=== PATIENT | female | born 1955 | race Caucasian/White ===

== ENCOUNTER 2016-08-13 12:06 | Inpatient (IN) | payer BC ==
[~2016-08-13] VITALS: Ht 170.2 cm; Wt 105.5 kg
[~2016-08-13 12:06] MED LIST: ALLEGRA ALLERG180 MG OR; ALPRAZOLAM0.25 MG PO; AMITRIPTYLINE 225 MG PO; BACID PROBIOTIC1 TAB PO; BENADRYL 25MG C25 MG PO; BISOPROLOL 5MG T5 MG PO; COREG 12.5 MG12.5 MG PO; DIFLUCAN 100MG100 MG PO; ENDOCET 325 MG-1 TA1 PO; ESTRADIOL1 EAC1 TD; FENOFIBRATE145 MG PO; FENTANYL 225 MCG/EAC TD; FISH OIL EC 1,1 EACH PO; FLAGYL 500MG.500 MG PO; GOOD NEIGHBOR600 M1 PO; GOOD SENSE400 MG/5 M PO; IBUPROFEN400 MG PO; INVANZ 1 GM1 GM IM; IPRATROPIUM BROM3 M2 IH; LEVAQUIN500 MG PO; LEVOTHYROXIN0.175 MG PO; LEVOTHYROXINE0.15 MG PO; LEXAPRO 10 MG T10 MG PO; MAG-G500 MG PO; MELATIN1 TAB PO; MELOXICAM15 MG PO; MIRALAX17 GM/PACK PO; NAMENDA XR28 MG PO; NEIGHBOR P PO; NYSTATIN 1 ML1 M1 TP; OMEPRAZOLE20 MG PO; PROMETHAZINE25 MG PR; PULMICORT0.25 MG/2 IH; SENNA LAXATIVE8.6 MG PO; SIMVASTATIN20 MG PO; TIMOPTIC OCUDOSE OP; VITAMIN C500 MG/15 PO; ZOFRAN4 MG PO
[2016-08-13 12:13] VITALS: BP 129/78
--- NOTE | 2016-08-13 12:26 | Emergency Room Report ---
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 N Clinical Suspician of Infection? N Mental Status: 1 - Regular (Normal Baseline) Sepsis Risk: Have you (or family members/close friends) recently traveled outside the [place]? N If Yes, where/when: Have you had exposure to infectious disease within the past month? TB? Other? Specify: Comment The patient was discharged 2 days ago after having diverticulitis with perforation and abscess requiring a sigmoid colectomy and partial small bowel resection on 08/04 and complicated by a postoperative ileus. She was doing well until this morning a couple of hours ago when she had sudden onset of severe lower abdominal pain inferior to her incision in the midline. She says it felt like gas that she could not pass any gas. She took a pain pill 1 hour ago and the pain has markedly improved now. No fever or vomiting. called Dr. Green and was informed he was in surgery and to have the patient brought to the emergency room. She was scheduled to have the remainder of her hemant removed at 2 PM today, rescheduled that for Tuesday. ALLERGIES Coded Allergies: adhesive tape (Intermediate, I-RASH 08/13/16) hydrocodone (Intermediate, I-ITCHING 08/13/16) Home Medications Active Scripts Levofloxacin (Levaquin 500MG) 500 MG PO DAILY #7 TAB Prov: 08/11/16 METRONIDAZOLE (Metronidazole) 500 MG PO TID #21 TAB Prov: 08/11/16 OXYCODONE HCL/ACETAMINOPHEN (Endocet 5-325 Tablet) 1-2 EACH PO Q4HP PRN pain #17 TAB Prov: 08/11/16 Reported Medications ACIDOPH/L.BULG/BIF.B/S.THERMOP (Bacid Caplet) 1 TAB PO BID IPRATROPIUM/ALBUTEROL SULFATE (Iprat-Albut 0.5-3(2.5) MG/3 Ml) 3 ML IH Q6HP PRN SHORTNESS OF AIR MELATONIN (Melatin) 1 TAB PO QHS Magnesium Hydroxide (Milk Of Magnesia) 30 ML PO BIDP PRN CONSTIPATION MEMANTINE HCL (Namenda XR) 28 MG PO QHS Nystatin (Nystatin 1 Ml) 1 CASEY TP DAILYP PRN RASH Promethazine Hcl (Promethazine) 25 MG [place] Q6HP PRN NAUSEA/VOMITING Senna Pod (Senna Laxative) 1 TAB PO DAILYP PRN CONSTIPATION TIMOLOL MALEATE/PF (Timoptic 0.5% Ocudose Drop) 0.2 ML OP DAILY Vit C/Ascorbate Ca/Ascorb Sod (Vitamin C 500 MG/15 Ml Liquid) 500 MG PO DAILY ALPRAZOLAM (Alprazolam 0.25MG) 0.25 MG PO BID Amitriptyline Hcl (Amitriptyline) 25 MG PO QHS Diphenhydramine Hcl (Benadryl 25MG CAP) 1-2 CAP PO Q6H PRN Carvedilol (Coreg 12.5Mg) 12.5 MG PO BID Fentanyl (Fentanyl 25MCG Patch) 25 MCG TD Q72H IBUPROFEN MICRONIZED (IBUPROFEN 400MG) 400 MG PO Q8HP PRN PAIN Escitalopram Oxalate (Lexapro 10MG) 10 MG PO DAILY Polyethylene Glycol 3350 (Miralax) 17 GM PO DAILY Omeprazole (Omeprazole 20MG) 20 MG PO DAILY Budesonide (Pulmicort) 0.25 MG IH BID ONDANSETRON HCL (Zofran 4MG Tab) 4 MG PO Q6HP PRN NAUSEA AND VOMITING History Medical History General CAD? No Angina: No [place]: No Hypertension? Yes Hyperlipidemia? Yes CHF? No DVT? No PE? No COPD? No Asthma? No Anemia? No GERD? No Gastric ulcers? No GI Bleed? No Hernia? No Thyroid Problems? Yes Hypothyroidism? No CVA? No Seizures? No Diabetes? No Renal Insuffiency? No End Stage Renal Disease? No UTI? No Stones? No BPH? No GB Disease: No Nephritic Syndrome? No Asplenia? No Hepatitis? No Sickle Cell Disease? No Arthritis? Yes Migraines? No Cataracts? No Glaucoma? No MRSA? No HIV? No TB? No Anxiety? No Depression? No Cancer? Yes Site: THYROID Immunization Hx Ped.Immunizations UTD Yes DT/Tetanus 04/22/2014 Flu 2016-17FSN Pneumonia Refuses Surgical Hx Previous Surgery?Y HYST JOINT FUSION-FINGER RK BLADDER TACK,TVT WED SINUS TONSIL/ADNOID REMOVAL THYROIDECTOMY PARATHYROIDECTOMY WISDOM TEETH TENDON REPAIR FINGER PELVIC BASAL CELL CARCINOMA TIGH RALPH BUNIONECTOMY VAGINAL SUSPENSION Family History Family Hx Diabetes Yes CAD Yes Hypertension Yes Hyperlipidemia Yes Cancer Yes TB No Social History Smoking Hx Smoker: Never Smoker Tobacco: No Type N/A Packs/day N/A Are you/the child exposed to second-hand smoke: No Alcohol Alcohol: No Review of Systems All Other Systems Reviewed and Negative Physical Exam Vital Signs Vital Signs Date Time Temp Pulse Resp B/P Pulse O2 O2 Flow FiO2 Ox Delivery Rate 08/13 1600 79 16 112/79 98 08/13 1436 79 16 107/70 95 08/13 1435 16 08/13 1311 97.8 83 18 90/62 95 08/13 1213 98.3 85 18 129/78 100 General Appearance normal appearance, WD/WN Eye Exam - bilateral eye normal exam, bilateral eye PERRL, bilateral eye EOMI Ear, Nose, Throat hearing grossly normal, normal ENT inspection Neck normal inspection, non-tender, supple, full range of motion Respiratory Status Yes: trachea midline, chest symmetrical, non tender chest. No: respiratory distress. Lung Sounds bilateral: normal breath sounds, lungs clear. 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 Yes Dewey was queried for this patient? No Reason not queried - emergent pt cond=no time Results/Orders Laboratory Tests 08/13/16 1520: Urine Color YELLOW, Urine Appearance CLEAR, Urine pH 6.5, Ur Specific [place] <= 1.005, Urine Protein NEGATIVE, Urine Ketones NEGATIVE, Urine Blood NEGATIVE, Urine Nitrate NEGATIVE, Urine Bilirubin NEGATIVE, Urine Urobilinogen 0.2, Ur Leukocyte Esterase NEGATIVE, Urine RBC OCC, Urine WBC 3-5, Ur Squamous Epith Cells 5-10, Urine Bacteria 1+, Hyaline Casts 3-5, Urine Glucose NEGATIVE 08/13/16 1345: Lactic Acid 2.4 H 08/13/16 1250: Sodium 140, Potassium 3.2 L, Chloride 104, Carbon Dioxide 24, BUN 11, Creatinine 0.9, Estimated Creat Clear 84, Estimated GFR (MDRD) 63, Glucose 147 H, Calcium 8.1 L, Total Bilirubin 0.3, AST 18, ALT 20, Alkaline Phosphatase 65, Total Protein 6.2 L, Albumin 3.2 L, Globulin 3.0, Albumin/Globulin Ratio 1.1, WBC 26.4 *H, RBC 4.84, Hgb 13.7, Hct 41.5, MCV 85.8, RDW 16.7, Plt Count 476 H, MPV 9.9, Gran % 80.1 H, Gran # 21.1 H, Total Counted 100, Lymphocytes % 11.0, Monocytes % 2.3, Eosinophils % 5.8, Basophils % 0.8, Neutrophils 81 H, Lymphocytes (Manual) 11, Lymphocytes # 2.9, Monocytes (Manual) 4, Monocytes # 0.6, Eosinophils # 1.5 H, Eosinophils # (Manual) 4 H, Basophils # 0.2, Platelet Estimate SLIGHT INCREASE, Hypochromasia 2+, Macrocytosis 1+, PUBS MCHC 32.9, MCH 28.3 08/13/16 1200: Peripheral Blood Smear Pending Current Medication Orders Sig/Masha Start time Last Medication Dose Route Stop Time Status Admin Iopamidol 75 ML ONCE ONE 08/13 1445 DC 08/13 IV 08/13 1446 1432 Sodium Chloride 10 ML ONCE ONE 08/13 1445 DC 08/13 IV 08/13 1446 1432 Hydromorphone HCl 1 MG ONCE ONE 08/13 1415 DCr 08/13 IV 08/13 1416 1435 Ondansetron HCl 4 MG ONCE ONE 08/13 1415 DC 08/13 IV 08/13 1416 1435 Ondansetron HCl 0 .STK-MED ONE 08/13 1351 DC .ROUTE Hydromorphone HCl 0 .STK-MED ONE 08/13 1350 DCr .ROUTE Sodium Chloride 1,000 ML .Q1H1M 08/13 1330 DC 08/13 IV 08/13 1430 1335 Sodium Chloride 1,000 ML .STK-MED ONE 08/13 1327 DC IV Diatrizoate Meglum/ 30 ML ONCE ONE 08/13 1230 DC 08/13 Diatrizoate Sod FT 08/13 1231 1229 Sodium Chloride 10 ML PRN PRN 08/13 1230 AC IV 08/14 1220 Diatrizoate Meglum/ 0 .STK-MED ONE 08/13 1222 DC Diatrizoate Sod .ROUTE Orders Procedure Date/time Status Decision to admit 08/13 1611 Active LACTIC ACID FOLLOW UP 08/13 1415 Active LACTIC ACID 08/13 1326 Complete DIFFERENTIAL-WBC 08/13 1250 Complete URINALYSIS/COMPLETE 08/[address] ABD/PELVIS REQ 08/13 1234 Complete IV SALINE LOCK 08/13 1220 Active CULTURE, BLOOD 08/13 1220 Active CBC WITH AUTO DIFF 08/13 1220 Complete CHEM 12 PROFILE 08/13 1220 Complete XRAY/CT/US XRAY/CT/US CT abdomen, pelvis Comment CT scan interpreted by radiologist: Status post sigmoidectomy with fluid collection in the bed of the removed sigmoid colon which could be postsurgical or due to early abscess. There is some mild stranding of the fat in the pelvic region which is nonspecific and could also be postsurgical or inflammatory. There is small amount of free air noted within the mesentery, not uncommon in a postsurgical patient. There is no evidence of extravasation of contrast. Oral contrast however has not reached the distal descending colon and rectal area. No evidence of intestinal obstruction. Progress - 12:30 PM: Declines pain medication. !5:25 PM: Discussed with Dr. Hood and Dr. Green. Initial call was to Dr. Green , but we were informed that Dr. 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 I spoke with Dr. Hood to prefer that we call Dr. Green. I spoke with Dr. Cosme who says that he is out of town and requests that Dr. Hood care for the patient, he says that he will call him himself. Patient seen by Dr. Allran in the emergency room. Departure Departure Disposition Still a Patient Clinical Impression Primary Impression: Leukocytosis Qualifiers: Leukocytosis type: unspecified Qualified Code: D72.829 - Elevated white blood cell count, unspecified Secondary Impressions: Abdominal pain Qualifiers: Abdominal location: lower abdomen, unspecified Qualified Code: R10.30 - Lower abdominal pain, unspecified Condition STABLE ED Critical Care Critical Care No at [id number]
[2016-08-13 13:14] LABS: LYMPH # 2.9 K/mm3 (0.7-4.5)
[2016-08-13 13:20] LABS: HEMOGLOBIN 13.7 g/dL (12.2-16.2)
[2016-08-13 13:48] LABS: NEUTROPHILS 81 % (42-76)
--- NOTE | 2016-08-13 15:02 | RADIOLOGY REPORT PS360 ---
CT ABD PELVIS W/ CONTRAST CLINICAL INDICATION: EXTREME LOWER ABD PAIN RECENT SURG. COMPARISON: 07/21/2016 TECHNIQUE: Axial images obtained with sagittal and coronal reformats. PROCEDURE: Oral Contrast: Gastroview IV Contrast: 75 mL's of Isovue-370 . FINDINGS: Patient has had interval bowel resection for diverticulitis. Lung bases are clear. The liver, spleen, adrenal glands, pancreas, gallbladder, and kidneys have an unremarkable appearance. There are postsurgical changes of the anterior abdominal wall. Scattered small gas bubbles are present in the lower abdomen and pelvis probably postsurgical. There is a fluid collection in the central aspect of the pelvis measuring approximately 11 cm AP and up to 3 cm transverse posteriorly and 7 cm transverse anteriorly with an air-fluid level. There is some minimal enhancement along the periphery of this collection. This could very well represent postsurgical changes. Cannot exclude the possibility of a developing abscess. This collection is in the region of the previously removed bed of the sigmoid colon. There is some mild thickening of the inferior aspect of the descending colon. No intestinal obstruction evident. There is a lipoma present at the left sartorius muscle. Degenerative changes are noted in the lumbar spine. There is some mild stranding in the fat within the pelvis which is nonspecific in a patient that is had recent abdominal pelvic surgery. IMPRESSION: 1. Status post post sigmoidectomy with a fluid collection in the bed of the removed sigmoid colon which could be postsurgical or due to early abscess. There is some mild stranding of the fat in the pelvic region which is nonspecific and could also be postsurgical or inflammatory. There is small amount of free air noted within the mesentery's not uncommon in a postsurgical patient. There is no evidence of extravasation of contrast. Oral contrast however has not reached the distal descending colon and rectal area. 2. No evidence of intestinal obstruction This report was generated using the voice recognition software. Please excuse any php mysql developer errors which may have been overlooked. Please contact our radiology department for clarification if needed.
[2016-08-13 15:33] LABS: URINE BILIRUBIN - DIPSTICK NEGATIVE (NEG); URINE BLOOD NEGATIVE (NEG)
--- NOTE | 2016-08-13 16:19 | HISTORY AND PHYSICAL REPORT ---
See Addendum History of Present Illness Chief Complaint: Abdominal Pain History of Present Illness: Patient is a 61 -year-old white female who underwent sigmoid colon resection and small bowel resection 9 days ago for refractory diverticulitis. She was discharged from the hospital 2 days ago. She has been on oral antibiotics at home. She states that she was in her usual state of health until today when she developed sudden onset of lower abdominal pain. There were no inciting symptoms. She presented to the emergency department where she was seen and evaluated. Her symptoms did improve. Her workup included CT scan which revealed mostly postoperative changes. Please see report. She was found to have a leukocytosis. Past Medical History Reports: hypertension. Surgical History Previous Surgery?Y HYST JOINT FUSION-FINGER RK BLADDER TACK,TVT WED SINUS TONSIL/ADNOID REMOVAL THYROIDECTOMY PARATHYROIDECTOMY WISDOM TEETH TENDON REPAIR FINGER PELVIC BASAL CELL CARCINOMA TIGH RALPH BUNIONECTOMY VAGINAL SUSPENSION Allergies Coded Allergies: adhesive tape (Intermediate, I-RASH 08/13/16) hydrocodone (Intermediate, I-ITCHING 08/13/16) Medications: Active Scripts Levofloxacin (Levaquin 500MG) 500 MG PO DAILY #7 TAB Prov: 08/11/16 METRONIDAZOLE (Metronidazole) 500 MG PO TID #21 TAB Prov: 08/11/16 OXYCODONE HCL/ACETAMINOPHEN (Endocet 5-325 Tablet) 1-2 EACH PO Q4HP PRN pain #17 TAB Prov: 08/11/16 Reported Medications ACIDOPH/L.BULG/BIF.B/S.THERMOP (Bacid Caplet) 1 TAB PO BID IPRATROPIUM/ALBUTEROL SULFATE (Iprat-Albut 0.5-3(2.5) MG/3 Ml) 3 ML IH Q6HP PRN SHORTNESS OF AIR MELATONIN (Melatin) 1 TAB PO QHS Magnesium Hydroxide (Milk Of Magnesia) 30 ML PO BIDP PRN CONSTIPATION MEMANTINE HCL (Namenda XR) 28 MG PO QHS Nystatin (Nystatin 1 Ml) 1 CASEY TP DAILYP PRN RASH Promethazine Hcl (Promethazine) 25 MG [place] Q6HP PRN NAUSEA/VOMITING Senna Pod (Senna Laxative) 1 TAB PO DAILYP PRN CONSTIPATION TIMOLOL MALEATE/PF (Timoptic 0.5% Ocudose Drop) 0.2 ML OP DAILY Vit C/Ascorbate Ca/Ascorb Sod (Vitamin C 500 MG/15 Ml Liquid) 500 MG PO DAILY ALPRAZOLAM (Alprazolam 0.25MG) 0.25 MG PO BID Amitriptyline Hcl (Amitriptyline) 25 MG PO QHS Diphenhydramine Hcl (Benadryl 25MG CAP) 1-2 CAP PO Q6H PRN Carvedilol (Coreg 12.5Mg) 12.5 MG PO BID Fentanyl (Fentanyl 25MCG Patch) 25 MCG TD Q72H IBUPROFEN MICRONIZED (IBUPROFEN 400MG) 400 MG PO Q8HP PRN PAIN Escitalopram Oxalate (Lexapro 10MG) 10 MG PO DAILY Polyethylene Glycol 3350 (Miralax) 17 GM PO DAILY Omeprazole (Omeprazole 20MG) 20 MG PO DAILY Budesonide (Pulmicort) 0.25 MG IH BID ONDANSETRON HCL (Zofran 4MG Tab) 4 MG PO Q6HP PRN NAUSEA AND VOMITING Additional medical history: Diverticulitis Hyperlipidemia Arthritis Smoking Hx Tobacco: No Smoker: Never Smoker Type: N/A Packs/day: N/A Are you/the child exposed to second-hand smoke: No Alcohol Alcohol: No Hx of Drug Use Drug Use? No Review of Systems Constitutional Positive for: fatigue. No: chills. Skin No: abrasions. Immune/allergy No: anaphalaxis. Eyes No: vision loss. ENT No: hearing loss. Respiratory No: shortness of air. Cardiovascular No: chest pain. GI Positive for: abdomen. No: diarrhea, hematochezia. (female) No: hematuria. Musculoskeletal Positive for: joint pain. Heme No: bleeding. Endocrine No: dyspnea. Neurological No: change in LOC. Psychiatric No: agitation. Dx/assessment/plan Problem List 1. Diverticulitis Code status: full code Plan: Given the leukocytosis and acute onset of pain with some mild equivocal findings on CT scan plan will be for admission for observation to ensure pain is improving and for IV antibiotics with a repeat complete blood count to ensure leukocytosis improving. We'll go ahead and give clear liquid diet at this time. Start intravenous levofloxacin and metronidazole. Repeat complete blood count in the morning. at [id number]
--- NOTE | 2016-08-13 16:20 | ACUTE CARE PROGRESS NOTE (QUA) ---
Progress note: - Please see history and physical at 1627
--- NOTE | 2016-08-13 16:20 | ACUTE CARE PROGRESS NOTE (QUA) ---
Progress note: - Please see history and physical at 1621
[2016-08-13 16:50] VITALS: BP 123/73
[2016-08-13 16:57] VITALS: BP 123/73
[2016-08-13] MEDS ORDERED: VITAMIN D31000 IU PO (17:29)
[2016-08-13] MEDS ORDERED: BISOPROLOL 5MG T5 MG PO (17:30)
[2016-08-13] MEDS ORDERED: FENOFIBRATE145 MG PO (17:31)
[2016-08-13] MEDS ORDERED: LEVOTHYROXINE0.15 M1 PO (17:32)
[2016-08-13] MEDS ORDERED: DIFLUCAN 100MG100 MG PO (17:32)
[2016-08-13 19:29] VITALS: BP 118/60
[2016-08-13 20:33] VITALS: BP 118/60
[2016-08-14 03:41] VITALS: BP 108/64
[2016-08-14 06:49] LABS: LYMPH # 1.3 K/mm3 (0.7-4.5); LYMPH % 5.5 % (10-50.0)
[2016-08-14 07:02] LABS: HEMOGLOBIN 12.3 g/dL (12.2-16.2)
[2016-08-14 07:41] VITALS: BP 102/64
[2016-08-14 09:00] VITALS: BP 102/64
--- NOTE | 2016-08-14 09:12 | SURGEON PROGRESS NOTE ---
Subjective data Subjective data: No significant abdominal pain at this time. She is concerned about "sepsis". Objective data Vitals,I&O,and Labs: Vital signs, intake and output,and available lab data for the last 24 hours is as noted below. Vital Signs Date Time Temp Pulse Resp B/P Pulse O2 O2 Flow FiO2 Ox Delivery Rate 08/14 0900 97.1 99 20 102/64 96 08/14 0741 97.1 99 20 102/64 96 ROOM AIR 08/14 0341 97.8 104 18 108/64 96 ROOM AIR 08/14 0054 18 08/13 2033 97.9 93 18 118/60 95 08/13 1929 97.9 93 18 118/60 95 ROOM AIR 08/13 1816 20 08/13 1657 97.4 106 20 123/73 99 ROOM AIR 08/13 1650 106 08/13 1650 97.4 106 20 123/73 08/13 1650 99 ROOM AIR 08/13 1638 97.8 79 16 112/79 98 08/13 1600 79 16 112/79 98 08/13 1436 79 16 107/70 95 08/13 1435 16 08/13 1311 97.8 83 18 90/62 95 08/13 1213 98.3 85 18 129/78 100 08/13 1500 08/13 2300 08/14 0700 Intake Total 360 Output Total Balance 360 Intake, Oral 360 Patient 81.648 kg 88.026 kg Weight Laboratory Tests Test Result Date Time Chemistry Sodium (mmoL/L) 140 08/13 1250 Potassium (mmoL/L) 3.2 08/13 1250 Chloride (mmoL/L) 104 08/13 1250 Carbon Dioxide (mmoL/L) 24 08/13 1250 BUN (mg/dL) 11 08/13 1250 Creatinine (mg/dL) 0.9 08/13 1250 Estimated Creat Clear (ML/MIN) 84 08/13 1250 Estimated GFR (MDRD) (ML/MIN) 63 08/13 1250 Glucose (mg/dL) 147 08/13 1250 Lactic Acid (MMOL/L) 4.8 08/13 1750 Calcium (mg/dL) 8.1 08/13 1250 Total Bilirubin (mg/dL) 0.3 08/13 1250 AST (U/L) 18 08/13 1250 ALT (U/L) 20 08/13 1250 Alkaline Phosphatase (U/L) 65 08/13 1250 Total Protein (gm/dL) 6.2 08/13 1250 Albumin (gm/dL) 3.2 08/13 1250 Globulin (gm/dL) 3.0 08/13 1250 Albumin/Globulin Ratio 1.1 08/13 1250 Hematology WBC (K/MM3) 23.9 08/14 615 RBC (M/mm3) 4.09 08/14 615 Hgb (g/dL) 12.3 08/14 615 Hct (%) 34.8 08/14 615 MCV (fl) 85.1 08/14 615 RDW (%) 16.7 08/14 615 Plt Count (K/mm3) 335 08/14 615 MPV (fl) 9.3 08/14 615 Gran % (%) 91.5 08/14 615 Gran # (K/mm3) 21.9 08/14 615 Total Counted (#CELLS) 100 08/13 1250 Lymphocytes % (%) 5.5 08/14 615 Monocytes % (%) 2.6 08/14 615 Eosinophils % (%) 0.3 08/14 615 Basophils % (%) 0.2 08/14 615 Neutrophils (%) 81 08/13 1250 Lymphocytes (Manual) (%) 11 08/13 1250 Lymphocytes # (K/mm3) 1.3 08/14 615 Monocytes (Manual) (%) 4 08/13 1250 Monocytes # (K/mm3) 0.6 08/14 615 Eosinophils # (K/mm3) 0.1 08/14 615 Eosinophils # (Manual) (%) 4 08/13 1250 Basophils # (K/MM3) 0.0 08/14 615 Platelet Estimate SLIGHT INCREASE 08/13 1250 Hypochromasia 2+ 08/13 1250 Macrocytosis 1+ 08/13 1250 PUBS MCHC (g/dl) 34.5 08/14 615 Immunology MCH (pg) 29.4 08/14 615 Urines Urine Color YELLOW 08/13 1520 Urine Appearance CLEAR 08/13 1520 Urine pH 6.5 08/13 1520 Ur Specific [place] <= 1.005 08/13 1520 Urine Protein (mg/dL) NEGATIVE 08/13 1520 Urine Ketones (mg/dL) NEGATIVE 08/13 1520 Urine Blood NEGATIVE 08/13 1520 Urine Nitrate NEGATIVE 08/13 1520 Urine Bilirubin NEGATIVE 08/13 1520 Urine Urobilinogen (E.U./dL) 0.2 08/13 1520 Ur Leukocyte Esterase NEGATIVE 08/13 1520 Urine RBC (rbc/hpf) OCC 08/13 1520 Urine WBC (wbc/hpf) 3-5 08/13 1520 Ur Squamous Epith Cells (#/hpf) 5-10 08/13 1520 Urine Bacteria 1+ 08/13 1520 Hyaline Casts (#/lpf) 3-5 08/13 1520 Urine Glucose NEGATIVE 08/13 1520 Assessment findings Assessment Exam General appearance: no acute distress Cardiovascular: regular rate & rhythm Respiratory: no respiratory distress ABD: soft (incision c/d/i), minimal tenderness. No peritonitis. Patient plan Diagnoses: 1) Complicated diverticulitis with recent sigmoid colectomy and concomitant small bowel resection. 2) leukocytosis 3) recent removal of PICC Note: The patient remains afebrile with stable normal vital signs. Her abdominal exam is consistent with her postoperative state and is not indicative of postoperative intra-abdominal catastrophe/peritonitis. She does have some pelvic fluid noted on CT scan, but no sign of abscess. All further findings are consistent with her postoperative state. Plan: Ambulate, Antibiotics Additional data: The patient will be changed to Zosyn and vancomycin also be started as she has recently had PICC removal. Repeat CT scan in 3-5 days to reassess pelvic fluid. at 0912
--- NOTE | 2016-08-14 11:19 | CONSULT NOTE ---
Pharmacokinetic Consult Date of consult: 08/14/16 Time of consult: 1117 Referring provider: DR. ZAYAS Reason for consult: VANCOMYCIN TROUGH LEVEL Allergies: Coded Allergies: adhesive tape (Intermediate, I-RASH 08/13/16) hydrocodone (Intermediate, I-ITCHING 08/13/16) Home Medications: Active Scripts Levofloxacin (Levaquin 500MG) 500 MG PO DAILY #7 TAB Prov: 08/11/16 METRONIDAZOLE (Metronidazole) 500 MG PO TID #21 TAB Prov: 08/11/16 Reported Medications ACIDOPH/L.BULG/BIF.B/S.THERMOP (Bacid Caplet) 1 TAB PO BID Nystatin (Nystatin 1 Ml) 1 CASEY TP DAILYP PRN RASH Omeprazole (Omeprazole 20MG) 20 MG PO DAILY CHOLECALCIFEROL (VITAMIN D3) (Vitamin D) 5,000 IUNITS PO DAILY BISOPROLOL FUMARATE (Bisoprolol 5MG) 2.5 MG PO DAILY #90 FENOFIBRATE NANOCRYSTALLIZED (Fenofibrate) 145 MG PO DAILY #90 Levothyroxine Sodium 0.15 MG PO DAILY #15 Fluconazole (Diflucan 100MG) 100 MG PO DAILY #30 Height (feet): 5 Height (inches): 7.00 Medical History: CAD? No Angina: No [place]: No Hypertension? Yes Hyperlipidemia? Yes CHF? No DVT? No PE? No COPD? No Asthma? No Anemia? No GERD? No Gastric ulcers? No GI Bleed? No Hernia? No Thyroid Problems? Yes Hypothyroidism? No CVA? No Seizures? No Diabetes? No Renal Insuffiency? No UTI? No Stones? No BPH? No GB Disease: No Nephritic Syndrome? No Asplenia? No Hepatitis? No Sickle Cell Disease? No Arthritis? Yes Migraines? No Cataracts? No Glaucoma? No MRSA? No HIV? No TB? No Anxiety? No Depression? No Cancer? Yes Site: THYROID Labs: Laboratory Tests 08/14/16 0615: WBC 23.9 *H, RBC 4.09 L, Hgb 12.3, Hct 34.8 L, MCV 85.1, RDW 16.7, Plt Count 335, MPV 9.3, Gran % 91.5 H, Gran # 21.9 H, Lymphocytes % 5.5 L, Monocytes % 2.6, Eosinophils % 0.3, Basophils % 0.2, Lymphocytes # 1.3, Monocytes # 0.6, Eosinophils # 0.1, Basophils # 0.0, PUBS MCHC 34.5, MCH 29.4 08/13/16 1750: Lactic Acid 4.8 H 08/13/16 1520: Urine Color YELLOW, Urine Appearance CLEAR, Urine pH 6.5, Ur Specific [place] <= 1.005, Urine Protein NEGATIVE, Urine Ketones NEGATIVE, Urine Blood NEGATIVE, Urine Nitrate NEGATIVE, Urine Bilirubin NEGATIVE, Urine Urobilinogen 0.2, Ur Leukocyte Esterase NEGATIVE, Urine RBC OCC, Urine WBC 3-5, Ur Squamous Epith Cells 5-10, Urine Bacteria 1+, Hyaline Casts 3-5, Urine Glucose NEGATIVE 08/13/16 1345: Lactic Acid 2.4 H 08/13/16 1250: Sodium 140, Potassium 3.2 L, Chloride 104, Carbon Dioxide 24, BUN 11, Creatinine 0.9, Estimated Creat Clear 84, Estimated GFR (MDRD) 63, Glucose 147 H, Calcium 8.1 L, Total Bilirubin 0.3, AST 18, ALT 20, Alkaline Phosphatase 65, Total Protein 6.2 L, Albumin 3.2 L, Globulin 3.0, Albumin/Globulin Ratio 1.1, WBC 26.4 *H, RBC 4.84, Hgb 13.7, Hct 41.5, MCV 85.8, RDW 16.7, Plt Count 476 H, MPV 9.9, Gran % 80.1 H, Gran # 21.1 H, Total Counted 100, Lymphocytes % 11.0, Monocytes % 2.3, Eosinophils % 5.8, Basophils % 0.8, Neutrophils 81 H, Lymphocytes (Manual) 11, Lymphocytes # 2.9, Monocytes (Manual) 4, Monocytes # 0.6, Eosinophils # 1.5 H, Eosinophils # (Manual) 4 H, Basophils # 0.2, Platelet Estimate SLIGHT INCREASE, Hypochromasia 2+, Macrocytosis 1+, PUBS MCHC 32.9, MCH 28.3 Microbiology 08/13 1326 BLOOD: Anaerobic Blood Culture - CAN Cancelled: DUPLICATE 08/13 1326 BLOOD: Aerobic Blood Culture - CAN Cancelled: DUPLICATE 08/13 1326 BLOOD: Anaerobic Blood Culture - CAN Cancelled: DUPLICATE 12/16 1326 BLOOD: Aerobic Blood Culture - CAN Cancelled: DUPLICATE 08/13 1250 BLOOD: Anaerobic Blood Culture - RECD 08/13 1250 BLOOD: Aerobic Blood Culture - RECD 08/13 1250 BLOOD: Anaerobic Blood Culture - RECD 08/13 1250 BLOOD: Aerobic Blood Culture - RECD Problem List: 1. Leukocytosis Plan: BASED ON PATIENT FACTORS, RECOMMEND VANCOMYCIN 1750 MG IV Q18H. WILL OBTAIN VANCOMYCIN TROUGH LEVEL PRIOR TO 4TH DOSE. PHARMACY WILL FOLLOW DAILY AND ADJUST APPROPRIATE. at 1113
--- NOTE | 2016-08-14 11:19 | PHARMACY CLINIC NOTE ---
Patient Demographics Patient Demographics Admission date: 08/13/16 Date: 08/14/16 Time: 1119 Allergies Coded Allergies: adhesive tape (Intermediate, I-RASH 08/13/16) hydrocodone (Intermediate, I-ITCHING 08/13/16) HEIGHT- FT: 5 IN: 7.00 K.026 VTE General Information Labs: Laboratory Tests 08/14 08/13 0615 1250 Hematology Hgb (12.2 - 16.2 g/dL) 12.3 13.7 Hct (37.0 - 47.0 %) 34.8 L 41.5 Plt Count (142 - 424 K/mm3) 335 476 H Disclaimer The following section includes nursing documentation that has been pulled in for pharmacy review. Patient's VTE score: 1 Patient's VTE Risk: VERY LOW RISK Clinical trial participant? No VTE prophylaxis NQF [id number] VTE prophylaxis ordered? Yes Type of prophylaxis/treatment: EMMANUEL at 1115
[2016-08-14 15:59] VITALS: BP 118/69
[2016-08-14 20:03] VITALS: BP 112/65
[2016-08-14 20:06] VITALS: BP 112/65
[2016-08-15 03:52] VITALS: BP 116/66
[2016-08-15 06:56] LABS: LYMPH # 1.8 K/mm3 (0.7-4.5); LYMPH % 8.3 % (10-50.0)
[2016-08-15 07:00] LABS: HEMOGLOBIN 10.9 g/dL (12.2-16.2)
[2016-08-15 07:13] LABS: NEUTROPHILS 80 % (42-76)
[2016-08-15 07:37] VITALS: BP 108/65
[2016-08-15 09:48] VITALS: BP 108/65
[2016-08-15 16:17] VITALS: BP 105/68
[2016-08-15 20:08] VITALS: BP 126/66
[2016-08-15 20:59] VITALS: BP 126/66
[2016-08-16 04:00] VITALS: BP 135/76
[2016-08-16 07:46] VITALS: BP 122/72
--- NOTE | 2016-08-16 07:56 | SURGEON PROGRESS NOTE ---
Subjective data Subjective data: YONATHAN ROMERO is a 61 F .Patient denies complaint of nausea and vomitting.She reports her last pain level as 0 on a 0-10 pain scale. No complaints. Has been taking some pain meds. Tolerating clears but not much appetite. Multiple liquid stools. Assessment findings Assessment Exam General appearance: normal appearance, alert ABD: soft, no tenderness Patient plan Plan: Advance diet, Antibiotics Additional data: Replace potassium. Check stool for C. Diff. Advance to full liquids. at [id number]
[2016-08-16 09:57] LABS: LYMPH % 6.9 % (10-50.0)
[2016-08-16 09:58] LABS: LYMPH # 1.1 K/mm3 (0.7-4.5)
[2016-08-16 11:49] LABS: HEMOGLOBIN 9.6 g/dL (12.2-16.2)
--- NOTE | 2016-08-16 16:24 | CONSULT NOTE ---
Pharmacokinetic Consult Date of consult: 08/16/16 Time of consult: 1621 Referring provider: DR. ZAYAS Reason for consult: VANCOMYCIN LEVEL Allergies: Coded Allergies: adhesive tape (Intermediate, I-RASH 08/13/16) hydrocodone (Intermediate, I-ITCHING 08/13/16) Home Medications: Active Scripts Levofloxacin (Levaquin 500MG) 500 MG PO DAILY #7 TAB Prov: 08/11/16 METRONIDAZOLE (Metronidazole) 500 MG PO TID #21 TAB Prov: 08/11/16 Reported Medications ACIDOPH/L.BULG/BIF.B/S.THERMOP (Bacid Caplet) 1 TAB PO BID Nystatin (Nystatin 1 Ml) 1 CASEY TP DAILYP PRN RASH Omeprazole (Omeprazole 20MG) 20 MG PO DAILY CHOLECALCIFEROL (VITAMIN D3) (Vitamin D) 5,000 IUNITS PO DAILY BISOPROLOL FUMARATE (Bisoprolol 5MG) 2.5 MG PO DAILY #90 FENOFIBRATE NANOCRYSTALLIZED (Fenofibrate) 145 MG PO DAILY #90 Levothyroxine Sodium 0.15 MG PO DAILY #15 Fluconazole (Diflucan 100MG) 100 MG PO DAILY #30 Height (feet): 5 Height (inches): 7.00 Medical History: CAD? No Angina: No [place]: No Hypertension? Yes Hyperlipidemia? Yes CHF? No DVT? No PE? No COPD? No Asthma? No Anemia? No GERD? No Gastric ulcers? No GI Bleed? No Hernia? No Thyroid Problems? Yes Hypothyroidism? No CVA? No Seizures? No Diabetes? No Renal Insuffiency? No UTI? No Stones? No BPH? No GB Disease: No Nephritic Syndrome? No Asplenia? No Hepatitis? No Sickle Cell Disease? No Arthritis? Yes Migraines? No Cataracts? No Glaucoma? No MRSA? No HIV? No TB? No Anxiety? No Depression? No Cancer? Yes Site: THYROID Labs: Laboratory Tests 08/16/16 1505: Vancomycin Trough 18.1 08/16/16 0615: Sodium 141, Potassium 2.6 *L, Chloride 107, Carbon Dioxide 27, BUN 16, Creatinine 1.3 H, Estimated Creat Clear 62, Estimated GFR (MDRD) 42 L, Glucose 114 H, Calcium 6.7 L, WBC 15.3 H, RBC 3.38 L, Hgb 9.6 L, Hct 29.2 L, MCV 86.4, RDW 16.6, Plt Count 320, MPV 10.0, Gran % 86.3 H, Gran # 13.2 H, Lymphocytes % 6.9 L, Monocytes % 3.8, Eosinophils % 1.9, Basophils % 0.2, Lymphocytes # 1.1, Monocytes # 0.6, Eosinophils # 0.3, Basophils # 0.0, PUBS MCHC 33.1, MCH 28.6 Plan: BASED ON PATIENT VANCOMYCIN TROUGH LEVEL 18.1 MCG/ML, RECOMMEND PATIENT CONTINUE WITH THE CURRENT DOSE OF VANCOMYCIN 1750 MG Q18H AT THIS TIME. PHARMACY WILL FOLLOW DAILY AND ADJUST APPROPRIATE. KAYLA ARANGO PHARMD at [phone]
[2016-08-16 16:30] VITALS: BP 128/65
[2016-08-16 20:00] VITALS: BP 128/65; BP 138/77
[2016-08-16 20:07] VITALS: BP 138/77
[2016-08-17 04:10] VITALS: BP 125/75
[2016-08-17 06:44] LABS: HEMOGLOBIN 9.3 g/dL (12.2-16.2); LYMPH # 1.3 K/mm3 (0.7-4.5); LYMPH % 13.2 % (10-50.0)
--- NOTE | 2016-08-17 07:27 | SURGEON PROGRESS NOTE ---
Subjective data Subjective data: YONATHAN ROMERO is a 61 F .Patient denies complaint of nausea and vomitting.She reports her last pain level as 0 on a 0-10 pain scale. Patient feels better. Had discomfort with runs of potassium yesterday. Assessment findings Assessment Exam General appearance: normal appearance, alert ABD: soft Comment: Abdomen is soft. Somewhat hyperactive bowel sounds. Patient plan Plan: Antibiotics Additional data: WBC normal today. K+ within reasonable limits. Creatinine elevated, etiology unclear. at 9537
[2016-08-17 07:44] VITALS: BP 134/73
--- NOTE | 2016-08-17 08:20 | SURGEON PROGRESS NOTE ---
Subjective data Subjective data: YONATHAN ROMERO is a 61 F .Patient denies complaint of nausea and vomitting.She reports her last pain level as 0 on a 0-10 pain scale. Assessment findings Assessment Exam General appearance: normal appearance, alert, active Patient plan Plan: Antibiotics Antibiotic Stewardship (2) Current Culture Results Microbiology 08/13 1326 BLOOD: Anaerobic Blood Culture - CAN Cancelled: DUPLICATE 08/13 1326 BLOOD: Aerobic Blood Culture - CAN Cancelled: DUPLICATE Infxn that will respond? Yes Right drug,dose,and route? Yes More targeted antbx? No How long atbx needed? 10 at 0820
[2016-08-17 16:17] VITALS: BP 131/71
[2016-08-17 19:48] VITALS: BP 137/76
[2016-08-17 20:45] VITALS: BP 137/76
--- NOTE | 2016-08-17 22:04 | ACUTE CARE PROGRESS NOTE (QUA) ---
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 Diverticulitis 2. Renal insufficiency Patient condition Improving Plan: make medication changes This inpt stay is expected to cross 2 MNs from start of care Yes Comments: asked to see this pt who is well known to me from prev admits - she has elevated creatine w/o change in bun and after exam and review feel it is related to her meds- i discussed with phar and will adjust and follow renal function and pt with you- thank you Antibiotic Stewardship (2) Infxn that will respond? Yes Right drug,dose,and route? Yes More targeted antbx? No at 2203
[2016-08-18 04:02] VITALS: BP 131/73
[2016-08-18 07:00] LABS: HEMOGLOBIN 9.1 g/dL (12.2-16.2); LYMPH # 1.3 K/mm3 (0.7-4.5); LYMPH % 17.5 % (10-50.0)
--- NOTE | 2016-08-18 07:11 | SURGEON PROGRESS NOTE ---
Subjective data Subjective data: YONATHAN ROMERO is a 61 F .Patient denies complaint of nausea and vomitting.She reports her last pain level as 0 on a 0-10 pain scale. Patient feels well. No major complaints. Less "runny" stools. Assessment findings Assessment Exam General appearance: normal appearance, alert ABD: normal bowel sounds, soft, no tenderness Patient plan Plan: Antibiotics Additional data: Patient given extra IV fluids yesterday. Creatinine pending today. C. Diff STILL pending. If creatinine recovers may consider repeat CT scan tomorrow. Antibiotic Stewardship (2) Infxn that will respond? Yes Right drug,dose,and route? Yes More targeted antbx? No at 0711
[2016-08-18 07:42] VITALS: BP 139/65
[2016-08-18 08:51] VITALS: BP 139/65
--- NOTE | 2016-08-18 10:42 | CONSULT NOTE ---
Pharmacokinetic Consult Date of consult: 08/18/16 Time of consult: 1040 Referring provider: DR. ZAYAS Reason for consult: VANCOMYCIN TROUGH LEVEL Allergies: Coded Allergies: adhesive tape (Intermediate, I-RASH 08/13/16) hydrocodone (Intermediate, I-ITCHING 08/13/16) Home Medications: Active Scripts Levofloxacin (Levaquin 500MG) 500 MG PO DAILY #7 TAB Prov: 08/11/16 METRONIDAZOLE (Metronidazole) 500 MG PO TID #21 TAB Prov: 08/11/16 Reported Medications ACIDOPH/L.BULG/BIF.B/S.THERMOP (Bacid Caplet) 1 TAB PO BID Nystatin (Nystatin 1 Ml) 1 CASEY TP DAILYP PRN RASH Omeprazole (Omeprazole 20MG) 20 MG PO DAILY CHOLECALCIFEROL (VITAMIN D3) (Vitamin D) 5,000 IUNITS PO DAILY BISOPROLOL FUMARATE (Bisoprolol 5MG) 2.5 MG PO DAILY #90 FENOFIBRATE NANOCRYSTALLIZED (Fenofibrate) 145 MG PO DAILY #90 Levothyroxine Sodium 0.15 MG PO DAILY #15 Fluconazole (Diflucan 100MG) 100 MG PO DAILY #30 Height (feet): 5 Height (inches): 7.00 Medical History: CAD? No Angina: No [place]: No Hypertension? Yes Hyperlipidemia? Yes CHF? No DVT? No PE? No COPD? No Asthma? No Anemia? No GERD? No Gastric ulcers? No GI Bleed? No Hernia? No Thyroid Problems? Yes Hypothyroidism? No CVA? No Seizures? No Diabetes? No Renal Insuffiency? No UTI? No Stones? No BPH? No GB Disease: No Nephritic Syndrome? No Asplenia? No Hepatitis? No Sickle Cell Disease? No Arthritis? Yes Migraines? No Cataracts? No Glaucoma? No MRSA? No HIV? No TB? No Anxiety? No Depression? No Cancer? Yes Site: THYROID Labs: Laboratory Tests 08/18/16 0645: Sodium 142, Potassium 3.1 L, Chloride 111 H, Carbon Dioxide 21 L, BUN 16, Creatinine 3.2 H, Estimated Creat Clear 25 L, Estimated GFR (MDRD) 15 *L, Glucose 88, Calcium 7.1 L, WBC 7.2, RBC 3.26 L, Hgb 9.1 L, Hct 27.8 L, MCV 85.3, RDW 16.1, Plt Count 357, MPV 9.3, Gran % 68.8, Gran # 4.9, Lymphocytes % 17.5, Monocytes % 6.6, Eosinophils % 6.6, Basophils % 0.5, Lymphocytes # 1.3, Monocytes # 0.5, Eosinophils # 0.5 H, Basophils # 0.0, PUBS MCHC 32.6, MCH 27.8 , Random Vancomycin 27.4 Problem List: 1. Leukocytosis Plan: BASED ON VANCOMYCIN TROUGH LEVEL THIS MORNING, RECOMMEND HOLDING DOSE TODAY AND RE-CHECK SRCR AND VANCOMYCIN TROUGH LEVEL TOMORROW MORNING. SRCR HAS INCREASED TO 3.2 TODAY. PHARMACY WILL CONTINUE TO MONITOR DAILY AND ADJUST APPROPRIATE. at 2779
--- NOTE | 2016-08-18 12:25 | ACUTE CARE PROGRESS NOTE (QUA) ---
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 Diverticulitis 2. Renal insufficiency Patient condition Improving Plan: make medication changes This inpt stay is expected to cross 2 MNs from start of care Yes Comments: cr up today and again will adjust meds - Antibiotic Stewardship (2) Infxn that will respond? Yes Right drug,dose,and route? Yes More targeted antbx? No at 1226
--- NOTE | 2016-08-18 12:25 | ACUTE CARE PROGRESS NOTE (QUA) ---
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 Diverticulitis 2. Renal insufficiency Patient condition Improving Plan: make medication changes This inpt stay is expected to cross 2 MNs from start of care Yes Comments: cr up today and again will adjust meds - Antibiotic Stewardship (2) Infxn that will respond? Yes Right drug,dose,and route? Yes More targeted antbx? No at 1220
[2016-08-18 13:16] LABS: AEROMONAS NOT DETECTED (NOT DETECTE); ASTROVIRUS NOT DETECTED (NOT DETECTE); CYCLOSPORA CAYETANENSIS NOT DETECTED (NOT DETECTE); E COLI O157 NOT DETECTED (NOT DETECTE); ENTEROAGGREGATIVE E COLI NOT DETECTED (NOT DETECTE); ENTEROPATHOGENIC E COLI NOT DETECTED (NOT DETECTE); ENTEROTOXIGENIC E COLI NOT DETECTED (NOT DETECTE); NOROVIRUS NOT DETECTED (NOT DETECTE); SAPOVIRUS NOT DETECTED (NOT DETECTE); SHIGA-LIKE TOXIN PROD. E COLI NOT DETECTED (NOT DETECTE); SHIGELLA/ENTEROINVASIVE E COLI NOT DETECTED (NOT DETECTE); VIBRIO CHOLERAE NOT DETECTED (NOT DETECTE)
[2016-08-18 16:13] VITALS: BP 128/70
[2016-08-18 20:00] VITALS: BP 151/70
[2016-08-18 21:00] VITALS: BP 151/70
[2016-08-19] VITALS (22 sets, daily range): BP systolic 114–146; BP diastolic 54–84
[2016-08-19 06:56] LABS: HEMOGLOBIN 8.7 g/dL (12.2-16.2); LYMPH # 1.3 K/mm3 (0.7-4.5); LYMPH % 19.1 % (10-50.0)
--- NOTE | 2016-08-19 07:31 | SURGEON PROGRESS NOTE ---
Subjective data Subjective data: Feels "worn out". No abdominal pain. Objective data Vitals,I&O,and Labs: Vital signs, intake and output,and available lab data for the last 24 hours is as noted below. Vital Signs Date Time Temp Pulse Resp B/P Pulse O2 O2 Flow FiO2 Ox Delivery Rate 08/19 823 98.2 78 16 146/64 98 08/19 08 98.2 78 16 146/64 98 ROOM AIR 08/19 0400 98.0 63 16 138/73 97 ROOM AIR 08/18 2100 98.3 67 16 151/70 99 08/18 2049 16 08/18 2000 98.3 67 16 151/70 99 ROOM AIR 08/18 1613 97.7 60 16 128/70 100 ROOM AIR 08/18 1500 08/18 2300 08/19 0700 Intake Total 480 2086 3351 Output Total Balance 480 2086 3351 Intake, IV 1606 3351 Intake, Oral 480 480 Output, Stool Patient 93.894 kg Weight Laboratory Tests Test Result Date Time Chemistry Sodium (mmoL/L) 143 08/19 0630 Potassium (mmoL/L) 3.0 08/19 06 Chloride (mmoL/L) 111 08/19 0630 Carbon Dioxide (mmoL/L) 22 08/19 06 BUN (mg/dL) 17 08/19 0630 Creatinine (mg/dL) 3.2 08/19 06 Estimated Creat Clear (ML/MIN) 27 08/19 06 Estimated GFR (MDRD) (ML/MIN) 15 08/19 0630 Glucose (mg/dL) 77 08/19 0630 POC Glucose (mg/dl) 153 08/14 1437 Lactic Acid (MMOL/L) 4.8 08/13 1750 Calcium (mg/dL) 7.1 08/19 0630 Total Bilirubin (mg/dL) 0.3 08/13 1250 AST (U/L) 18 08/13 1250 ALT (U/L) 20 08/13 1250 Alkaline Phosphatase (U/L) 65 08/13 1250 Total Protein (gm/dL) 6.2 08/13 1250 Albumin (gm/dL) 3.2 08/13 1250 Globulin (gm/dL) 3.0 08/13 1250 Albumin/Globulin Ratio 1.1 08/13 1250 Hematology WBC (K/MM3) 6.8 12/22 0645 RBC (M/mm3) 3.14 08/19 645 Hgb (g/dL) 8.7 08/19 645 Hct (%) 26.5 08/19 645 MCV (fl) 84.4 08/19 645 RDW (%) 16.1 08/19 645 Plt Count (K/mm3) 350 08/19 645 MPV (fl) 9.8 08/19 645 Gran % (%) 65.8 08/19 645 Gran # (K/mm3) 4.5 08/19 645 Total Counted (#CELLS) 100 08/15 630 Lymphocytes % (%) 19.1 08/19 645 Monocytes % (%) 6.6 08/19 645 Eosinophils % (%) 7.6 08/19 645 Basophils % (%) 0.8 08/19 645 Neutrophils (%) 80 08/15 630 Band Neutrophils (%) 7 08/15 630 Lymphocytes (Manual) (%) 12 08/15 630 Lymphocytes # (K/mm3) 1.3 08/19 645 Monocytes (Manual) (%) 4 08/13 1250 Monocytes # (K/mm3) 0.5 08/19 645 Eosinophils # (K/mm3) 0.5 08/19 645 Eosinophils # (Manual) (%) 1 08/15 630 Basophils # (K/MM3) 0.1 08/19 645 Platelet Estimate NORMAL 08/15 630 Polychromasia SL. 08/15 630 Hypochromasia 2+ 08/13 1250 Poikilocytosis SL. 08/15 630 Macrocytosis 1+ 08/13 1250 PUBS MCHC (g/dl) 32.9 08/19 645 Immunology MCH (pg) 27.7 08/19 645 Other Body Source Stl Cyclospora species NOT DETECTED 08/18 1310 Stool Rotavirus (PCR) NOT DETECTED 08/18 1310 Stool Campylobacter PCR NOT DETECTED 08/18 1310 Stool Giardia Lamblia PCR NOT DETECTED 08/18 1310 Stl Norovirus GI/GII PCR NOT DETECTED 08/18 1310 Serology Adenovirus (PCR) NOT DETECTED 08/18 1310 C. difficile Tox (PCR) NOT DETECTED 08/18 1310 E. coli (PCR) NOT DETECTED 08/18 1310 Yersinia (PCR) NOT DETECTED 12/21 1310 Toxicology Vancomycin Trough (mcg/mL) 20.9 08/19 630 Random Vancomycin (mcg/mL) 27.4 08/18 0645 Urines Urine Color YELLOW 08/13 1520 Urine Appearance CLEAR 08/13 1520 Urine pH 6.5 08/13 152 Ur Specific [place] <= 1.005 08/13 152 Urine Protein (mg/dL) NEGATIVE 08/13 1520 Urine Ketones (mg/dL) NEGATIVE 08/13 1520 Urine Blood NEGATIVE 08/13 1520 Urine Nitrate NEGATIVE 08/13 1520 Urine Bilirubin NEGATIVE 08/13 1520 Urine Urobilinogen (E.U./dL) 0.2 08/13 152 Ur Leukocyte Esterase NEGATIVE 08/13 152 Urine RBC (rbc/hpf) OCC 08/13 1520 Urine WBC (wbc/hpf) 3-5 08/13 152 Ur Squamous Epith Cells (#/hpf) 5-10 08/13 152 Urine Bacteria 1+ 08/13 1520 Hyaline Casts (#/lpf) 3-5 08/13 152 Urine Glucose NEGATIVE 08/13 1520 Assessment findings Assessment Exam General appearance: no acute distress Cardiovascular: regular rate & rhythm Respiratory: no respiratory distress ABD: soft, no tenderness Patient plan Diagnoses: Diverticulitis-status post sigmoid resection Leukocytosis-resolved Abdominal pain-resolved Renal insufficiency Hypokalemia Anemia-no sign of active blood loss... Likely secondary to postoperative state and dilutional effects. Plan: full liquids, replace potassium, 2 units packed red blood cells, PICC line , follow-up labs Antibiotic Stewardship (2) Infxn that will respond? Yes Right drug,dose,and route? Yes More targeted antbx? No at 0844
--- NOTE | 2016-08-19 11:45 | RADIOLOGY REPORT PS360 ---
CHEST PORTABLE-P ICC PLACEMENT COMPARISON: Oral upright chest 07/07/2016 HISTORY: PICC line placement TECHNIQUE: Portable upright chest FINDINGS: The PICC line is seen ascending the right axillary vein and the tip is just beyond the junction of the subclavian vein with superior vena cava. It likely sits 6 to 7 cm above the right atrium. The lung sellers are grossly clear of infiltrate. There is no pneumothorax. There is mild generalized cardio megaly without failure. IMPRESSION: PICC line placement with location as described above
[2016-08-19 12:10] LABS: ABO BLOOD TYPE A; RH BLOOD TYPE POSITIVE
[2016-08-19 12:11] LABS: ANTIHUMAN GLOB CROSSMATCH COMPAT
[2016-08-20] VITALS (14 sets, daily range): BP systolic 103–125; BP diastolic 62–82
[2016-08-20 06:13] LABS: LYMPH % 7.5 % (10-50.0)
[2016-08-20 06:49] LABS: HEMOGLOBIN 16.2 g/dL (12.2-16.2)
--- NOTE | 2016-08-20 07:29 | SURGEON PROGRESS NOTE ---
Subjective data Subjective data: YONATHAN ROMERO is a 61 F .Patient denies complaint of nausea and vomitting.She reports her last pain level as 0 on a 0-10 pain scale. Patient states "I had an awful night." Had severe pain onset in lower mid- abdomen. Required increase in narcotics. Assessment findings Assessment Exam General appearance: alert ABD: soft, tenderness Comment: Hypoactive bowel sounds. Appreciable tenderness in RLQ. Patient plan Plan: IV fluids, CT scan Additional data: CT scan today with oral and rectal contrast. Antibiotic Stewardship (2) Infxn that will respond? Yes Right drug,dose,and route? Yes More targeted antbx? No at 9832
--- NOTE | 2016-08-20 09:08 | ACUTE CARE PROGRESS NOTE (QUA) ---
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 Diverticulitis 2. Renal insufficiency Patient condition Guarded Plan: order additional tests This inpt stay is expected to cross 2 MNs from start of care Yes Comments: pt with sl dec creatine but more pain and pending ct - has edema prob from fluids and transfusion - will dial down fluids at this time Antibiotic Stewardship (2) Current Culture Results Microbiology 08/13 1326 BLOOD: Anaerobic Blood Culture - CAN Cancelled: DUPLICATE 08/13 1326 BLOOD: Aerobic Blood Culture - CAN Cancelled: DUPLICATE Infxn that will respond? Yes Right drug,dose,and route? Yes More targeted antbx? No at 0907
--- NOTE | 2016-08-20 09:08 | ACUTE CARE PROGRESS NOTE (QUA) ---
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 Diverticulitis 2. Renal insufficiency Patient condition Guarded Plan: order additional tests This inpt stay is expected to cross 2 MNs from start of care Yes Comments: pt with sl dec creatine but more pain and pending ct - has edema prob from fluids and transfusion - will dial down fluids at this time Antibiotic Stewardship (2) Current Culture Results Microbiology 08/13 1326 BLOOD: Anaerobic Blood Culture - CAN Cancelled: DUPLICATE 08/13 1326 BLOOD: Aerobic Blood Culture - CAN Cancelled: DUPLICATE Infxn that will respond? Yes Right drug,dose,and route? Yes More targeted antbx? No at 0907
[2016-08-20 12:58] LABS: NEUTROPHILS 83 % (42-76)
--- NOTE | 2016-08-20 15:09 | RADIOLOGY REPORT PS360 ---
CT ABD PELVIS W/O CONTRAST ORDERING PHYSICIAN : RICK ZAYAS MD PATIENT AGE: 61 years GENDER: Female INDICATION: COLON RESECTION 08/04/16, ABDOMEN PAIN TECHNIQUE: Helical CT scanning performed the abdomen and pelvis with oral contrast only. Total of 3 scan sequences through the abdomen first at 1120 the next at 1330 and the final scan at 1345 COMPARISON: Previous CT abdomen pelvis 08/13/2016 scan FINDINGS Marked change since previous study. We now see Prominent free intraperitoneal most evident at the upper abdomen... The free fluid and free air is most evident upper abdomen anterior to the liver. Fluid surrounding the liver and spleen. Fluid also seems to lie posterior to the anterior abdominal wall to the right, above the level of the umbilicus. Just medial to this region I would note there is some stippled air just anterior to the small bowel anastomosis here at midline just superior to level of the umbilicus., ( Axial image [id number])... Reviewing images with Dr. Hood was initial question if there could be some leakage around the prior small bowel anastomosis with these features but no contrast is seen outside of bowel in this region. Thus it was important to have the patient come back with contrast per rectum evaluate integrity of the sigmoid anastomosis. With this fluid posterior to the abdominal wall on recent CXR tracking inferiorly residing anterior to what appears to be a thickened inflamed appearing cecum the right (axial image [id number]]. Dense contrast seen centrally within this thickened cecum. Minimal fluid inferior to the cecum anteriorly. We also see stippled calcifications along the appendix at the right pelvis likely reflecting appendicoliths. . Moderate free fluid fluid interposed between bowel loops and mesentery throughout the abdomen & pelvis. Minimal fluid along the along gutters bilaterally. Small amount of fluid collection posterior right abdomen axial image [id number], just anterior to the right paracolic gutter. Surprisingly minimal fluid at the more dependent pelvis. There is some minimal fluid surrounding some the bowel loops are at midline and to the right at pelvis... (axial image [id number].). The patient also has had a sigmoid anastomosis. Again we see the previous generous fluid collection with air-fluid level extending at the lower pelvis midline and to the left, following the region of the removed sigmoid colon. & Likely just adjacent to the the sigmoid anastomosis. This area surprisingly similar and stable fairly stable. We had the patient return for repeat scanning following contrast per rectum with Dr. Hood present as well it CT. This scan shows contrast throughout the rectum and does demonstrate definite area of leakage from the anterior aspect of the anastomosis sigmoid colon at left lower quadrant. This drains into the previously noted fluid collection at left lower quadrant. We can follow the contrast here posteriorly and seen at there is a tract leading from this area towards the anterior right abdomen on sequence of images. This correlating the different fluid collections. These areas at the mid and lower abdomen all seem to connect to the larger collection overlying the sigmoid anastomosis. Images were reviewed with Dr. Hood. The patient was moved to preop Bibasilar atelectasis and airspace disease with small bilateral pleural effusions also noted on today's studies. note: This study was dictated with a voice-recognition system. There may be typographical error is related to such. If they are significant please notify us for corrections IMPRESSION: Prominent free intraperitoneal air. New since prior study. Free fluid throughout the upper and lower abdomen has also developed since prior exam We performed initial study with only oral contrast, but then subsequent utilized rectal contrast. Contrast per rectum Demonstrates definite leakage from the sigmoid anastomosis which leaks into the previously noted large fluid collection left of midline at the pelvis.. From this area we see thin branches and tracks that appear to feed other small fluid collections fluid described in text-for example communication with the fluid collection behind the abdominal wall right lower quadrant, as well as other areas.. The small bowel anastomosis just above the level of umbilicus is noted. There appears to be slight tapering and possible mild restriction here but no leakage of contrast Images reviewed with Dr. Hood. Patient has been moved the preop area shortly after this final CT scan.
--- NOTE | 2016-08-20 18:24 | Operative Note ---
Surgeon/Diagnoses Surgeon/Pattern Painter(s) Date of procedure: 08/20/16 Surgeon: Allan Hood Pattern Painter(s): Dandy Vera M.D. Diagnoses Pre-op diagnosis: Peritonitis, pneumoperitoneum Post-op diagnosis Colon perforation Procedure Procedure Procedure: Laparotomy, abdominal and pelvic washout for established peritonitis, closure of colotomy, creation of loop ileostomy Indications: YONATHAN ROMERO is a 61 year-old Female with a history of complicated refractory diverticulitis. On 08/04/16 she underwent laparotomy with sigmoid colon resection and primary anastomosis. Patient did well initially. Approximately 9 days postoperatively however she developed some acute onset of pain. She was seen and evaluated in the emergency department. At that point, her exam was rather unimpressive without peritonitis. CT scan revealed mostly postoperative findings with a small amount of fluid in the pelvis. She did, however, have a leukocytosis. She was therefore admitted for inpatient management. Her symptoms improved over the ensuing days and she began feeling well. However, she did have elevation of creatinine. She was hydrated aggressively and her antibiotics altered based on the creatinine elevation. However, in the evening of 08/19/16 she developed acute onset of more significant pain in the RIGHT lower quadrant. She had a return of a mild leukocytosis. Following morning she underwent CT scan with oral contrast followed by rectal contrast. This revealed a significant amount of intraperitoneal fluid and pneumoperitoneum. Rectal contrast CT scan revealed some extravasation of contrast. Plan was made for laparotomy due to these findings and findings of progressive peritonitis Findings: Established feculent peritonitis in the RIGHT lower quadrant and pelvis. There was a small colotomy anterior to the colon anastomotic suture line approximately one centimeter proximal to the suture line. Procedure Description: Consent was obtained and patient was taken emergently to the operating room. She was given preoperative intravenous antibiotics consisting of Invanz. Gen. anesthesia was induced via endotracheal tube. She had Sanchez catheter placed for bladder decompression. Abdomen was prepped and draped in the standard surgical fashion. Low midline laparotomy incision was made in the prior incision line. Dissection was carried down to the fascia. Fascial sutures were incised and the peritoneum was carefully entered. There was an extreme amount of intraperitoneal adhesions. Dissection was carried out using blunt dissection freeing the adhesed small bowel and omentum. Based on the findings on CT scan attention was turned to the LEFT lower quadrant. Dissection was carried down to the colon. There was some feculent material within the pocket and this was suctioned free. This was a sent to the sigmoid colon anastomosis. There was an evident anterior perforation immediately adjacent to and proximal to the suture line measuring several millimeters. This was sutured with several interrupted [id number] 3-0 Vicryl sutures and then oversewn with several 3-0 Surgilon sutures. Decision was made to create a diverting ostomy. There was a huge amount of inflammatory response with thickened bowel and thickened mesentery which was foreshortened. There was difficulty even in initially identifying the terminal ileum. Ultimately the terminal ileum was identified. With difficulty the ileum was freed retrograde dense adhesions to allow for adequate length of loop. In the RIGHT lower quadrant circular incision was made and ileostomy trephine was created using electrocautery making a cruciate incision in the fascia. The ileostomy was somewhat lacking in appropriate length and therefore it was additionally mobilized by dividing the adhesions. Loop was then delivered through the trephine. Peritoneal cavity was then thoroughly irrigated. A 10 mm RADHA drain was placed anterior to the colon suture line and into the pelvis. It was secured to the skin at its exit site in the LEFT lower quadrant with a 3-0 nylon suture. Fascia was of rather attenuated and actually quite thin adjacent to the ileostomy. Therefore the fascia was closed with multiple interrupted #2 Novafil sutures. Wound was thoroughly irrigated. Wound was closed with simple interrupted 2-0 nylon and interrupted 20 vertical mattress nylon creating several gaps to allow for drainage which were then packed with 1 inch plain packing gauze inferiorly. Next attention was turned to maturation of the loop ileostomy. Enterotomy was created. Loop ileostomy was created suturing the small bowel to the surrounding fascia taking an occasional seromuscular "bite" to allow the ileostomy to keep her as much as possible. This was performed circumferentially. Please note that prior to doing this several seromuscular sutures were secured to the fascia deeply to secure the loop of ileum within the trephine. The afferent limb of the loop ileostomy appeared to be somewhat dusky but viable. Colostomy appliance was applied. Dressing was applied. EBL (ml): 20 Anesthesia: GETA Complications: None immediate Disposition Disposition: To PACU at 1824
[2016-08-20 21:36] LABS: URINE BILIRUBIN - DIPSTICK NEGATIVE (NEG); URINE BLOOD 2+ (NEG)
[2016-08-21] VITALS (23 sets, daily range): BP systolic 98–135; BP diastolic 57–78
[2016-08-21 05:33] LABS: LYMPH # 1.5 K/mm3 (0.7-4.5); LYMPH % 9.4 % (10-50.0)
[2016-08-21 05:52] LABS: HEMOGLOBIN 12.5 g/dL (12.2-16.2)
--- NOTE | 2016-08-21 08:16 | POST-OP PROGRESS NOTE ---
Post op subjective data Subjective data: YONATHAN ROMERO is a 61 F . She is status post post op day # . Her wound is healing well without signs symptoms of infection.She reports her last pain level as 0 on a 0-10 pain scale. Patient feels well. Denies pain. Post op objective data Vitals,I&O,and Labs: Vital signs, intake and output,and available lab data for the last 24 hours is as noted below. Vital Signs Date Time Temp Pulse Resp B/P Pulse O2 O2 Flow FiO2 Ox Delivery Rate 08/21 0754 2 08/21 0635 81 122/69 96 OXYGEN 2 08/21 0631 2 08/21 0604 2 08/21 0600 78 114/74 97 OXYGEN 2 08/21 0512 2 08/21 0500 79 121/71 94 OXYGEN 2 08/21 0430 2 08/21 0400 78 110/67 95 OXYGEN 2 08/21 0324 2 08/21 0300 98.3 85 17 103/57 94 OXYGEN 2 08/21 0243 98.0 84 16 106/61 94 2 08/21 0213 2 08/21 0145 98.1 83 15 98/64 94 2 08/21 0110 2 08/21 0045 98.0 83 17 105/70 95 2 08/20 2345 98.2 82 16 103/66 94 2 08/20 2302 2 08/20 224 98.0 88 15 109/67 94 2 08/20 2245 98.0 88 15 109/67 94 OXYGEN 2 08/20 2145 97.5 90 16 117/72 94 2 08/200 2 08/20 2115 97.0 87 15 110/62 94 2 08/20 2058 114 18 114/82 92 08/20 2045 97.2 88 19 115/73 95 2 08/20 2043 98.7 85 26 115/73 95 2 08/20 2041 98.8 08/20 2015 97.5 85 26 112/74 95 2 08/20 2009 18 08/20 1945 97.2 83 19 113/70 94 2 08/20 1930 97.6 89 17 120/78 93 2 08/20 1915 99.0 92 20 118/75 93 2 08/200 97.1 92 28 119/79 93 2 08/200 97.1 92 28 119/79 93 2 12/23 1900 93 2 08/20 1855 98.1 92 14 110/74 95 ROOM AIR 08/20 1850 98.1 94 14 121/72 95 OXYGEN 08/20 1845 98.6 95 14 108/69 94 OXYGEN 08/20 1835 98.8 97 14 102/63 93 OXYGEN 08/20 1825 98.8 97 14 103/57 93 OXYGEN 08/20 1815 98.8 97 14 99/66 89 ROOM AIR 08/20 1805 98.8 98 12 104/69 90 ROOM AIR 08/20 0910 97.9 114 18 114/82 92 08/21 0700 08/20 2300 08/20 1500 Intake Total 656 100 Output Total 235 605 Balance 421 -505 Intake, IV 656 100 Intake, Oral 0 Intake, Tube 0 Irrigant Output, 110 0 Emesis Output, 0 Estimated Blood Loss Output, Other 55 Output, Urine 125 550 Patient 223 lb Weight Laboratory Tests Test Result Date Time Chemistry Sodium (mmoL/L) 142 08/21 0450 Potassium (mmoL/L) 4.0 08/21 0450 Chloride (mmoL/L) 108 08/21 0450 Carbon Dioxide (mmoL/L) 23 08/21 0450 BUN (mg/dL) 21 08/21 0450 Creatinine (mg/dL) 3.3 08/21 0450 Estimated Creat Clear (ML/MIN) 28 08/21 0450 Estimated GFR (MDRD) (ML/MIN) 14 08/21 0450 Glucose (mg/dL) 117 08/21 0450 POC Glucose (mg/dl) 153 08/14 1437 Lactic Acid (MMOL/L) 4.8 08/13 1750 Calcium (mg/dL) 6.8 08/21 0450 Total Bilirubin (mg/dL) 0.3 08/13 1250 AST (U/L) 18 08/13 1250 ALT (U/L) 20 08/13 1250 Alkaline Phosphatase (U/L) 65 08/13 1250 Total Protein (gm/dL) 6.2 08/13 1250 Albumin (gm/dL) 3.2 08/13 1250 Globulin (gm/dL) 3.0 08/13 1250 Albumin/Globulin Ratio 1.1 08/13 1250 Hematology WBC (K/MM3) 16.4 08/21 0450 RBC (M/mm3) 4.45 08/21 450 Hgb (g/dL) 12.5 08/21 450 Hct (%) 37.9 08/21 450 MCV (fl) 85.1 08/21 450 RDW (%) 17.0 08/21 450 Plt Count (K/mm3) 459 08/21 450 MPV (fl) 9.1 08/21 450 Gran % (%) 85.7 08/21 450 Gran # (K/mm3) 14.1 08/21 450 Total Counted (#CELLS) 100 08/20 06 Lymphocytes % (%) 9.4 08/21 450 Monocytes % (%) 4.3 08/210 Eosinophils % (%) 0.2 08/21 450 Basophils % (%) 0.4 08/21 450 Neutrophils (%) 83 08/20 06 Band Neutrophils (%) 7 08/15 0630 Lymphocytes (Manual) (%) 13 08/20 06 Lymphocytes # (K/mm3) 1.5 08/21 0450 Monocytes (Manual) (%) 4 08/20 06 Monocytes # (K/mm3) 0.7 08/210 Eosinophils # (K/mm3) 0.0 08/21 450 Eosinophils # (Manual) (%) 1 08/15 0630 Basophils # (K/MM3) 0.1 08/21 450 Platelet Estimate SLIGHT INCREASE 08/20 600 Polychromasia SL. 08/15 0630 Hypochromasia 2+ 08/13 1250 Poikilocytosis SL. 08/15 0630 Macrocytosis 1+ 08/13 1250 PUBS MCHC (g/dl) 32.9 08/21 450 Immunology Antibody Screen NEGATIVE 08/19 08 MCH (pg) 28.0 08/21 450 Miscellaneous Miscellaneous Test POSITIVE 08/19 0820 Misc Test Units BLOOD UNIT RELEASE 08/19 2030 Other Body Source Stl Cyclospora species NOT DETECTED 08/18 1310 Stool Rotavirus (PCR) NOT DETECTED 08/18 1310 Stool Campylobacter PCR NOT DETECTED 08/18 131 Stool Giardia Lamblia PCR NOT DETECTED 08/18 1310 Stl Norovirus GI/GII PCR NOT DETECTED 08/18 1310 Serology Adenovirus (PCR) NOT DETECTED 08/18 1310 C. difficile Tox (PCR) NOT DETECTED 12/21 1310 E. coli (PCR) NOT DETECTED 08/180 Yersinia (PCR) NOT DETECTED 08/18 131 Toxicology Vancomycin Trough (mcg/mL) 20.9 08/19 0630 Random Vancomycin (mcg/mL) 27.4 08/18 0645 Urines Urine Color YELLOW 08/20 143 Urine Appearance CLEAR 08/20 1435 Urine pH 5.5 08/20 143 Ur Specific [place] 1.020 08/20 143 Urine Protein (mg/dL) NEGATIVE 08/20 143 Urine Ketones (mg/dL) NEGATIVE 08/20 1435 Urine Blood 2+ 08/20 1435 Urine Nitrate NEGATIVE 08/20 1435 Urine Bilirubin NEGATIVE 08/20 1435 Urine Urobilinogen (E.U./dL) 0.2 08/20 1435 Ur Leukocyte Esterase NEGATIVE 08/20 143 Urine RBC (rbc/hpf) OCC 08/13 1520 Urine WBC (wbc/hpf) OCC 08/20 143 Ur Squamous Epith Cells (#/hpf) 3-5 08/20 1435 Urine Bacteria TRACE 08/20 143 Hyaline Casts (#/lpf) 3-5 08/13 1520 Urine Mucus 3+ 08/20 1435 Urine Glucose NEGATIVE 08/20 1435 Post op assessment findings Assessment Exam General appearance: normal appearance ABD: soft Comment: Abdomen is soft. Wound is clean. Ileostomy is viable and showing some output. Post op patient plan Plan: Antibiotics, IV fluids This inpt stay is expected to cross 2 MNs from start of care Yes Antibiotic Stewardship (2) Infxn that will respond? Yes Right drug,dose,and route? Yes More targeted antbx? No at 0816
--- NOTE | 2016-08-21 10:53 | ACUTE CARE PROGRESS NOTE (QUA) ---
Progress Notes Subjective Date 08/21/16 Time 1050 Note looks better Patient/family reports: feeling better Nursing reports: no complaints Objective Findings Last VS-Temp:98.0 B/P:124/72 Pulse:77 Resp:20 SaO2:97 OXYGEN Last weight lbs:223 oz:7 K.35 Method:Bed Scales Exam General appearance: alert Eyes: PERRLA ENT: dry mucous membranes Neck: no JVD Cardiovascular: regular rate & rhythm Respiratory: no respiratory distress ABD: ileostomy Genitourinary: no hematuria Extremities: no calf tenderness, edema Musculoskeletal: equal muscle strength Skin: dry Neuro: alert, burrer hand II-XII nml as tested Reviewed: allergies, medications, vital signs, lab results Assessment/Plan Problem List 1. Diverticulitis 2. Renal insufficiency Patient condition Improving Plan: order additional tests This inpt stay is expected to cross 2 MNs from start of care Yes Comments: will continue to follow cr at this time Antibiotic Stewardship (2) Infxn that will respond? Yes Right drug,dose,and route? Yes More targeted antbx? No at 1052
--- NOTE | 2016-08-21 10:53 | ACUTE CARE PROGRESS NOTE (QUA) ---
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 Diverticulitis 2. Renal insufficiency Patient condition Improving Plan: order additional tests This inpt stay is expected to cross 2 MNs from start of care Yes Comments: will continue to follow cr at this time Antibiotic Stewardship (2) Infxn that will respond? Yes Right drug,dose,and route? Yes More targeted antbx? No at 1052
[2016-08-22] VITALS (22 sets, daily range): BP systolic 111–146; BP diastolic 62–82
[2016-08-22 05:33] LABS: LYMPH # 1.2 K/mm3 (0.7-4.5); LYMPH % 8.1 % (10-50.0)
[2016-08-22 05:37] LABS: HEMOGLOBIN 10.6 g/dL (12.2-16.2)
--- NOTE | 2016-08-22 09:20 | POST-OP PROGRESS NOTE ---
Post Op Subjective Data Patient is post-op day 2 Subjective data: Feels "pretty okay". Pain control is "fine". Post op objective data Vitals,I&O,and Labs: Vital signs, intake and output,and available lab data for the last 24 hours is as noted below. Vital Signs Date Time Temp Pulse Resp B/P Pulse O2 O2 Flow FiO2 Ox Delivery Rate 08/22 0820 2 08/22 0700 88 14 118/71 99 2 08/22 0657 2 08/22 0551 98.2 91 14 125/69 96 2 08/22 0500 2 08/22 0500 98.2 91 14 125/69 96 2 08/22 0300 92 13 111/65 96 2 08/22 0257 2 08/22 0200 2 08/22 0108 98.6 90 13 116/62 96 2 08/22 0100 2 08/22 0058 17 08/21 2339 2 08/21 2300 2 08/21 2300 94 129/75 97 2 08/21 2203 2 08/21 2100 2 08/21 2100 91 135/73 97 2 08/21 2100 98.0 94 17 129/77 96 2 08/21 1957 2 08/21 1914 87 20 132/69 98 2 08/21 1853 2 08/21 1813 2 08/21 1800 85 20 129/74 95 OXYGEN 2 08/21 1711 2 08/21 1700 83 20 124/68 98 OXYGEN 2 08/21 1638 97.9 08/21 1634 2 08/21 1600 82 19 129/73 100 OXYGEN 2 08/21 1525 2 08/21 1525 97.8 78 22 129/75 95 2 08/21 1500 80 20 130/71 98 OXYGEN 2 08/21 1400 2 08/21 1400 82 20 129/71 96 OXYGEN 2 08/21 1310 2 08/21 1300 77 20 119/76 97 OXYGEN 2 08/21 1200 79 20 127/76 95 OXYGEN 2 08/21 1153 2 08/21 1131 2 08/21 1100 82 20 126/78 95 OXYGEN 2 08/21 1043 2 08/21 1000 82 22 127/76 95 OXYGEN 2 08/21 1500 08/21 2300 08/22 0700 Intake Total 1163 1043 Output Total 310 640 Balance 853 403 Intake, IV 1163 1043 Output, Other 110 310 Output, Stool Output, Urine 200 330 Patient 101.605 kg Weight Laboratory Tests Test Result Date Time Chemistry Sodium (mmoL/L) 144 08/22 515 Potassium (mmoL/L) 3.6 08/22 515 Chloride (mmoL/L) 110 08/22 05 Carbon Dioxide (mmoL/L) 23 08/22 515 BUN (mg/dL) 25 08/22 05 Creatinine (mg/dL) 2.9 08/22 515 Estimated Creat Clear (ML/MIN) 32 08/22 515 Estimated GFR (MDRD) (ML/MIN) 16 08/22 515 Glucose (mg/dL) 75 08/22 515 POC Glucose (mg/dl) 153 08/14 1437 Lactic Acid (MMOL/L) 4.8 08/13 1750 Calcium (mg/dL) 6.2 08/22 515 Total Bilirubin (mg/dL) 0.3 08/13 1250 AST (U/L) 18 08/13 1250 ALT (U/L) 20 08/13 1250 Alkaline Phosphatase (U/L) 65 08/13 1250 Total Protein (gm/dL) 6.2 08/13 1250 Albumin (gm/dL) 3.2 08/13 1250 Globulin (gm/dL) 3.0 08/13 1250 Albumin/Globulin Ratio 1.1 08/13 1250 Hematology WBC (K/MM3) 14.4 08/22 515 RBC (M/mm3) 3.79 08/22 515 Hgb (g/dL) 10.6 08/22 515 Hct (%) 32.1 08/22 515 MCV (fl) 84.7 08/22 515 RDW (%) 16.6 08/22 515 Plt Count (K/mm3) 403 08/22 515 MPV (fl) 9.1 08/22 515 Gran % (%) 82.3 08/22 515 Gran # (K/mm3) 11.9 08/22 515 Total Counted (#CELLS) 100 08/20 06 Lymphocytes % (%) 8.1 08/22 515 Monocytes % (%) 3.2 08/22 515 Eosinophils % (%) 6.2 08/22 515 Basophils % (%) 0.2 08/22 515 Neutrophils (%) 83 08/20 0600 Band Neutrophils (%) 7 08/15 0630 Lymphocytes (Manual) (%) 13 08/20 0600 Lymphocytes # (K/mm3) 1.2 08/22 0515 Monocytes (Manual) (%) 4 08/20 0600 Monocytes # (K/mm3) 0.5 08/22 05 Eosinophils # (K/mm3) 0.9 08/22 05 Eosinophils # (Manual) (%) 1 08/15 0630 Basophils # (K/MM3) 0.0 08/22 515 Platelet Estimate SLIGHT INCREASE 08/20 0600 Polychromasia SL. 08/15 0630 Hypochromasia 2+ 08/13 1250 Poikilocytosis SL. 08/15 0630 Macrocytosis 1+ 08/13 1250 PUBS MCHC (g/dl) 32.9 08/22 515 Immunology Antibody Screen NEGATIVE 08/19 08 MCH (pg) 27.8 08/22 05 Miscellaneous Miscellaneous Test POSITIVE 08/19 0820 Misc Test Units BLOOD UNIT RELEASE 08/19 2030 Other Body Source Stl Cyclospora species NOT DETECTED 08/18 1310 Stool Rotavirus (PCR) NOT DETECTED 08/18 1310 Stool Campylobacter PCR NOT DETECTED 08/18 131 Stool Giardia Lamblia PCR NOT DETECTED 08/18 1310 Stl Norovirus GI/GII PCR NOT DETECTED 08/18 1310 Serology Adenovirus (PCR) NOT DETECTED 08/18 1310 C. difficile Tox (PCR) NOT DETECTED 08/18 1310 E. coli (PCR) NOT DETECTED 08/18 1310 Yersinia (PCR) NOT DETECTED 08/18 1310 Toxicology Vancomycin Trough (mcg/mL) 20.9 08/19 06 Random Vancomycin (mcg/mL) 27.4 08/18 0645 Urines Urine Color YELLOW 08/20 143 Urine Appearance CLEAR 08/20 143 Urine pH 5.5 08/20 143 Ur Specific [place] 1.020 08/20 143 Urine Protein (mg/dL) NEGATIVE 08/20 143 Urine Ketones (mg/dL) NEGATIVE 08/20 1435 Urine Blood 2+ 08/20 143 Urine Nitrate NEGATIVE 08/20 143 Urine Bilirubin NEGATIVE 08/20 143 Urine Urobilinogen (E.U./dL) 0.2 08/20 143 Ur Leukocyte Esterase NEGATIVE 08/20 143 Urine RBC (rbc/hpf) OCC 08/13 1520 Urine WBC (wbc/hpf) OCC 08/20 1435 Ur Squamous Epith Cells (#/hpf) 3-5 08/20 1435 Urine Bacteria TRACE 08/20 1435 Hyaline Casts (#/lpf) 3-5 08/13 1520 Urine Mucus 3+ 08/20 1435 Urine Glucose NEGATIVE 08/20 1435 Physical Exam VS/I&O Vital Signs Date Time Temp Pulse Resp B/P Pulse O2 O2 Flow FiO2 Ox Delivery Rate 08/22 0820 2 08/22 0700 88 14 118/71 99 2 08/22 0657 2 08/22 0551 98.2 91 14 125/69 96 2 08/22 0500 2 08/22 0500 98.2 91 14 125/69 96 2 08/22 0300 92 13 111/65 96 2 08/22 0257 2 08/22 0200 2 08/22 0108 98.6 90 13 116/62 96 2 08/22 0100 2 08/22 0058 17 08/21 2339 2 08/21 2300 2 08/21 2300 94 129/75 97 2 08/21 2203 2 08/21 2100 2 08/21 2100 91 135/73 97 2 08/21 2100 98.0 94 17 129/77 96 2 08/21 1957 2 08/21 1914 87 20 132/69 98 2 08/21 1853 2 08/21 1813 2 08/21 1800 85 20 129/74 95 OXYGEN 2 08/21 1711 2 08/21 1700 83 20 124/68 98 OXYGEN 2 08/21 1638 97.9 08/21 1634 2 08/21 1600 82 19 129/73 100 OXYGEN 2 08/21 1525 2 08/21 1525 97.8 78 22 129/75 95 2 08/21 1500 80 20 130/71 98 OXYGEN 2 08/21 1400 2 08/21 1400 82 20 129/71 96 OXYGEN 2 08/21 1310 2 08/21 1300 77 20 119/76 97 OXYGEN 2 08/21 1200 79 20 127/76 95 OXYGEN 2 08/21 1153 2 08/21 1131 2 08/21 1100 82 20 126/78 95 OXYGEN 2 08/21 1043 2 08/21 1000 82 22 127/76 95 OXYGEN 2 I&O 08/22 0700 Intake Total 2206 Output Total 950 Balance 1256 Intake, IV 2206 Output, Other 420 Output, Stool Output, Urine 530 Patient 101.605 kg Weight Exam General appearance no acute distress, alert Respiratory no distress Cardiovascular regular rate and rhythm Abdomen soft ( (see below)) Findings/Data Evaluation of the abdomen refills fluid within the ileostomy bag. The ostomy is pink and viable. Midline wound base and margin are clean with no sign of active infection. Post op patient plan Diagnoses: 1) Postoperative leak versus immediate acute recurrent perforated diverticulitis status post sigmoid resection (area of leak versus perforation noted to be just proximal to anastomosis) --- overall, doing well status post operative repair and diverting loop ileostomy. 2) renal insufficiency-slowly improving Plan: Ambulate, Antibiotics, DVT prophylaxis, ambulate, NG to drain bag, wean oxygen This inpt stay is expected to cross 2 MNs from start of care Yes Additional data: The patient's Sanchez catheter will remain in place for now secondary to recent history of severe bladder spasm and postoperative urinary retention. Antibiotic Stewardship (2) Infxn that will respond? Yes Right drug,dose,and route? Yes More targeted antbx? No at [id number]
--- NOTE | 2016-08-22 21:48 | ACUTE CARE PROGRESS NOTE (QUA) ---
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 Diverticulitis 2. Renal insufficiency Patient condition Improving Plan: continue current care This inpt stay is expected to cross 2 MNs from start of care Yes Comments: doing better Antibiotic Stewardship (2) Infxn that will respond? Yes Right drug,dose,and route? Yes More targeted antbx? No at [id number]
--- NOTE | 2016-08-22 21:48 | ACUTE CARE PROGRESS NOTE (QUA) ---
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 Diverticulitis 2. Renal insufficiency Patient condition Improving Plan: continue current care This inpt stay is expected to cross 2 MNs from start of care Yes Comments: doing better Antibiotic Stewardship (2) Infxn that will respond? Yes Right drug,dose,and route? Yes More targeted antbx? No at [id number]
[2016-08-23] VITALS (24 sets, daily range): BP systolic 114–149; BP diastolic 62–78
[2016-08-23 06:45] LABS: LYMPH # 0.9 K/mm3 (0.7-4.5)
[2016-08-23 06:52] LABS: HEMOGLOBIN 9.2 g/dL (12.2-16.2)
--- NOTE | 2016-08-23 07:24 | POST-OP PROGRESS NOTE ---
Post Op Subjective Data Patient is post-op day 3 Subjective data: Feels "fine". NG to drain without n/v. Post op objective data Vitals,I&O,and Labs: Vital signs, intake and output,and available lab data for the last 24 hours is as noted below. Vital Signs Date Time Temp Pulse Resp B/P Pulse O2 O2 Flow FiO2 Ox Delivery Rate 08/23 0645 2 08/23 0600 80 127/69 99 OXYGEN 2 08/23 0525 2 08/23 0500 81 114/69 98 OXYGEN 2 08/23 0400 98.0 83 20 128/72 99 2 08/23 0400 83 128/72 99 OXYGEN 2 08/23 0305 2 08/23 0300 81 136/72 95 OXYGEN 2 08/23 0200 86 116/75 94 ROOM AIR 08/23 0100 84 130/65 97 ROOM AIR 08/23 0000 85 131/70 96 ROOM AIR 08/22 2300 85 135/67 96 ROOM AIR 08/22 2200 86 138/75 96 ROOM AIR 08/22 2100 87 129/66 96 ROOM AIR 08/22 2005 98.3 88 23 125/72 96 08/22 1800 88 16 146/82 95 ROOM AIR 08/22 1724 94 2 08/22 1700 83 18 133/74 94 ROOM AIR 08/22 1612 97.6 85 16 137/79 94 08/22 1604 2 08/22 1600 98.1 83 16 123/65 94 ROOM AIR 08/22 1506 2 08/22 1500 85 16 137/79 94 ROOM AIR 08/22 1425 2 08/22 1400 86 16 135/80 94 ROOM AIR 08/22 1330 2 08/22 1300 80 18 121/62 99 OXYGEN 08/22 1214 2 08/22 1200 97.6 80 16 124/74 97 08/22 1110 2 08/22 1100 81 16 126/73 97 ROOM AIR 08/22 1009 2 08/22 1000 87 16 128/72 98 ROOM AIR 08/22 0920 2 08/22 0920 98.2 88 14 118/71 99 2 08/22 0900 90 16 127/70 98 ROOM AIR 08/22 0900 99 08/22 0820 2 08/22 0800 98.0 92 16 123/71 99 OXYGEN 1 08/22 1500 08/22 2300 08/23 0700 Intake Total 30 1185 1175 Output Total 25 665 640 Balance 5 520 535 Intake, IV 1165 1175 Intake, Tube 30 20 Irrigant Output, 140 90 Emesis Output, Other 25 25 Output, Stool Output, Urine 500 550 Patient 104.865 kg Weight Laboratory Tests Test Result Date Time Chemistry Sodium (mmoL/L) 144 08/22 0515 Potassium (mmoL/L) 3.6 08/22 05 Chloride (mmoL/L) 110 08/22 0515 Carbon Dioxide (mmoL/L) 23 08/22 0515 BUN (mg/dL) 25 08/22 0515 Creatinine (mg/dL) 2.9 08/22 05 Estimated Creat Clear (ML/MIN) 32 08/22 0515 Estimated GFR (MDRD) (ML/MIN) 16 08/22 0515 Glucose (mg/dL) 75 08/22 0515 POC Glucose (mg/dl) 153 08/14 1437 Lactic Acid (MMOL/L) 4.8 08/13 1750 Calcium (mg/dL) 6.2 08/22 05 Total Bilirubin (mg/dL) 0.3 08/13 1250 AST (U/L) 18 08/13 1250 ALT (U/L) 20 08/13 1250 Alkaline Phosphatase (U/L) 65 08/13 1250 Total Protein (gm/dL) 6.2 08/13 1250 Albumin (gm/dL) 3.2 08/13 1250 Globulin (gm/dL) 3.0 08/13 1250 Albumin/Globulin Ratio 1.1 08/13 1250 Hematology WBC (K/MM3) 9.7 08/23 618 RBC (M/mm3) 3.30 08/23 618 Hgb (g/dL) 9.2 08/23 618 Hct (%) 27.6 08/23 618 MCV (fl) 84.8 08/23 618 RDW (%) 16.3 08/23 618 Plt Count (K/mm3) 393 08/23 618 MPV (fl) 9.1 08/23 618 Gran % (%) 77.4 08/23 618 Gran # (K/mm3) 7.6 08/23 618 Total Counted (#CELLS) 100 08/20 0600 Lymphocytes % (%) 9.0 08/23 618 Monocytes % (%) 3.8 12/26 0618 Eosinophils % (%) 9.6 08/23 618 Basophils % (%) 0.2 08/23 618 Neutrophils (%) 83 08/20 06 Band Neutrophils (%) 7 08/15 630 Lymphocytes (Manual) (%) 13 08/20 06 Lymphocytes # (K/mm3) 0.9 08/23 618 Monocytes (Manual) (%) 4 08/20 06 Monocytes # (K/mm3) 0.4 08/23 618 Eosinophils # (K/mm3) 0.9 08/23 618 Eosinophils # (Manual) (%) 1 08/15 630 Basophils # (K/MM3) 0.0 08/23 618 Platelet Estimate SLIGHT INCREASE 08/20 600 Polychromasia SL. 08/15 630 Hypochromasia 2+ 08/13 1250 Poikilocytosis SL. 08/15 630 Macrocytosis 1+ 08/13 1250 PUBS MCHC (g/dl) 32.8 08/23 618 Immunology Antibody Screen NEGATIVE 08/19 820 MCH (pg) 27.8 08/23 618 Miscellaneous Miscellaneous Test POSITIVE 08/19 0820 Misc Test Units BLOOD UNIT RELEASE 08/19 2030 Other Body Source Stl Cyclospora species NOT DETECTED 08/18 1310 Stool Rotavirus (PCR) NOT DETECTED 08/18 1310 Stool Campylobacter PCR NOT DETECTED 08/18 1310 Stool Giardia Lamblia PCR NOT DETECTED 08/18 131 Stl Norovirus GI/GII PCR NOT DETECTED 08/18 1310 Serology Adenovirus (PCR) NOT DETECTED 08/18 1310 C. difficile Tox (PCR) NOT DETECTED 08/18 1310 E. coli (PCR) NOT DETECTED 08/18 1310 Yersinia (PCR) NOT DETECTED 08/18 1310 Toxicology Vancomycin Trough (mcg/mL) 20.9 08/19 630 Random Vancomycin (mcg/mL) 27.4 08/18 0645 Urines Urine Color YELLOW 08/20 1435 Urine Appearance CLEAR 08/20 1435 Urine pH 5.5 08/20 1435 Ur Specific [place] 1.020 08/20 143 Urine Protein (mg/dL) NEGATIVE 08/20 1435 Urine Ketones (mg/dL) NEGATIVE 08/20 1435 Urine Blood 2+ 08/20 1435 Urine Nitrate NEGATIVE 08/20 1435 Urine Bilirubin NEGATIVE 12/23 1435 Urine Urobilinogen (E.U./dL) 0.2 08/20 1435 Ur Leukocyte Esterase NEGATIVE 08/20 1435 Urine RBC (rbc/hpf) OCC 08/13 1520 Urine WBC (wbc/hpf) OCC 08/20 1435 Ur Squamous Epith Cells (#/hpf) 3-5 08/20 1435 Urine Bacteria TRACE 08/20 1435 Hyaline Casts (#/lpf) 3-5 08/13 1520 Urine Mucus 3+ 08/20 1435 Urine Glucose NEGATIVE 08/20 1435 Physical Exam VS/I&O Vital Signs Date Time Temp Pulse Resp B/P Pulse O2 O2 Flow FiO2 Ox Delivery Rate 08/23 0645 2 08/23 0600 80 127/69 99 OXYGEN 2 08/23 0525 2 08/23 0500 81 114/69 98 OXYGEN 2 08/23 0400 98.0 83 20 128/72 99 2 08/23 0400 83 128/72 99 OXYGEN 2 08/23 0305 2 08/23 0300 81 136/72 95 OXYGEN 2 08/23 0200 86 116/75 94 ROOM AIR 08/23 0100 84 130/65 97 ROOM AIR 08/23 0000 85 131/70 96 ROOM AIR 08/22 2300 85 135/67 96 ROOM AIR 08/22 2200 86 138/75 96 ROOM AIR 08/22 2100 87 129/66 96 ROOM AIR 08/22 2005 98.3 88 23 125/72 96 08/22 1800 88 16 146/82 95 ROOM AIR 08/22 1724 94 2 08/22 1700 83 18 133/74 94 ROOM AIR 08/22 1612 97.6 85 16 137/79 94 08/22 1604 2 08/22 1600 98.1 83 16 123/65 94 ROOM AIR 08/22 1506 2 08/22 1500 85 16 137/79 94 ROOM AIR 08/22 1425 2 08/22 1400 86 16 135/80 94 ROOM AIR 08/22 1330 2 08/22 1300 80 18 121/62 99 OXYGEN 08/22 1214 2 08/22 1200 97.6 80 16 124/74 97 08/22 1110 2 08/22 1100 81 16 126/73 97 ROOM AIR 08/22 1009 2 08/22 1000 87 16 128/72 98 ROOM AIR 08/22 0920 2 08/22 0920 98.2 88 14 118/71 99 2 08/22 0900 90 16 127/70 98 ROOM AIR 08/22 0900 99 08/22 0820 2 08/22 0800 98.0 92 16 123/71 99 OXYGEN 1 I&O 08/23 0700 Intake Total 2390 Output Total 1330 Balance 1060 Intake, IV 2340 Intake, Tube 50 Irrigant Output, 230 Emesis Output, Other 50 Output, Stool Output, Urine 1050 Patient 104.865 kg Weight Exam General appearance no acute distress Respiratory no distress Cardiovascular regular rate and rhythm Abdomen soft (no cellulitis) Post op patient plan Diagnoses: 1) post-op leak vs. immediate recurrence to diverticulitis - stable s/p loop ileostomy 2) renal insufficiency Plan: Ambulate, Antibiotics, DVT prophylaxis, IV fluids, dc NG This inpt stay is expected to cross 2 MNs from start of care Yes Antibiotic Stewardship (2) Infxn that will respond? Yes Right drug,dose,and route? Yes More targeted antbx? No at [id number]
[2016-08-24] VITALS (20 sets, daily range): BP systolic 112–145; BP diastolic 59–94
[2016-08-24 05:51] LABS: LYMPH # 0.9 K/mm3 (0.7-4.5); LYMPH % 11.1 % (10-50.0)
--- NOTE | 2016-08-24 06:53 | POST-OP PROGRESS NOTE ---
Post Op Subjective Data Patient is post-op day 4 Subjective data: Feels "pretty good". A large amount of air in her ostomy bag created leakage overnight. Post op objective data Vitals,I&O,and Labs: Vital signs, intake and output,and available lab data for the last 24 hours is as noted below. Vital Signs Date Time Temp Pulse Resp B/P Pulse O2 O2 Flow FiO2 Ox Delivery Rate 08/24 0638 2 08/24 0600 2 08/24 0600 73 123/59 97 OXYGEN 2 08/24 0527 2 08/24 0500 86 131/68 98 OXYGEN 2 08/24 0429 2 08/24 0400 98.3 75 19 112/63 98 2 08/24 0316 2 08/24 0300 74 122/63 98 OXYGEN 2 08/24 0200 74 121/61 99 OXYGEN 2 08/24 0100 78 133/70 100 OXYGEN 2 08/24 0000 71 126/68 98 OXYGEN 08/23 2300 74 133/71 94 OXYGEN 2 08/23 2230 77 ROOM AIR 08/23 2200 76 133/62 96 OXYGEN 2 08/23 2100 76 128/68 97 OXYGEN 2 08/23 2000 97.8 81 20 149/78 93 2 08/23 1956 2 08/23 1956 2 08/23 1956 93 OXYGEN 2 08/23 1915 2 08/23 1900 71 140/73 100 OXYGEN 2 08/23 1827 2 08/23 1800 75 20 136/71 99 OXYGEN 2 08/23 1757 20 08/23 1734 2 08/23 1700 72 20 129/63 98 OXYGEN 2 08/23 1619 2 08/23 1600 74 20 137/72 98 OXYGEN 2 08/23 1520 2 08/23 1520 98.1 76 20 140/74 95 2 08/23 1500 74 20 140/74 99 OXYGEN 2 08/23 1405 2 08/23 1400 74 20 136/71 97 OXYGEN 2 08/23 1311 2 08/23 1228 2 08/23 1200 73 20 140/65 95 OXYGEN 2 08/23 1103 2 08/23 1100 76 22 133/73 92 ROOM AIR 08/23 1000 75 20 138/71 93 ROOM AIR 08/23 0905 98.6 77 22 126/77 95 08/23 0900 77 20 126/77 96 ROOM AIR 08/23 0803 98.6 08/23 0800 98.6 77 20 133/71 92 ROOM AIR 1 08/23 1500 08/23 2300 08/24 0700 Intake Total 600 705 Output Total 1050 920 Balance -450 -215 Intake, IV 705 Intake, Oral 600 Output, 50 Emesis Output, Other 20 Output, Stool Output, Urine 1000 900 Patient 103.901 kg Weight Laboratory Tests Test Result Date Time Chemistry Sodium (mmoL/L) 142 08/24 0525 Potassium (mmoL/L) 3.0 08/24 0525 Chloride (mmoL/L) 109 08/24 0525 Carbon Dioxide (mmoL/L) 24 08/24 0525 BUN (mg/dL) 23 08/24 0525 Creatinine (mg/dL) 2.3 08/24 0525 Estimated Creat Clear (ML/MIN) 42 08/24 0525 Estimated GFR (MDRD) (ML/MIN) 21 08/24 0525 Glucose (mg/dL) 92 08/24 0525 POC Glucose (mg/dl) 92 08/23 2351 Lactic Acid (MMOL/L) 4.8 08/13 1750 Calcium (mg/dL) 6.7 08/24 0525 Total Bilirubin (mg/dL) 0.3 08/13 1250 AST (U/L) 18 08/13 1250 ALT (U/L) 20 08/13 1250 Alkaline Phosphatase (U/L) 65 08/13 1250 Total Protein (gm/dL) 6.2 08/13 1250 Albumin (gm/dL) 3.2 08/13 1250 Globulin (gm/dL) 3.0 08/13 1250 Albumin/Globulin Ratio 1.1 08/13 1250 Hematology WBC (K/MM3) 8.4 08/24 0525 RBC (M/mm3) 3.22 08/24 0525 Hgb (g/dL) 9.0 08/24 05 Hct (%) 27.1 08/24 05 MCV (fl) 84.3 08/24 05 RDW (%) 16.0 08/24 05 Plt Count (K/mm3) 389 08/24 05 MPV (fl) 8.7 08/24 05 Gran % (%) 72.4 08/24 05 Gran # (K/mm3) 6.1 08/24 05 Total Counted (#CELLS) 100 08/20 0600 Lymphocytes % (%) 11.1 08/24 0525 Monocytes % (%) 5.1 08/24 0525 Eosinophils % (%) 11.0 08/24 0525 Basophils % (%) 0.4 08/24 0525 Neutrophils (%) 83 08/20 0600 Band Neutrophils (%) 7 08/15 0630 Lymphocytes (Manual) (%) 13 08/20 0600 Lymphocytes # (K/mm3) 0.9 08/24 0525 Monocytes (Manual) (%) 4 08/20 0600 Monocytes # (K/mm3) 0.4 08/24 0525 Eosinophils # (K/mm3) 0.9 08/24 0525 Eosinophils # (Manual) (%) 1 08/15 0630 Basophils # (K/MM3) 0.0 08/24 0525 Platelet Estimate SLIGHT INCREASE 08/20 06 Polychromasia SL. 08/15 0630 Hypochromasia 2+ 08/13 1250 Poikilocytosis SL. 08/15 0630 Macrocytosis 1+ 08/13 1250 PUBS MCHC (g/dl) 33.1 08/24 0525 Immunology Antibody Screen NEGATIVE 08/19 0820 MCH (pg) 27.9 08/24 0525 Miscellaneous Miscellaneous Test POSITIVE 08/19 0820 Misc Test Units BLOOD UNIT RELEASE 08/19 2030 Other Body Source Stl Cyclospora species NOT DETECTED 08/18 1310 Stool Rotavirus (PCR) NOT DETECTED 08/18 131 Stool Campylobacter PCR NOT DETECTED 08/18 131 Stool Giardia Lamblia PCR NOT DETECTED 08/18 1310 Stl Norovirus GI/GII PCR NOT DETECTED 08/18 1310 Serology Adenovirus (PCR) NOT DETECTED 08/18 1310 C. difficile Tox (PCR) NOT DETECTED 08/18 1310 E. coli (PCR) NOT DETECTED 08/18 1310 Yersinia (PCR) NOT DETECTED 08/18 1310 Toxicology Vancomycin Trough (mcg/mL) 20.9 08/19 06 Random Vancomycin (mcg/mL) 27.4 08/18 0645 Urines Urine Color YELLOW 08/20 143 Urine Appearance CLEAR 08/20 1435 Urine pH 5.5 08/20 143 Ur Specific [place] 1.020 08/20 143 Urine Protein (mg/dL) NEGATIVE 08/20 143 Urine Ketones (mg/dL) NEGATIVE 12/23 1435 Urine Blood 2+ 08/20 1435 Urine Nitrate NEGATIVE 08/20 143 Urine Bilirubin NEGATIVE 08/20 143 Urine Urobilinogen (E.U./dL) 0.2 08/20 1435 Ur Leukocyte Esterase NEGATIVE 08/20 1435 Urine RBC (rbc/hpf) OCC 08/13 1520 Urine WBC (wbc/hpf) OCC 08/20 1435 Ur Squamous Epith Cells (#/hpf) 3-5 08/20 1435 Urine Bacteria TRACE 08/20 1435 Hyaline Casts (#/lpf) 3-5 08/13 1520 Urine Mucus 3+ 08/20 1435 Urine Glucose NEGATIVE 08/20 1435 Physical Exam VS/I&O Vital Signs Date Time Temp Pulse Resp B/P Pulse O2 O2 Flow FiO2 Ox Delivery Rate 08/24 0638 2 08/24 0600 2 08/24 0600 73 123/59 97 OXYGEN 2 08/24 0527 2 08/24 0500 86 131/68 98 OXYGEN 2 08/24 0429 2 08/24 0400 98.3 75 19 112/63 98 2 08/24 0316 2 08/24 0300 74 122/63 98 OXYGEN 2 08/24 0200 74 121/61 99 OXYGEN 2 08/24 0100 78 133/70 100 OXYGEN 2 08/24 0000 71 126/68 98 OXYGEN 08/23 2300 74 133/71 94 OXYGEN 2 08/23 2230 77 ROOM AIR 08/23 2200 76 133/62 96 OXYGEN 2 08/23 2100 76 128/68 97 OXYGEN 2 08/23 2000 97.8 81 20 149/78 93 2 08/236 2 08/23 1956 2 08/23 195 93 OXYGEN 2 08/23 1915 2 08/23 1900 71 140/73 100 OXYGEN 2 08/23 1827 2 08/23 1800 75 20 136/71 99 OXYGEN 2 08/23 1757 20 08/23 1734 2 08/23 1700 72 20 129/63 98 OXYGEN 2 08/23 1619 2 08/23 1600 74 20 137/72 98 OXYGEN 2 08/23 1520 2 08/23 1520 98.1 76 20 140/74 95 2 08/23 1500 74 20 140/74 99 OXYGEN 2 08/23 1405 2 08/23 1400 74 20 136/71 97 OXYGEN 2 08/23 1311 2 08/23 1228 2 08/23 1200 73 20 140/65 95 OXYGEN 2 08/23 1103 2 08/23 1100 76 22 133/73 92 ROOM AIR 08/23 1000 75 20 138/71 93 ROOM AIR 08/23 0905 98.6 77 22 126/77 95 08/23 0900 77 20 126/77 96 ROOM AIR 08/23 0803 98.6 08/23 0800 98.6 77 20 133/71 92 ROOM AIR 1 I&O 08/24 0700 Intake Total 1305 Output Total 1970 Balance -665 Intake, IV 705 Intake, Oral 600 Output, 50 Emesis Output, Other 20 Output, Stool Output, Urine 1900 Patient 103.901 kg Weight Exam General appearance no acute distress Respiratory no distress Cardiovascular regular rate and rhythm Abdomen soft (ostomy pink, no cellulitis) Post op patient plan Diagnoses: Renal insufficiency-slowly improving Diverticulitis Plan: Advance diet, Ambulate, Antibiotics, DVT prophylaxis, remove Sanchez This inpt stay is expected to cross 2 MNs from start of care Yes Antibiotic Stewardship (2) Infxn that will respond? Yes Right drug,dose,and route? Yes More targeted antbx? No at [id number]
[2016-08-24 17:55] LABS: URINE BILIRUBIN - DIPSTICK NEGATIVE (NEG); URINE BLOOD 1+ (NEG)
[2016-08-25] VITALS (18 sets, daily range): BP systolic 115–1136; BP diastolic 73–87
[2016-08-25 05:37] LABS: HEMOGLOBIN 9.6 g/dL (12.2-16.2); LYMPH # 0.9 K/mm3 (0.7-4.5); LYMPH % 12.3 % (10-50.0)
--- NOTE | 2016-08-25 07:21 | POST-OP PROGRESS NOTE ---
Post Op Subjective Data Patient is post-op day 5 Subjective data: Feels "worn out and weak". She states that she is happy now that her Sanchez catheter is back in place and that she remains concerned about her urinary retention. Post op objective data Vitals,I&O,and Labs: Vital signs, intake and output,and available lab data for the last 24 hours is as noted below. Vital Signs Date Time Temp Pulse Resp B/P Pulse O2 O2 Flow FiO2 Ox Delivery Rate 08/25 0609 78 18 131/77 98 OXYGEN 2 08/25 0410 98.9 72 18 1136/79 99 08/25 0400 98.0 77 20 136/79 100 OXYGEN 2 08/25 0321 91 ROOM AIR 08/25 0200 77 18 130/78 97 OXYGEN 2 08/25 0000 98.0 78 18 140/73 100 OXYGEN 2 08/24 2200 77 18 131/73 100 OXYGEN 2 08/24 2125 98.9 76 18 131/73 100 08/24 2000 98.9 70 18 130/78 100 OXYGEN 2 08/24 1800 98.2 70 20 145/78 98 OXYGEN 2 08/24 1748 98 2 08/24 1600 98.0 76 20 144/94 98 OXYGEN 2 08/24 1507 2 08/24 1400 98.0 74 20 133/74 98 OXYGEN 2 08/24 1400 98.0 72 20 126/68 98 2 08/24 1334 2 08/24 1300 2 08/24 1204 2 08/24 1200 98.4 71 20 136/75 98 OXYGEN 2 08/24 1114 2 08/24 1100 72 20 126/68 98 OXYGEN 2 08/24 1000 65 20 122/69 98 OXYGEN 2 08/24 0927 2 08/24 0902 2 08/24 0902 98.0 70 20 124/71 93 2 08/24 0900 98.0 70 20 124/71 93 08/24 0818 2 08/24 0800 69 20 121/68 93 08/24 1500 08/24 2300 08/25 0700 Intake Total 60 1842 1045 Output Total 879 359 6871 Balance -340 1362 -1655 Intake, IV 1822 1045 Intake, Oral 60 20 Output, Other 30 Output, Stool Output, Urine 868 173 7625 Patient 105.46 kg Weight Laboratory Tests Test Result Date Time Chemistry Sodium (mmoL/L) 140 08/25 0525 Potassium (mmoL/L) 3.6 08/25 05 Chloride (mmoL/L) 109 08/25 0525 Carbon Dioxide (mmoL/L) 26 08/25 0525 BUN (mg/dL) 18 08/25 05 Creatinine (mg/dL) 2.0 08/25 05 Estimated Creat Clear (ML/MIN) 48 08/25 05 Estimated GFR (MDRD) (ML/MIN) 25 08/25 05 Glucose (mg/dL) 121 08/25 05 POC Glucose (mg/dl) 92 08/23 2351 Lactic Acid (MMOL/L) 4.8 08/13 1750 Calcium (mg/dL) 6.6 08/25 05 Total Bilirubin (mg/dL) 0.3 08/13 1250 AST (U/L) 18 08/13 1250 ALT (U/L) 20 08/13 1250 Alkaline Phosphatase (U/L) 65 08/13 1250 Total Protein (gm/dL) 6.2 08/13 1250 Albumin (gm/dL) 3.2 08/13 1250 Globulin (gm/dL) 3.0 08/13 1250 Albumin/Globulin Ratio 1.1 08/13 1250 Hematology WBC (K/MM3) 7.0 08/25 525 RBC (M/mm3) 3.39 08/25 05 Hgb (g/dL) 9.6 08/25 525 Hct (%) 28.9 08/25 525 MCV (fl) 85.1 08/25 525 RDW (%) 15.9 08/25 525 Plt Count (K/mm3) 368 08/25 525 MPV (fl) 8.9 08/25 525 Gran % (%) 70.7 08/25 525 Gran # (K/mm3) 4.9 08/25 525 Total Counted (#CELLS) 100 08/20 0600 Lymphocytes % (%) 12.3 08/25 05 Monocytes % (%) 5.6 08/25 525 Eosinophils % (%) 11.2 08/25 05 Basophils % (%) 0.2 08/25 05 Neutrophils (%) 83 08/20 06 Band Neutrophils (%) 7 08/15 0630 Lymphocytes (Manual) (%) 13 08/20 06 Lymphocytes # (K/mm3) 0.9 08/25 525 Monocytes (Manual) (%) 4 08/20 06 Monocytes # (K/mm3) 0.4 08/25 525 Eosinophils # (K/mm3) 0.8 08/25 525 Eosinophils # (Manual) (%) 1 08/15 06 Basophils # (K/MM3) 0.0 08/25 525 Platelet Estimate SLIGHT INCREASE 08/20 600 Polychromasia SL. 08/15 630 Hypochromasia 2+ 08/13 1250 Poikilocytosis SL. 08/15 630 Macrocytosis 1+ 08/13 1250 PUBS MCHC (g/dl) 33.1 08/25 525 Immunology Antibody Screen NEGATIVE 08/19 820 MCH (pg) 28.1 08/25 525 Miscellaneous Miscellaneous Test POSITIVE 08/19 08 Misc Test Units BLOOD UNIT RELEASE 08/19 2030 Other Body Source Stl Cyclospora species NOT DETECTED 08/18 1310 Stool Rotavirus (PCR) NOT DETECTED 08/18 1310 Stool Campylobacter PCR NOT DETECTED 08/18 1310 Stool Giardia Lamblia PCR NOT DETECTED 08/18 1310 Stl Norovirus GI/GII PCR NOT DETECTED 08/18 1310 Serology Adenovirus (PCR) NOT DETECTED 08/18 1310 C. difficile Tox (PCR) NOT DETECTED 08/18 1310 E. coli (PCR) NOT DETECTED 08/18 1310 Yersinia (PCR) NOT DETECTED 08/18 1310 Toxicology Vancomycin Trough (mcg/mL) 20.9 08/19 630 Random Vancomycin (mcg/mL) 27.4 08/18 0645 Urines Urine Color YELLOW 08/24 1730 Urine Appearance CLEAR 08/24 1730 Urine pH 6.0 08/24 173 Ur Specific [place] 1.010 08/24 1730 Urine Protein (mg/dL) NEGATIVE 08/24 1730 Urine Ketones (mg/dL) NEGATIVE 08/24 1730 Urine Blood 1+ 08/24 1730 Urine Nitrate NEGATIVE 08/24 1730 Urine Bilirubin NEGATIVE 08/24 1730 Urine Urobilinogen (E.U./dL) 0.2 08/24 1730 Ur Leukocyte Esterase NEGATIVE 08/24 1730 Urine RBC (rbc/hpf) 3-5 08/24 1730 Urine WBC (wbc/hpf) OCC 08/24 173 Ur Squamous Epith Cells (#/hpf) 3-5 08/24 1730 Urine Bacteria TRACE 08/24 1730 Hyaline Casts (#/lpf) 3-5 08/13 1520 Urine Mucus 3+ 08/20 1435 Urine Glucose NEGATIVE 08/24 1730 Physical Exam VS/I&O Vital Signs Date Time Temp Pulse Resp B/P Pulse O2 O2 Flow FiO2 Ox Delivery Rate 08/25 0609 78 18 131/77 98 OXYGEN 2 08/25 0410 98.9 72 18 1136/79 99 08/25 0400 98.0 77 20 136/79 100 OXYGEN 2 08/25 0321 91 ROOM AIR 08/25 0200 77 18 130/78 97 OXYGEN 2 08/25 0000 98.0 78 18 140/73 100 OXYGEN 2 08/24 2200 77 18 131/73 100 OXYGEN 2 08/24 2125 98.9 76 18 131/73 100 08/24 2000 98.9 70 18 130/78 100 OXYGEN 2 08/24 1800 98.2 70 20 145/78 98 OXYGEN 2 08/24 1748 98 2 08/24 1600 98.0 76 20 144/94 98 OXYGEN 2 08/24 1507 2 08/24 1400 98.0 74 20 133/74 98 OXYGEN 2 08/24 1400 98.0 72 20 126/68 98 2 08/24 1334 2 08/24 1300 2 08/24 1204 2 08/24 1200 98.4 71 20 136/75 98 OXYGEN 2 08/24 1114 2 08/24 1100 72 20 126/68 98 OXYGEN 2 08/24 1000 65 20 122/69 98 OXYGEN 2 08/24 0927 2 08/24 0902 2 08/24 0902 98.0 70 20 124/71 93 2 08/24 0900 98.0 70 20 124/71 93 08/24 0818 2 08/24 0800 69 20 121/68 93 I&O 08/25 0700 Intake Total 2947 Output Total 3580 Balance -633 Intake, IV 2867 Intake, Oral 80 Output, Other 30 Output, Stool Output, Urine 3550 Patient 105.46 kg Weight Exam General appearance no acute distress Respiratory no distress Cardiovascular normal heart sounds Abdomen soft (no cellulitis) Post op patient plan Diagnoses: Deconditioning Urinary retention Plan: Advance diet, continue physical therapy, continue Sanchez catheter for now This inpt stay is expected to cross 2 MNs from start of care Yes Antibiotic Stewardship (2) Infxn that will respond? Yes Right drug,dose,and route? Yes More targeted antbx? No at 0720
--- NOTE | 2016-08-25 08:56 | ACUTE CARE PROGRESS NOTE (QUA) ---
Progress Notes Subjective Date 08/25/16 Time 0855 Patient/family reports: no complaints Nursing reports: alert Objective Findings Laboratory Tests 08/25/16 0525: Sodium 140, Potassium 3.6, Chloride 109 H, Carbon Dioxide 26, BUN 18, Creatinine 2.0 H, Estimated Creat Clear 48 L, Estimated GFR (MDRD) 25 L, Glucose 121 H, Calcium 6.6 L, WBC 7.0, RBC 3.39 L, Hgb 9.6 L, Hct 28.9 L, MCV 85.1, RDW 15.9, Plt Count 368, MPV 8.9, Gran % 70.7, Gran # 4.9, Lymphocytes % 12.3, Monocytes % 5.6, Eosinophils % 11.2, Basophils % 0.2, Lymphocytes # 0.9, Monocytes # 0.4, Eosinophils # 0.8 H, Basophils # 0.0, PUBS MCHC 33.1, MCH 28.1 08/24/16 1730: Urine Color YELLOW, Urine Appearance CLEAR, Urine pH 6.0, Ur Specific [place] 1.010, Urine Protein NEGATIVE, Urine Ketones NEGATIVE, Urine Blood 1+ H, Urine Nitrate NEGATIVE, Urine Bilirubin NEGATIVE, Urine Urobilinogen 0.2, Ur Leukocyte Esterase NEGATIVE, Urine RBC 3-5, Urine WBC OCC, Ur Squamous Epith Cells 3-5, Urine Bacteria TRACE, Urine Glucose NEGATIVE Vital Signs Date Time Temp Pulse Resp B/P Pulse O2 O2 Flow FiO2 Ox Delivery Rate 08/25 0609 78 18 131/77 98 OXYGEN 2 08/25 0410 98.9 72 18 1136/79 99 08/25 0400 98.0 77 20 136/79 100 OXYGEN 2 08/25 0321 91 ROOM AIR 08/25 0200 77 18 130/78 97 OXYGEN 2 08/25 0000 98.0 78 18 140/73 100 OXYGEN 2 08/24 2200 77 18 131/73 100 OXYGEN 2 08/24 2125 98.9 76 18 131/73 100 08/24 2000 98.9 70 18 130/78 100 OXYGEN 2 08/24 1800 98.2 70 20 145/78 98 OXYGEN 2 08/24 1748 98 2 08/24 1600 98.0 76 20 144/94 98 OXYGEN 2 08/24 1507 2 08/24 1400 98.0 74 20 133/74 98 OXYGEN 2 08/24 1400 98.0 72 20 126/68 98 2 08/24 1334 2 08/24 1300 2 08/24 1204 2 08/24 1200 98.4 71 20 136/75 98 OXYGEN 2 08/24 1114 2 08/24 1100 72 20 126/68 98 OXYGEN 2 08/24 1000 65 20 122/69 98 OXYGEN 2 08/24 0927 2 08/24 0902 2 08/24 0902 98.0 70 20 124/71 93 2 08/24 0900 98.0 70 20 124/71 93 Current Medications Tolterodine Tartrate 2 MG BID PO Potassium Chloride/Dextrose/Sod Cl 1,000 ML .Q10H IV Potassium Chloride/Water 100 ML Q1H IV (DC) Pantoprazole Sodium 40 MG DAILY IV Ertapenem 0.5 GM 1300 IV Sodium Chloride 50 ML Bisoprolol Fumarate 2.5 MG DAILY PO Enoxaparin Sodium 30 MG DAILY SC Pantoprazole Sodium 40 MG QHS IV Ondansetron HCl 4 MG Q6HP PRN IV Sodium Chloride 10 ML PRN PRN IV Morphine Sulfate 1 MG [id number] PRN IV Nicotine 21 MG DAILYP PRN TD Promethazine HCl 12.5 MG Q3HP PRN IV Sodium Chloride 25 ML PRN PRN IV Morphine Sulfate 2 MG Q2HP PRN IV Morphine Sulfate 4 MG Q2HP PRN IV Levothyroxine Sodium 0.15 MG DAILY PO Fenofibrate 134 MG DAILY PO Simethicone 160 MG Q6HP PRN PO Acetaminophen 650 MG Q4HP PRN PO Influenza Virus Vaccine Quadrival 0.5 ML PRN PRN IM Sodium Chloride 10 ML PRN PRN IV Last VS-Temp:98.9 B/P:131/77 Pulse:78 Resp:18 SaO2:98 OXYGEN Last weight lbs:232 oz:8 K.46 Method:Bed Scales Exam General appearance: normal appearance, alert, active, awake, no acute distress Eyes: normal exam ENT: normal exam Neck: normal inspection, full range of motion Cardiovascular: normal exam, regular rate & rhythm Respiratory: normal exam, clear to auscultation, good air movement, no respiratory distress ABD: normal exam, normal bowel sounds, soft, tenderness, OSTOMY IN PLACE Genitourinary: catheter in place Extremities: normal exam, edema (LOWER EXT) Musculoskeletal: normal exam Skin: normal exam, DSG C/D/I Neuro: normal exam, alert, intact, oriented Reviewed: allergies, medications, vital signs, lab results, consult note Assessment/Plan Problem List 1. Diverticulitis 2. Renal insufficiency Patient condition Stable Plan: continue current care This inpt stay is expected to cross 2 MNs from start of care Yes Comments: ROUNDED WITH JENNIFER Antibiotic Stewardship (2) Infxn that will respond? Yes Right drug,dose,and route? Yes More targeted antbx? No at 0900
[2016-08-26 01:03] VITALS: BP 161/85
[2016-08-26 04:56] VITALS: BP 145/85
[2016-08-26 05:46] LABS: HEMOGLOBIN 9.5 g/dL (12.2-16.2); LYMPH % 14.1 % (10-50.0)
--- NOTE | 2016-08-26 07:11 | POST-OP PROGRESS NOTE ---
Post Op Subjective Data Patient is post-op day 6 Subjective data: Feels "better". Post op objective data Vitals,I&O,and Labs: Vital signs, intake and output,and available lab data for the last 24 hours is as noted below. Vital Signs Date Time Temp Pulse Resp B/P Pulse O2 O2 Flow FiO2 Ox Delivery Rate 08/26 0608 2 08/26 0458 2 08/26 0456 98.5 82 21 145/85 98 OXYGEN 2 08/26 0350 2 08/26 0217 2 08/26 0130 2 08/26 0105 2 08/26 0103 98.7 75 18 161/85 98 ROOM AIR 08/25 2303 2 08/25 2200 78 18 148/85 99 OXYGEN 2 08/25 2102 2 08/25 210 95 ROOM AIR 08/25 2040 98.7 80 14 141/87 95 08/25 2021 98.7 80 14 141/87 95 ROOM AIR 08/25 1842 20 08/25 1827 2 08/25 1824 97.6 82 20 143/85 100 08/25 1815 97.6 82 20 143/85 100 ROOM AIR 08/25 1448 2 08/25 1400 84 20 131/79 94 ROOM AIR 08/25 1300 82 20 134/82 95 ROOM AIR 08/25 1200 78 22 131/75 98 ROOM AIR 08/25 1100 80 22 131/75 97 ROOM AIR 08/25 1000 93 20 127/81 93 ROOM AIR 08/25 0910 97.6 86 20 115/81 97 08/25 0900 86 20 115/81 94 ROOM AIR 08/25 0800 97.6 86 20 128/79 96 ROOM AIR 08/25 1500 08/25 2300 08/26 0700 Intake Total 480 1458 Output Total 1999 1550 Balance 480 -542 -1550 Intake, IV 1098 Intake, Oral 480 360 Output, Urine 1999 1550 Laboratory Tests Test Result Date Time Chemistry Sodium (mmoL/L) 142 08/26 0535 Potassium (mmoL/L) 3.8 08/26 0535 Chloride (mmoL/L) 108 08/26 0535 Carbon Dioxide (mmoL/L) 27 08/26 0535 BUN (mg/dL) 15 08/26 0535 Creatinine (mg/dL) 1.9 08/26 0535 Estimated Creat Clear (ML/MIN) 51 12/29 0535 Estimated GFR (MDRD) (ML/MIN) 27 08/26 535 Glucose (mg/dL) 104 08/26 535 POC Glucose (mg/dl) 103 08/26 0645 Lactic Acid (MMOL/L) 4.8 08/13 1750 Calcium (mg/dL) 6.8 08/26 535 Total Bilirubin (mg/dL) 0.3 08/13 1250 AST (U/L) 18 08/13 1250 ALT (U/L) 20 08/13 1250 Alkaline Phosphatase (U/L) 65 08/13 1250 Total Protein (gm/dL) 6.2 08/13 1250 Albumin (gm/dL) 3.2 08/13 1250 Globulin (gm/dL) 3.0 08/13 1250 Albumin/Globulin Ratio 1.1 08/13 1250 Hematology WBC (K/MM3) 7.2 08/26 535 RBC (M/mm3) 3.45 08/26 535 Hgb (g/dL) 9.5 08/26 535 Hct (%) 29.1 08/26 535 MCV (fl) 84.3 08/26 535 RDW (%) 16.0 08/26 535 Plt Count (K/mm3) 395 08/26 535 MPV (fl) 9.0 08/26 535 Gran % (%) 67.7 08/26 535 Gran # (K/mm3) 4.9 08/26 535 Total Counted (#CELLS) 100 08/20 600 Lymphocytes % (%) 14.1 08/26 535 Monocytes % (%) 6.0 08/26 535 Eosinophils % (%) 11.4 08/26 535 Basophils % (%) 0.7 08/26 535 Neutrophils (%) 83 08/20 600 Band Neutrophils (%) 7 08/15 630 Lymphocytes (Manual) (%) 13 08/20 600 Lymphocytes # (K/mm3) 1.0 08/26 535 Monocytes (Manual) (%) 4 08/20 600 Monocytes # (K/mm3) 0.4 08/26 535 Eosinophils # (K/mm3) 0.8 08/26 535 Eosinophils # (Manual) (%) 1 08/15 630 Basophils # (K/MM3) 0.1 12/29 0535 Platelet Estimate SLIGHT INCREASE 08/20 600 Polychromasia SL. 08/15 0630 Hypochromasia 2+ 08/13 1250 Poikilocytosis SL. 08/15 0630 Macrocytosis 1+ 08/13 1250 PUBS MCHC (g/dl) 32.7 08/26 0535 Immunology Antibody Screen NEGATIVE 08/19 820 MCH (pg) 27.6 08/26 0535 Miscellaneous Miscellaneous Test POSITIVE 08/19 0820 Misc Test Units BLOOD UNIT RELEASE 08/19 2030 Other Body Source Stl Cyclospora species NOT DETECTED 08/18 1310 Stool Rotavirus (PCR) NOT DETECTED 08/18 1310 Stool Campylobacter PCR NOT DETECTED 08/18 1310 Stool Giardia Lamblia PCR NOT DETECTED 08/18 1310 Stl Norovirus GI/GII PCR NOT DETECTED 08/18 1310 Serology Adenovirus (PCR) NOT DETECTED 08/18 131 C. difficile Tox (PCR) NOT DETECTED 08/18 1310 E. coli (PCR) NOT DETECTED 08/18 1310 Yersinia (PCR) NOT DETECTED 08/18 131 Toxicology Vancomycin Trough (mcg/mL) 20.9 08/19 06 Random Vancomycin (mcg/mL) 27.4 08/18 0645 Urines Urine Color YELLOW 08/24 1730 Urine Appearance CLEAR 08/24 1730 Urine pH 6.0 08/24 1730 Ur Specific [place] 1.010 08/24 1730 Urine Protein (mg/dL) NEGATIVE 08/24 173 Urine Ketones (mg/dL) NEGATIVE 08/24 1730 Urine Blood 1+ 08/24 1730 Urine Nitrate NEGATIVE 08/24 173 Urine Bilirubin NEGATIVE 08/24 173 Urine Urobilinogen (E.U./dL) 0.2 08/24 1730 Ur Leukocyte Esterase NEGATIVE 08/24 1730 Urine RBC (rbc/hpf) 3-5 08/24 1730 Urine WBC (wbc/hpf) OCC 08/24 1730 Ur Squamous Epith Cells (#/hpf) 3-5 08/24 1730 Urine Bacteria TRACE 08/24 1730 Hyaline Casts (#/lpf) 3-5 08/13 1520 Urine Mucus 3+ 08/20 1435 Urine Glucose NEGATIVE 08/24 1730 Physical Exam VS/I&O Vital Signs Date Time Temp Pulse Resp B/P Pulse O2 O2 Flow FiO2 Ox Delivery Rate 08/26 0608 2 08/26 0458 2 08/26 0456 98.5 82 21 145/85 98 OXYGEN 2 08/26 0350 2 08/26 0217 2 08/26 0130 2 08/26 0105 2 08/26 0103 98.7 75 18 161/85 98 ROOM AIR 08/25 2303 2 08/25 2200 78 18 148/85 99 OXYGEN 2 08/25 2102 2 08/25 2102 95 ROOM AIR 08/25 2040 98.7 80 14 141/87 95 08/25 2021 98.7 80 14 141/87 95 ROOM AIR 08/25 1842 20 08/25 1827 2 08/25 1824 97.6 82 20 143/85 100 08/25 1815 97.6 82 20 143/85 100 ROOM AIR 08/25 1448 2 08/25 1400 84 20 131/79 94 ROOM AIR 08/25 1300 82 20 134/82 95 ROOM AIR 08/25 1200 78 22 131/75 98 ROOM AIR 08/25 1100 80 22 131/75 97 ROOM AIR 08/25 1000 93 20 127/81 93 ROOM AIR 08/25 0910 97.6 86 20 115/81 97 08/25 0900 86 20 115/81 94 ROOM AIR 08/25 0800 97.6 86 20 128/79 96 ROOM AIR I&O 08/26 0700 Intake Total 1938 Output Total 3550 Balance -1612 Intake, IV 1098 Intake, Oral 840 Output, Urine 3550 Exam General appearance no acute distress Respiratory no distress, areating well Cardiovascular regular rate and rhythm Abdomen soft (no cellulitis) Post op patient plan Diagnoses: Urinary retention Deconditioning-slowly improving Plan: Ambulate, Antibiotics, DVT prophylaxis, remove CASIE Sanchez [employer], saline lock This inpt stay is expected to cross 2 MNs from start of care Yes Antibiotic Stewardship (2) Infxn that will respond? Yes Right drug,dose,and route? Yes More targeted antbx? No at 0710
--- NOTE | 2016-08-26 08:44 | ACUTE CARE PROGRESS NOTE (QUA) ---
Progress Notes Subjective Date 08/26/16 Time 0836 Patient/family reports: feeling better, pain Nursing reports: alert Objective Findings Laboratory Tests 08/26/16 0645: POC Glucose 103 08/26/16 0535: Sodium 142, Potassium 3.8, Chloride 108 H, Carbon Dioxide 27, BUN 15, Creatinine 1.9 H, Estimated Creat Clear 51, Estimated GFR (MDRD) 27 L, Glucose 104, Calcium 6.8 L, WBC 7.2, RBC 3.45 L, Hgb 9.5 L, Hct 29.1 L, MCV 84.3, RDW 16.0, Plt Count 395, MPV 9.0, Gran % 67.7, Gran # 4.9, Lymphocytes % 14.1, Monocytes % 6.0, Eosinophils % 11.4, Basophils % 0.7, Lymphocytes # 1.0, Monocytes # 0.4, Eosinophils # 0.8 H, Basophils # 0.1, PUBS MCHC 32.7, MCH 27.6 08/25/165: POC Glucose 119 H Vital Signs Date Time Temp Pulse Resp B/P Pulse O2 O2 Flow FiO2 Ox Delivery Rate 08/26 0608 2 08/26 0500 2 08/26 0458 2 08/26 0456 98.5 82 21 145/85 98 OXYGEN 2 08/26 0350 2 08/26 0217 2 08/26 0130 2 08/26 0105 2 08/26 0103 98.7 75 18 161/85 98 ROOM AIR 08/25 2303 2 08/25 2200 78 18 148/85 99 OXYGEN 2 08/25 2102 2 08/25 2102 95 ROOM AIR 08/25 2040 98.7 80 14 141/87 95 08/25 2021 98.7 80 14 141/87 95 ROOM AIR 08/25 1842 20 08/25 1827 2 08/25 1824 97.6 82 20 143/85 100 08/25 1815 97.6 82 20 143/85 100 ROOM AIR 08/25 1448 2 08/25 1400 84 20 131/79 94 ROOM AIR 08/25 1300 82 20 134/82 95 ROOM AIR 08/25 1200 78 22 131/75 98 ROOM AIR 08/25 1100 80 22 131/75 97 ROOM AIR 08/25 1000 93 20 127/81 93 ROOM AIR 08/25 0910 97.6 86 20 115/81 97 08/25 0900 86 20 115/81 94 ROOM AIR Current Medications Ertapenem 1 GM 1300 IV Sodium Chloride 50 ML Potassium Chloride/Dextrose/Sod Cl 1,000 ML .Q20H IV (CAN) Bisoprolol Fumarate 2.5 MG DAILY PO Enoxaparin Sodium 40 MG DAILY SC (DC) Enoxaparin Sodium 40 MG DAILY SC Fenofibrate 134 MG DAILY PO Levothyroxine Sodium 0.15 MG DAILY PO Pantoprazole Sodium 40 MG DAILY IV (CAN) Oxycodone/Acetaminophen 2 EACH Q4HP PRN PO Oxycodone/Acetaminophen 1 EACH Q4HP PRN PO Oxycodone/Acetaminophen 1 EACH Q4HP PRN PO (DC) Pantoprazole Sodium 40 MG ONCE ONE PO (DC) Pantoprazole Sodium 40 MG QHS IV (DC) Tolterodine Tartrate 2 MG BID PO Morphine Sulfate 0 .STK-MED ONE IV (DC) Acetaminophen 650 MG Q4HP PRN PO Influenza Virus Vaccine Quadrival 0.5 ML PRN PRN IM Morphine Sulfate 2 MG Q2HP PRN IV Morphine Sulfate 4 MG Q2HP PRN IV Morphine Sulfate 1 MG [id number] PRN IV (DC) Nicotine 21 MG DAILYP PRN TD Ondansetron HCl 4 MG Q6HP PRN IV Promethazine HCl 12.5 MG Q3HP PRN IV Simethicone 160 MG Q6HP PRN PO Sodium Chloride 10 ML PRN PRN IV Sodium Chloride 25 ML PRN PRN IV Sodium Chloride 10 ML PRN PRN IV Ondansetron HCl 0 .STK-MED ONE .ROUTE (DC) Ertapenem 1 GM 1300 IV Sodium Chloride 50 ML Tolterodine Tartrate 2 MG BID PO (DC) Potassium Chloride/Dextrose/Sod Cl 1,000 ML .Q20H IV (DC) Pantoprazole Sodium 40 MG DAILY IV (DC) Ertapenem 0.5 GM 1300 IV (DC) Sodium Chloride 50 ML Bisoprolol Fumarate 2.5 MG DAILY PO (DC) Enoxaparin Sodium 30 MG DAILY SC (DC) Pantoprazole Sodium 40 MG QHS IV (DC) Ondansetron HCl 4 MG Q6HP PRN IV (DC) Sodium Chloride 10 ML PRN PRN IV (DC) Morphine Sulfate 1 MG [id number] PRN IV (DC) Nicotine 21 MG DAILYP PRN TD (DC) Promethazine HCl 12.5 MG Q3HP PRN IV (DC) Sodium Chloride 25 ML PRN PRN IV (DC) Morphine Sulfate 2 MG Q2HP PRN IV (DC) Morphine Sulfate 4 MG Q2HP PRN IV (DC) Levothyroxine Sodium 0.15 MG DAILY PO (DC) Fenofibrate 134 MG DAILY PO (DC) Simethicone 160 MG Q6HP PRN PO (DC) Acetaminophen 650 MG Q4HP PRN PO (DC) Influenza Virus Vaccine Quadrival 0.5 ML PRN PRN IM (DC) Sodium Chloride 10 ML PRN PRN IV (DC) Last VS-Temp:98.5 B/P:145/85 Pulse:82 Resp:21 SaO2:98 OXYGEN Last weight lbs:232 oz:8 K.46 Method:Bed Scales Exam General appearance: normal appearance, alert, active, awake, no acute distress Eyes: normal exam ENT: normal exam Neck: normal inspection, full range of motion Cardiovascular: normal exam, regular rate & rhythm Respiratory: normal exam, clear to auscultation, good air movement, normal breath sounds, no respiratory distress ABD: normal exam, ostomy to rt abd, rachel drain to lt side, dsg c/d/i Genitourinary: catheter in place Extremities: normal exam, warm Musculoskeletal: normal exam Skin: normal exam, intact, warm Neuro: normal exam, alert, intact, oriented Reviewed: allergies, medications, vital signs, lab results, consult note Assessment/Plan Problem List 1. Diverticulitis 2. Renal insufficiency Patient condition Stable Plan: continue current care This inpt stay is expected to cross 2 MNs from start of care Yes Comments: encouraged oob, Antibiotic Stewardship (2) Infxn that will respond? Yes Right drug,dose,and route? Yes More targeted antbx? No at 0843
[2016-08-26 11:56] VITALS: BP 139/78
[2016-08-26 16:31] VITALS: BP 137/76
[2016-08-26 19:50] VITALS: BP 133/81
[2016-08-27 04:01] VITALS: BP 136/73
[2016-08-27 07:50] VITALS: BP 136/77
--- NOTE | 2016-08-27 09:12 | ACUTE CARE PROGRESS NOTE (QUA) ---
Progress Notes Subjective Date 08/27/16 Time 0908 Patient/family reports: no complaints Nursing reports: alert Objective Findings Laboratory Tests 08/27/16 0530: Sodium 142, Potassium 3.4 L, Chloride 108 H, Carbon Dioxide 29, BUN 13, Creatinine 1.8 H, Estimated Creat Clear 54, Estimated GFR (MDRD) 29 L, Glucose 85, Calcium 6.8 L 08/26/16 2103: POC Glucose 101 Vital Signs Date Time Temp Pulse Resp B/P Pulse O2 O2 Flow FiO2 Ox Delivery Rate 08/27 0750 97.6 75 18 136/77 99 ROOM AIR 08/27 0401 98.2 81 20 136/73 98 ROOM AIR 08/27 0046 2 08/27 0045 94 ROOM AIR 08/26 2100 16 08/26 2037 98.0 83 16 133/81 97 08/26 1950 98.0 83 16 133/81 97 ROOM AIR 08/26 1631 98.5 75 16 137/76 97 ROOM AIR 08/26 1520 22 08/26 1156 98.4 79 16 139/78 96 ROOM AIR Current Medications Sodium Chloride 25 ML .STK-MED ONE IV (DC) Promethazine HCl 0 .STK-MED ONE .ROUTE (DC) Acetaminophen 0 .STK-MED ONE PO (DC) Ondansetron HCl 0 .STK-MED ONE .ROUTE (DC) Oxycodone/Acetaminophen 0 .STK-MED ONE PO (DCr) Diagnostic Test (Pha) 1 EACH QID FS Oxycodone/Acetaminophen 0 .STK-MED ONE PO (DCr) Ondansetron HCl 0 .STK-MED ONE .ROUTE (DC) Ertapenem 1 GM 1300 IV Sodium Chloride 50 ML Pantoprazole Sodium 0 .STK-MED ONE .ROUTE (DC) Bisoprolol Fumarate 2.5 MG DAILY PO Enoxaparin Sodium 40 MG DAILY SC Fenofibrate 134 MG DAILY PO Levothyroxine Sodium 0.15 MG DAILY PO Oxycodone/Acetaminophen 2 EACH Q4HP PRN PO (r) Oxycodone/Acetaminophen 1 EACH Q4HP PRN PO (r) Tolterodine Tartrate 2 MG BID PO Acetaminophen 650 MG Q4HP PRN PO Influenza Virus Vaccine Quadrival 0.5 ML PRN PRN IM Morphine Sulfate 2 MG Q2HP PRN IV Morphine Sulfate 4 MG Q2HP PRN IV Nicotine 21 MG DAILYP PRN TD Ondansetron HCl 4 MG Q6HP PRN IV Promethazine HCl 12.5 MG Q3HP PRN IV Simethicone 160 MG Q6HP PRN PO Sodium Chloride 10 ML PRN PRN IV Sodium Chloride 25 ML PRN PRN IV Sodium Chloride 10 ML PRN PRN IV Ertapenem 1 GM 1300 IV (DC) Sodium Chloride 50 ML Last VS-Temp:97.6 B/P:136/77 Pulse:75 Resp:18 SaO2:99 ROOM AIR Last weight lbs:232 oz:8 K.46 Method:Bed Scales Exam General appearance: normal appearance, active, awake, no acute distress Eyes: normal exam ENT: normal exam Neck: normal inspection, full range of motion Cardiovascular: normal exam, regular rate & rhythm Respiratory: normal exam, clear to auscultation, good air movement ABD: normal exam, ostomy to abd draining loose stool Genitourinary: normal voiding & quantity Extremities: normal exam, moves all, warm Musculoskeletal: normal exam Skin: normal exam, normal color, warm Neuro: normal exam, alert, intact, oriented Reviewed: allergies, medications, vital signs, lab results, consult note Assessment/Plan Problem List 1. Diverticulitis 2. Renal insufficiency 3. Abdominal pain Qualifiers: Abdominal location: lower abdomen, unspecified Qualified Code: R10.30 - Lower abdominal pain, unspecified Patient condition Stable Plan: continue current care This inpt stay is expected to cross 2 MNs from start of care Yes Comments: slow but steady process and still requires significant assistance with adls, iadls. rounded with jose Antibiotic Stewardship (2) Infxn that will respond? Yes Right drug,dose,and route? Yes More targeted antbx? No at [id number]
--- NOTE | 2016-08-27 09:37 | POST-OP PROGRESS NOTE ---
Post Op Subjective Data Patient is post-op day 7 Subjective data: She states that she is "about the same". Post op objective data Vitals,I&O,and Labs: Vital signs, intake and output,and available lab data for the last 24 hours is as noted below. Vital Signs Date Time Temp Pulse Resp B/P Pulse O2 O2 Flow FiO2 Ox Delivery Rate 08/27 0750 97.6 75 18 136/77 99 ROOM AIR 08/27 0401 98.2 81 20 136/73 98 ROOM AIR 08/27 0046 2 08/27 0045 94 ROOM AIR 08/26 2100 16 08/26 2037 98.0 83 16 133/81 97 08/26 1950 98.0 83 16 133/81 97 ROOM AIR 08/26 1631 98.5 75 16 137/76 97 ROOM AIR 08/26 1520 22 08/26 1156 98.4 79 16 139/78 96 ROOM AIR 08/26 1500 08/26 2300 08/27 0700 Intake Total 120 877 295 Output Total 8105 112 4088 Balance -1230 277 -1005 Intake, IV 637 55 Intake, Oral 120 240 240 Output, Stool Output, Urine 7298 576 3615 Laboratory Tests Test Result Date Time Chemistry Sodium (mmoL/L) 142 08/27 0530 Potassium (mmoL/L) 3.4 08/27 0530 Chloride (mmoL/L) 108 08/27 0530 Carbon Dioxide (mmoL/L) 29 08/27 0530 BUN (mg/dL) 13 08/27 0530 Creatinine (mg/dL) 1.8 08/27 0530 Estimated Creat Clear (ML/MIN) 54 08/27 0530 Estimated GFR (MDRD) (ML/MIN) 29 08/27 0530 Glucose (mg/dL) 85 08/27 0530 POC Glucose (mg/dl) 101 08/26 2103 Lactic Acid (MMOL/L) 4.8 08/13 1750 Calcium (mg/dL) 6.8 08/27 0530 Total Bilirubin (mg/dL) 0.3 08/13 1250 AST (U/L) 18 08/13 1250 ALT (U/L) 20 08/13 1250 Alkaline Phosphatase (U/L) 65 08/13 1250 Total Protein (gm/dL) 6.2 08/13 1250 Albumin (gm/dL) 3.2 08/13 1250 Globulin (gm/dL) 3.0 08/13 1250 Albumin/Globulin Ratio 1.1 08/13 1250 Hematology WBC (K/MM3) 7.2 08/26 535 RBC (M/mm3) 3.45 08/26 535 Hgb (g/dL) 9.5 08/26 535 Hct (%) 29.1 08/26 535 MCV (fl) 84.3 08/26 535 RDW (%) 16.0 08/26 535 Plt Count (K/mm3) 395 08/26 535 MPV (fl) 9.0 08/26 535 Gran % (%) 67.7 08/26 535 Gran # (K/mm3) 4.9 08/26 535 Total Counted (#CELLS) 100 08/20 600 Lymphocytes % (%) 14.1 08/26 535 Monocytes % (%) 6.0 08/26 535 Eosinophils % (%) 11.4 08/26 535 Basophils % (%) 0.7 08/26 535 Neutrophils (%) 83 08/20 600 Band Neutrophils (%) 7 08/15 0630 Lymphocytes (Manual) (%) 13 08/20 06 Lymphocytes # (K/mm3) 1.0 08/26 535 Monocytes (Manual) (%) 4 08/20 600 Monocytes # (K/mm3) 0.4 08/26 535 Eosinophils # (K/mm3) 0.8 08/26 535 Eosinophils # (Manual) (%) 1 08/15 0630 Basophils # (K/MM3) 0.1 08/26 535 Platelet Estimate SLIGHT INCREASE 08/20 600 Polychromasia SL. 08/15 0630 Hypochromasia 2+ 08/13 1250 Poikilocytosis SL. 08/15 0630 Macrocytosis 1+ 08/13 1250 PUBS MCHC (g/dl) 32.7 08/26 535 Immunology Antibody Screen NEGATIVE 08/19 820 MCH (pg) 27.6 08/26 535 Miscellaneous Miscellaneous Test POSITIVE 08/19 0820 Misc Test Units BLOOD UNIT RELEASE 08/19 2030 Other Body Source Stl Cyclospora species NOT DETECTED 08/18 1310 Stool Rotavirus (PCR) NOT DETECTED 08/18 131 Stool Campylobacter PCR NOT DETECTED 08/18 1310 Stool Giardia Lamblia PCR NOT DETECTED 08/18 131 Stl Norovirus GI/GII PCR NOT DETECTED 08/18 1310 Serology Adenovirus (PCR) NOT DETECTED 08/18 1310 C. difficile Tox (PCR) NOT DETECTED 08/18 1310 E. coli (PCR) NOT DETECTED 08/18 1310 Yersinia (PCR) NOT DETECTED 08/18 1310 Toxicology Vancomycin Trough (mcg/mL) 20.9 08/19 0630 Random Vancomycin (mcg/mL) 27.4 08/18 0645 Urines Urine Color YELLOW 08/24 173 Urine Appearance CLEAR 08/24 173 Urine pH 6.0 08/24 173 Ur Specific [place] 1.010 08/24 173 Urine Protein (mg/dL) NEGATIVE 08/24 173 Urine Ketones (mg/dL) NEGATIVE 08/24 173 Urine Blood 1+ 08/24 173 Urine Nitrate NEGATIVE 08/24 173 Urine Bilirubin NEGATIVE 08/24 1730 Urine Urobilinogen (E.U./dL) 0.2 08/24 173 Ur Leukocyte Esterase NEGATIVE 08/24 1730 Urine RBC (rbc/hpf) 3-5 08/24 1730 Urine WBC (wbc/hpf) OCC 08/24 1730 Ur Squamous Epith Cells (#/hpf) 3-5 08/24 1730 Urine Bacteria TRACE 08/24 1730 Hyaline Casts (#/lpf) 3-5 08/13 1520 Urine Mucus 3+ 08/20 1435 Urine Glucose NEGATIVE 08/24 1730 Physical Exam VS/I&O Vital Signs Date Time Temp Pulse Resp B/P Pulse O2 O2 Flow FiO2 Ox Delivery Rate 08/27 0750 97.6 75 18 136/77 99 ROOM AIR 08/27 0401 98.2 81 20 136/73 98 ROOM AIR 08/27 0046 2 08/27 0045 94 ROOM AIR 08/26 2100 16 08/26 2037 98.0 83 16 133/81 97 08/26 1950 98.0 83 16 133/81 97 ROOM AIR 08/26 1631 98.5 75 16 137/76 97 ROOM AIR 08/26 1520 22 08/26 1156 98.4 79 16 139/78 96 ROOM AIR I&O 08/27 0700 Intake Total 1292 Output Total 3250 Balance -1958 Intake, IV 692 Intake, Oral 600 Output, Stool Output, Urine 3250 Exam General appearance no acute distress Respiratory no distress Cardiovascular regular rate and rhythm Abdomen soft ((see below)) Findings/Data Evaluation of the abdomen reveal no sign of active infection. The wound base and margin are clean. Output from the Emmanuel-Yang drain is "a little thinner". Her ostomy is pink and viable and there is a large amount of fluid in the bag. Post op patient plan Diagnoses: Deconditioning Complicated diverticulitis with repeat operation for leak versus recurrent diverticulitis Renal insufficiency - slowly improving... Off IV fluids Plan: continue physical therapy This inpt stay is expected to cross 2 MNs from start of care Yes Additional data: If the patient is cleared from a physical therapy standpoint for discharge home, this will be completed later today. If she requires further management with regard to her deconditioning, she may be transferred to a swing bed or even discharged for short-term rehab. IV antibiotics will be continued for now and most likely reevaluated after her repeat CT scan (likely next week). Antibiotic Stewardship (2) Infxn that will respond? Yes Right drug,dose,and route? Yes More targeted antbx? No at [id number]
[2016-08-27 09:43] VITALS: BP 136/77
[2016-08-27 16:15] VITALS: BP 125/73
[2016-08-27 19:45] VITALS: BP 130/73
[2016-08-28 04:02] VITALS: BP 138/80
[2016-08-28 08:29] VITALS: BP 138/81
--- NOTE | 2016-08-28 08:45 | POST-OP PROGRESS NOTE ---
Post Op Subjective Data Patient is post-op day 8 Subjective data: Nausea with food intake. She states that "nothing seems to stay down since last night". Post op objective data Vitals,I&O,and Labs: Vital signs, intake and output,and available lab data for the last 24 hours is as noted below. Vital Signs Date Time Temp Pulse Resp B/P Pulse O2 O2 Flow FiO2 Ox Delivery Rate 08/28 0829 98.3 75 18 138/81 95 ROOM AIR 08/28 0402 98.3 75 16 138/80 97 ROOM AIR 08/27 2040 99.1 81 18 130/73 94 08/27 1945 99.1 81 18 130/73 94 ROOM AIR 08/27 1822 20 08/27 1800 2 08/27 1800 92 ROOM AIR 08/27 1615 99.3 84 20 125/73 98 ROOM AIR 08/27 0943 97.6 75 18 136/77 99 08/27 1500 08/27 2300 08/28 0700 Intake Total 360 103 130 Output Total 265 520 Balance 360 -162 -390 Intake, IV 103 10 Intake, Oral 360 120 Output, 240 Emesis Output, Other 25 20 Output, Urine 500 Laboratory Tests Test Result Date Time Chemistry Sodium (mmoL/L) 142 08/27 0530 Potassium (mmoL/L) 3.4 08/27 0530 Chloride (mmoL/L) 108 08/27 0530 Carbon Dioxide (mmoL/L) 29 08/27 0530 BUN (mg/dL) 13 08/27 0530 Creatinine (mg/dL) 1.8 08/27 0530 Estimated Creat Clear (ML/MIN) 54 08/27 0530 Estimated GFR (MDRD) (ML/MIN) 29 08/27 0530 Glucose (mg/dL) 85 08/27 0530 POC Glucose (mg/dl) 101 08/27 1646 Lactic Acid (MMOL/L) 4.8 08/13 1750 Calcium (mg/dL) 6.8 08/27 0530 Total Bilirubin (mg/dL) 0.3 08/13 1250 AST (U/L) 18 08/13 1250 ALT (U/L) 20 08/13 1250 Alkaline Phosphatase (U/L) 65 08/13 1250 Total Protein (gm/dL) 6.2 08/13 1250 Albumin (gm/dL) 3.2 08/13 1250 Globulin (gm/dL) 3.0 08/13 1250 Albumin/Globulin Ratio 1.1 08/13 1250 Hematology WBC (K/MM3) 7.2 08/26 535 RBC (M/mm3) 3.45 08/26 535 Hgb (g/dL) 9.5 08/26 535 Hct (%) 29.1 08/26 535 MCV (fl) 84.3 08/26 535 RDW (%) 16.0 08/26 535 Plt Count (K/mm3) 395 08/26 535 MPV (fl) 9.0 08/26 535 Gran % (%) 67.7 08/26 535 Gran # (K/mm3) 4.9 08/26 535 Total Counted (#CELLS) 100 08/20 600 Lymphocytes % (%) 14.1 08/26 535 Monocytes % (%) 6.0 08/26 535 Eosinophils % (%) 11.4 08/26 535 Basophils % (%) 0.7 08/26 535 Neutrophils (%) 83 08/20 600 Band Neutrophils (%) 7 08/15 0630 Lymphocytes (Manual) (%) 13 08/20 600 Lymphocytes # (K/mm3) 1.0 08/26 535 Monocytes (Manual) (%) 4 08/20 06 Monocytes # (K/mm3) 0.4 08/26 535 Eosinophils # (K/mm3) 0.8 08/26 535 Eosinophils # (Manual) (%) 1 08/15 0630 Basophils # (K/MM3) 0.1 08/26 535 Platelet Estimate SLIGHT INCREASE 08/20 600 Polychromasia SL. 08/15 0630 Hypochromasia 2+ 08/13 1250 Poikilocytosis SL. 08/15 0630 Macrocytosis 1+ 08/13 1250 PUBS MCHC (g/dl) 32.7 08/26 535 Immunology Antibody Screen NEGATIVE 08/19 820 MCH (pg) 27.6 08/26 535 Miscellaneous Miscellaneous Test POSITIVE 08/19 0820 Misc Test Units BLOOD UNIT RELEASE 08/19 2030 Other Body Source Stl Cyclospora species NOT DETECTED 08/18 1310 Stool Rotavirus (PCR) NOT DETECTED 08/18 131 Stool Campylobacter PCR NOT DETECTED 08/18 1310 Stool Giardia Lamblia PCR NOT DETECTED 08/18 1310 Stl Norovirus GI/GII PCR NOT DETECTED 08/18 1310 Serology Adenovirus (PCR) NOT DETECTED 08/18 1310 C. difficile Tox (PCR) NOT DETECTED 08/18 1310 E. coli (PCR) NOT DETECTED 08/18 1310 Yersinia (PCR) NOT DETECTED 08/18 1310 Toxicology Vancomycin Trough (mcg/mL) 20.9 08/19 06 Random Vancomycin (mcg/mL) 27.4 08/18 0645 Urines Urine Color YELLOW 08/24 173 Urine Appearance CLEAR 08/24 173 Urine pH 6.0 08/24 173 Ur Specific [place] 1.010 08/24 173 Urine Protein (mg/dL) NEGATIVE 08/24 173 Urine Ketones (mg/dL) NEGATIVE 08/24 1730 Urine Blood 1+ 08/24 173 Urine Nitrate NEGATIVE 08/24 173 Urine Bilirubin NEGATIVE 08/24 173 Urine Urobilinogen (E.U./dL) 0.2 08/24 173 Ur Leukocyte Esterase NEGATIVE 08/24 1730 Urine RBC (rbc/hpf) 3-5 08/24 1730 Urine WBC (wbc/hpf) OCC 08/24 1730 Ur Squamous Epith Cells (#/hpf) 3-5 08/24 1730 Urine Bacteria TRACE 08/24 1730 Hyaline Casts (#/lpf) 3-5 08/13 1520 Urine Mucus 3+ 08/20 1435 Urine Glucose NEGATIVE 08/24 1730 Physical Exam VS/I&O Vital Signs Date Time Temp Pulse Resp B/P Pulse O2 O2 Flow FiO2 Ox Delivery Rate 08/28 0829 98.3 75 18 138/81 95 ROOM AIR 08/28 0402 98.3 75 16 138/80 97 ROOM AIR 08/27 2040 99.1 81 18 130/73 94 08/27 1945 99.1 81 18 130/73 94 ROOM AIR 08/27 1822 20 08/27 1800 2 08/27 1800 92 ROOM AIR 08/27 1615 99.3 84 20 125/73 98 ROOM AIR 08/27 0943 97.6 75 18 136/77 99 I&O 08/28 0700 Intake Total 593 Output Total 785 Balance -192 Intake, IV 113 Intake, Oral 480 Output, 240 Emesis Output, Other 45 Output, Urine 500 Exam General appearance no acute distress Respiratory no distress Cardiovascular regular rate and rhythm Abdomen non-tender, soft Post op patient plan Diagnoses: Nausea Deconditioning Renal insufficiency Complicated diverticulitis with postoperative leak-stable status post reoperation with loop ileostomy Plan: IV fluids, increase Phenergan, AM labs, PT/OT This inpt stay is expected to cross 2 MNs from start of care Yes Antibiotic Stewardship (2) Infxn that will respond? Yes Right drug,dose,and route? Yes More targeted antbx? No at [id number]
[2016-08-28 09:37] LABS: HEMOGLOBIN 9.8 g/dL (12.2-16.2); LYMPH % 15.3 % (10-50.0)
[2016-08-28 10:16] VITALS: BP 138/81
[2016-08-28 15:43] VITALS: BP 137/82
[2016-08-28 20:05] VITALS: BP 142/86
[2016-08-29 03:50] VITALS: BP 147/78
[2016-08-29 05:00] LABS: HEMOGLOBIN 9.6 g/dL (12.2-16.2); LYMPH # 1.5 K/mm3 (0.7-4.5); LYMPH % 20.7 % (10-50.0)
--- NOTE | 2016-08-29 08:16 | POST-OP PROGRESS NOTE ---
See Addendum Post Op Subjective Data Patient is post-op day 9 Subjective data: Significant nausea and intermittent emesis over the last 24 hours. She refused nasogastric tube, but feels "much better this morning". She states that she is "taking things slowly". Post op objective data Vitals,I&O,and Labs: Vital signs, intake and output,and available lab data for the last 24 hours is as noted below. Vital Signs Date Time Temp Pulse Resp B/P Pulse O2 O2 Flow FiO2 Ox Delivery Rate 08/29 0350 98.7 71 18 147/78 97 ROOM AIR 08/28 2201 18 08/28 2142 98.5 74 18 142/86 97 08/28 2005 98.5 74 18 142/86 97 ROOM AIR 08/28 1843 20 08/28 1543 99.0 81 20 137/82 97 ROOM AIR 08/28 1016 98.3 75 18 138/81 95 08/28 0829 98.3 75 18 138/81 95 ROOM AIR 08/28 1500 08/28 2300 08/29 0700 Intake Total 120 2906 Output Total 1500 30 Balance 120 -1500 2876 Intake, IV 2906 Intake, Oral 120 Output, 1500 Emesis Output, Other 30 Output, Stool Laboratory Tests Test Result Date Time Chemistry Sodium (mmoL/L) 141 08/29 0440 Potassium (mmoL/L) 3.2 08/29 0440 Chloride (mmoL/L) 107 08/29 0440 Carbon Dioxide (mmoL/L) 29 08/29 0440 BUN (mg/dL) 12 08/29 0440 Creatinine (mg/dL) 1.8 08/29 044 Estimated Creat Clear (ML/MIN) 54 08/29 0440 Estimated GFR (MDRD) (ML/MIN) 29 08/29 0440 Glucose (mg/dL) 92 08/29 0440 POC Glucose (mg/dl) 114 08/28 2111 Lactic Acid (MMOL/L) 4.8 08/13 1750 Calcium (mg/dL) 6.8 08/29 0440 Magnesium (mg/dL) 1.2 08/28 0900 Total Bilirubin (mg/dL) 0.3 08/13 1250 AST (U/L) 18 08/13 1250 ALT (U/L) 20 08/13 1250 Alkaline Phosphatase (U/L) 65 12/16 1250 Total Protein (gm/dL) 6.2 08/13 1250 Albumin (gm/dL) 3.2 08/13 1250 Globulin (gm/dL) 3.0 08/13 1250 Albumin/Globulin Ratio 1.1 08/13 1250 Hematology WBC (K/MM3) 7.3 08/29 0440 RBC (M/mm3) 3.47 08/29 0440 Hgb (g/dL) 9.6 08/29 0440 Hct (%) 29.4 08/29 0440 MCV (fl) 84.7 08/29 0440 RDW (%) 16.5 08/29 0440 Plt Count (K/mm3) 446 08/29 0440 MPV (fl) 8.7 08/29 0440 Gran % (%) 65.8 08/29 0440 Gran # (K/mm3) 4.8 08/29 0440 Total Counted (#CELLS) 100 08/20 0600 Lymphocytes % (%) 20.7 08/29 0440 Monocytes % (%) 6.6 08/29 0440 Eosinophils % (%) 6.1 08/29 0440 Basophils % (%) 0.7 08/29 0440 Neutrophils (%) 83 08/20 0600 Band Neutrophils (%) 7 08/15 0630 Lymphocytes (Manual) (%) 13 08/20 0600 Lymphocytes # (K/mm3) 1.5 08/29 0440 Monocytes (Manual) (%) 4 08/20 0600 Monocytes # (K/mm3) 0.5 08/29 0440 Eosinophils # (K/mm3) 0.5 08/29 0440 Eosinophils # (Manual) (%) 1 08/15 0630 Basophils # (K/MM3) 0.1 08/29 0440 Platelet Estimate SLIGHT INCREASE 08/20 06 Polychromasia SL. 08/15 0630 Hypochromasia 2+ 08/13 1250 Poikilocytosis SL. 08/15 0630 Macrocytosis 1+ 08/13 1250 PUBS MCHC (g/dl) 32.7 08/29 0440 Immunology Antibody Screen NEGATIVE 08/19 820 MCH (pg) 27.7 08/29 0440 Miscellaneous Miscellaneous Test POSITIVE 08/19 0820 Misc Test Units BLOOD UNIT RELEASE 08/19 2030 Other Body Source Stl Cyclospora species NOT DETECTED 12/21 1310 Stool Rotavirus (PCR) NOT DETECTED 08/18 1310 Stool Campylobacter PCR NOT DETECTED 08/18 1310 Stool Giardia Lamblia PCR NOT DETECTED 08/18 1310 Stl Norovirus GI/GII PCR NOT DETECTED 08/18 1310 Serology Adenovirus (PCR) NOT DETECTED 08/18 1310 C. difficile Tox (PCR) NOT DETECTED 08/18 1310 E. coli (PCR) NOT DETECTED 08/18 1310 Yersinia (PCR) NOT DETECTED 08/18 1310 Toxicology Vancomycin Trough (mcg/mL) 20.9 08/19 0630 Random Vancomycin (mcg/mL) 27.4 08/18 0645 Urines Urine Color YELLOW 08/24 1730 Urine Appearance CLEAR 08/24 1730 Urine pH 6.0 08/24 173 Ur Specific [place] 1.010 08/24 173 Urine Protein (mg/dL) NEGATIVE 08/24 173 Urine Ketones (mg/dL) NEGATIVE 08/24 173 Urine Blood 1+ 08/24 173 Urine Nitrate NEGATIVE 08/24 173 Urine Bilirubin NEGATIVE 08/24 1730 Urine Urobilinogen (E.U./dL) 0.2 08/24 173 Ur Leukocyte Esterase NEGATIVE 08/24 1730 Urine RBC (rbc/hpf) 3-5 08/24 1730 Urine WBC (wbc/hpf) OCC 08/24 1730 Ur Squamous Epith Cells (#/hpf) 3-5 08/24 1730 Urine Bacteria TRACE 08/24 1730 Hyaline Casts (#/lpf) 3-5 08/13 1520 Urine Mucus 3+ 08/20 1435 Urine Glucose NEGATIVE 08/24 1730 Physical Exam VS/I&O Vital Signs Date Time Temp Pulse Resp B/P Pulse O2 O2 Flow FiO2 Ox Delivery Rate 08/29 0350 98.7 71 18 147/78 97 ROOM AIR 08/28 2201 18 08/28 2142 98.5 74 18 142/86 97 08/28 2005 98.5 74 18 142/86 97 ROOM AIR 08/28 1843 20 08/28 1543 99.0 81 20 137/82 97 ROOM AIR 08/28 1016 98.3 75 18 138/81 95 08/28 0829 98.3 75 18 138/81 95 ROOM AIR I&O 08/29 0700 Intake Total 3026 Output Total 1530 Balance 1496 Intake, IV 2906 Intake, Oral 120 Output, 1500 Emesis Output, Other 30 Output, Stool Exam General appearance no acute distress Respiratory no distress Cardiovascular regular rate and rhythm Abdomen no distention (ostomy with good output), soft Post op patient plan Diagnoses: Ileus versus enteritis-improving Deconditioning-working with physical therapy Renal insufficiency-stable Dehydration-IV fluids restarted yesterday Diverticulitis with postop leak versus immediately recurrent diverticulitis- stable postoperatively Plan: Ambulate, Antibiotics, DVT prophylaxis This inpt stay is expected to cross 2 MNs from start of care Yes Additional data: The patient's Emmanuel-Yang output is fairly minimal. She has been on IV antibiotics for an extended period of time and will likely be able to discontinue antibiotics soon. However, repeat CT scan prior to discontinuing her Emmanuel-Yang drain and prior to discontinuing antibiotics is warranted. Although she is not currently nauseous, she did have significant nausea with intermittent emesis over the last 24 hours and this is likely secondary to ileus versus enteritis. If she does not continue to show improvement, she will most likely need continued IV fluids, likely nasogastric decompression, and likely TPN secondary to her declining nutritional status. Antibiotic Stewardship (2) Infxn that will respond? Yes Right drug,dose,and route? Yes More targeted antbx? No at 0815
[2016-08-29 08:29] VITALS: BP 147/78
[2016-08-29 08:30] VITALS: BP 141/76
--- NOTE | 2016-08-29 08:32 | ACUTE CARE PROGRESS NOTE (QUA) ---
Progress Notes Subjective Date 08/29/16 Time 0829 Note doing ok Patient/family reports: feeling better Nursing reports: no complaints Objective Findings Last VS-Temp:98.7 B/P:147/78 Pulse:71 Resp:18 SaO2:97 ROOM AIR Last weight lbs:232 oz:8 K.46 Method:Bed Scales Exam General appearance: awake Eyes: PERRLA ENT: dry mucous membranes Neck: no JVD Cardiovascular: regular rate & rhythm Respiratory: no respiratory distress Extremities: moves all Musculoskeletal: equal muscle strength Skin: dry Neuro: alert Reviewed: allergies, medications, lab results Assessment/Plan Problem List 1. Diverticulitis 2. Renal insufficiency 3. Abdominal pain Patient condition Improving Plan: continue current care This inpt stay is expected to cross 2 MNs from start of care Yes Comments: slow improvement and still with dec mobility and strenght and has po intake fair but overall better and renal function better Antibiotic Stewardship (2) Infxn that will respond? Yes Right drug,dose,and route? Yes More targeted antbx? No at 0831
--- NOTE | 2016-08-29 08:51 | RADIOLOGY REPORT PS360 ---
ABDOMEN-FLAT UPRIGHT COMPARISON: CT scan abdomen pelvis 08/20/2016 HISTORY: Nausea and vomiting TECHNIQUE: KUB and upright abdomen FINDINGS: The patient is very large and not entirely included on the images there appears be small bilateral pleural effusions. There is a normal amount gas within the stomach. Minimal scattered small bowel gas is noted. The talus degraded due to the patient's large size. Is multilevel degenerative changes of lumbar spine. There is opaque tubing projecting over the upper mid pelvis. IMPRESSION: Less than satisfactory evaluation primarily due to the patient's large size, there are no findings to suggest obstruction
[2016-08-29 12:30] VITALS: BP 124/77
[2016-08-29 16:18] VITALS: BP 136/80
[2016-08-29 20:56] VITALS: BP 144/83
[2016-08-30 04:36] VITALS: BP 138/77
[2016-08-30 07:45] VITALS: BP 119/73
--- NOTE | 2016-08-30 08:59 | POST-OP PROGRESS NOTE ---
Post Op Subjective Data Patient is post-op other (10) Subjective data: No complaints. Feels "quite a bit better" this morning Post op objective data Vitals,I&O,and Labs: Vital signs, intake and output,and available lab data for the last 24 hours is as noted below. Vital Signs Date Time Temp Pulse Resp B/P Pulse O2 O2 Flow FiO2 Ox Delivery Rate 08/30 0745 97.4 87 18 119/73 96 ROOM AIR 08/30 0436 98.2 77 16 138/77 95 ROOM AIR 08/30 0435 93 ROOM AIR 08/29 2122 18 08/29 2056 98.6 74 18 144/83 100 ROOM AIR 08/29 1954 99 08/29 1658 18 08/29 1618 99.0 65 18 136/80 99 ROOM AIR 08/29 1230 98.6 74 20 124/77 99 ROOM AIR 08/29 1500 08/29 2300 08/30 0700 Intake Total 240 1589 Output Total 150 Balance 240 1589 -150 Intake, IV 1589 Intake, Oral 240 Output, Other 150 Output, Stool Laboratory Tests Test Result Date Time Chemistry Sodium (mmoL/L) 141 08/30 0500 Potassium (mmoL/L) 3.6 08/30 0500 Chloride (mmoL/L) 108 08/30 0500 Carbon Dioxide (mmoL/L) 26 08/30 0500 BUN (mg/dL) 9 08/30 0500 Creatinine (mg/dL) 1.7 08/30 0500 Estimated Creat Clear (ML/MIN) 57 08/30 0500 Estimated GFR (MDRD) (ML/MIN) 30 08/30 0500 Glucose (mg/dL) 87 08/30 0500 POC Glucose (mg/dl) 96 08/29 202 Lactic Acid (MMOL/L) 4.8 08/13 1750 Calcium (mg/dL) 6.6 08/30 0500 Magnesium (mg/dL) 1.2 08/28 0900 Total Bilirubin (mg/dL) 0.3 08/13 1250 AST (U/L) 18 08/13 1250 ALT (U/L) 20 08/13 1250 Alkaline Phosphatase (U/L) 65 08/13 1250 Total Protein (gm/dL) 6.2 08/13 1250 Albumin (gm/dL) 3.2 08/13 1250 Globulin (gm/dL) 3.0 08/13 1250 Albumin/Globulin Ratio 1.1 08/13 1250 Hematology WBC (K/MM3) 7.3 08/29 0440 RBC (M/mm3) 3.47 08/29 0440 Hgb (g/dL) 9.6 08/29 0440 Hct (%) 29.4 08/29 0440 MCV (fl) 84.7 08/29 0440 RDW (%) 16.5 08/29 0440 Plt Count (K/mm3) 446 08/29 0440 MPV (fl) 8.7 08/29 0440 Gran % (%) 65.8 08/29 0440 Gran # (K/mm3) 4.8 08/29 044 Total Counted (#CELLS) 100 08/20 06 Lymphocytes % (%) 20.7 08/29 0440 Monocytes % (%) 6.6 08/29 0440 Eosinophils % (%) 6.1 08/29 0440 Basophils % (%) 0.7 08/29 0440 Neutrophils (%) 83 08/20 06 Band Neutrophils (%) 7 08/15 0630 Lymphocytes (Manual) (%) 13 08/20 06 Lymphocytes # (K/mm3) 1.5 08/29 0440 Monocytes (Manual) (%) 4 08/20 0600 Monocytes # (K/mm3) 0.5 08/29 0440 Eosinophils # (K/mm3) 0.5 08/29 0440 Eosinophils # (Manual) (%) 1 08/15 0630 Basophils # (K/MM3) 0.1 08/29 0440 Platelet Estimate SLIGHT INCREASE 08/20 600 Polychromasia SL. 08/15 0630 Hypochromasia 2+ 08/13 1250 Poikilocytosis SL. 08/15 0630 Macrocytosis 1+ 08/13 1250 PUBS MCHC (g/dl) 32.7 08/29 0440 Immunology Antibody Screen NEGATIVE 08/19 820 MCH (pg) 27.7 08/29 044 Miscellaneous Miscellaneous Test POSITIVE 08/19 0820 Misc Test Units BLOOD UNIT RELEASE 08/19 2030 Other Body Source Stl Cyclospora species NOT DETECTED 08/18 1310 Stool Rotavirus (PCR) NOT DETECTED 08/18 1310 Stool Campylobacter PCR NOT DETECTED 08/18 1310 Stool Giardia Lamblia PCR NOT DETECTED 08/18 1310 Stl Norovirus GI/GII PCR NOT DETECTED 08/18 1310 Serology Adenovirus (PCR) NOT DETECTED 08/18 1310 C. difficile Tox (PCR) NOT DETECTED 08/18 1310 E. coli (PCR) NOT DETECTED 08/18 1310 Yersinia (PCR) NOT DETECTED 08/18 1310 Toxicology Vancomycin Trough (mcg/mL) 20.9 08/19 0630 Random Vancomycin (mcg/mL) 27.4 08/18 0645 Urines Urine Color YELLOW 08/24 173 Urine Appearance CLEAR 08/24 173 Urine pH 6.0 08/24 173 Ur Specific [place] 1.010 08/24 173 Urine Protein (mg/dL) NEGATIVE 08/24 173 Urine Ketones (mg/dL) NEGATIVE 08/24 1730 Urine Blood 1+ 08/24 173 Urine Nitrate NEGATIVE 08/24 173 Urine Bilirubin NEGATIVE 08/24 173 Urine Urobilinogen (E.U./dL) 0.2 08/24 173 Ur Leukocyte Esterase NEGATIVE 08/24 1730 Urine RBC (rbc/hpf) 3-5 08/24 1730 Urine WBC (wbc/hpf) OCC 08/24 1730 Ur Squamous Epith Cells (#/hpf) 3-5 08/24 1730 Urine Bacteria TRACE 08/24 1730 Hyaline Casts (#/lpf) 3-5 08/13 1520 Urine Mucus 3+ 08/20 1435 Urine Glucose NEGATIVE 08/24 1730 Physical Exam VS/I&O Vital Signs Date Time Temp Pulse Resp B/P Pulse O2 O2 Flow FiO2 Ox Delivery Rate 08/30 0745 97.4 87 18 119/73 96 ROOM AIR 08/30 0436 98.2 77 16 138/77 95 ROOM AIR 08/30 0435 93 ROOM AIR 08/292 18 08/29 2056 98.6 74 18 144/83 100 ROOM AIR 08/29 1954 99 08/29 1658 18 08/29 1618 99.0 65 18 136/80 99 ROOM AIR 08/29 1230 98.6 74 20 124/77 99 ROOM AIR I&O 08/30 0700 Intake Total 1829 Output Total 150 Balance 1679 Intake, IV 1589 Intake, Oral 240 Output, Other 150 Output, Stool Exam General appearance no acute distress Respiratory no distress Cardiovascular regular rate and rhythm Abdomen non-tender, soft Post op patient plan Diagnoses: Deconditioning-slowly improving Renal insufficiency-slowly improving Nausea/vomiting-resolved Diverticulitis with postoperative leak versus acute recurrence-doing well status post diverting ostomy Plan: Ambulate, Antibiotics, DVT prophylaxis This inpt stay is expected to cross 2 MNs from start of care Yes Additional data: The patient's IV antibiotics will be discontinued. She will be placed on Augmentin with likely discontinuation of Augmentin after her repeat CT scan. Her Emmanuel-Yang drain will remain in place until her CT scan is completed (likely within one week of today). She is showing overall signs of improvement and will possibly be stable for discharge home later today. She will possibly require home health for additional care with regard to her ostomy, midline wound, and Emmanuel-Yang drain. Antibiotic Stewardship (2) Infxn that will respond? Yes Right drug,dose,and route? Yes More targeted antbx? No at [id number]
[2016-08-30 09:45] VITALS: BP 128/79
[2016-08-30 15:42] VITALS: BP 128/79
[2016-08-30] MEDS ORDERED: PERCOCET1 TAB PO (16:20)
[2016-08-30] MEDS ORDERED: AUGMENTIN 875-1 EACH PO (16:20)
--- NOTE | 2016-08-30 16:50 | Discharge Summary Report ---
General Admit date: 08/13/16 Discharge date: 08/30/16 Admission Dx: Leukocytosis Diverticulitis with recent sigmoid resection Discharge Dx: Diverticulitis with postoperative leak versus immediately recurrent diverticulitis Renal insufficiency Deconditioning Hospital course: This is a 61-year-old female who presented to the emergency department with episodic abdominal pain. She was found to have leukocytosis with a white blood cell count of over 26,000. She had been discharged 2 days prior to this presentation after undergoing sigmoid resection and partial small bowel resection for complicated diverticulitis. Please see initial operative report from August 04 and original discharge summary from prior hospitalization. During initial evaluation she stated that she "felt much better". She was admitted and placed on IV antibiotics with improvement in her white blood cell count over the next few days. She was also found to have acute renal insufficiency as her creatinine increased over 3. She had no significant improvement with IV fluid boluses and the Family Practice service was consulted for further evaluation. Some adjustments in her medication dosing were made and she continued to show slow improvement. On August 20 she developed acute exacerbation of abdominal pain after initially progressing very well. Her white blood cell count was also found to be once again elevated after returning to normal. A CT scan revealed fairly large amount of free air and some fluid in the pelvis. She was taken back to the operating room where he small otomy was noted just proximal to the colonic anastomosis. This was oversewn in her abdominal cavity was thoroughly washed out. A diverting loop ileostomy was created. Please see operative report for greater detail. Please note that the anastomosis was notably intact and this defect was just proximal to the anastomosis. Thus, she was considered to have either an anastomotic breakdown or more likely and immediately recurrent episode of diverticulitis. She continued to progress slowly over the ensuing days. She did have an ileus as was expected. Her diet was slowly advanced and she remained afebrile with stable and normal vital signs. Her renal function continued to improve. Physical therapy was consulted for deconditioning and she required further therapy until deemed appropriate for discharge on postoperative day 10. Consultants: Consultants: family medicine Condition at discharge: improved Problem List Medical Problems Abdominal pain Diverticulitis Diverticulitis of large intestine Hypokalemia Hypothyroidism Leukocytosis Perforated diverticulum of large intestine Renal insufficiency Allergies Coded Allergies: adhesive tape (Intermediate, I-RASH 08/20/16) hydrocodone (Intermediate, I-ITCHING 08/20/16) Med Rec DC summary Medications Discontinued Scripts Levofloxacin (Levaquin 500MG) 500 MG PO DAILY #7 TAB Prov: 08/11/16 DC: 08/30/16 1615 METRONIDAZOLE (Metronidazole) 500 MG PO TID #21 TAB Prov: 08/11/16 DC: 08/30/16 1615 Reported Medications ACIDOPH/L.BULG/BIF.B/S.THERMOP (Bacid Caplet) 1 TAB PO BID Nystatin (Nystatin 1 Ml) 1 CASEY TP DAILYP PRN RASH Omeprazole (Omeprazole 20MG) 20 MG PO DAILY CHOLECALCIFEROL (VITAMIN D3) (Vitamin D) 5,000 IUNITS PO DAILY BISOPROLOL FUMARATE (Bisoprolol 5MG) 2.5 MG PO DAILY #90 FENOFIBRATE NANOCRYSTALLIZED (Fenofibrate) 145 MG PO DAILY #90 Levothyroxine Sodium 0.15 MG PO DAILY #15 Discontinued Reported Medications Fluconazole (Diflucan 100MG) 100 MG PO DAILY #30 DC: 08/30/16 1616 Txs and Procedures Treatments and Procedures: Reopen laparotomy with diverting loop ileostomy on August 20, 2016 Labs: Laboratory Tests 08/30/16 0500: Sodium 141, Potassium 3.6, Chloride 108 H, Carbon Dioxide 26, BUN 9, Creatinine 1.7 H, Estimated Creat Clear 57, Estimated GFR (MDRD) 30 L, Glucose 87, Calcium 6.6 L 08/29/16 2025: POC Glucose 96 08/29/16 1703: POC Glucose 86 08/29/16 0858: POC Glucose 104 08/29/16 0440: Sodium 141, Potassium 3.2 L, Chloride 107, Carbon Dioxide 29, BUN 12, Creatinine 1.8 H, Estimated Creat Clear 54, Estimated GFR (MDRD) 29 L, Glucose 92, Calcium 6.8 L, WBC 7.3, RBC 3.47 L, Hgb 9.6 L, Hct 29.4 L, MCV 84.7, RDW 16.5, Plt Count 446 H, MPV 8.7, Gran % 65.8, Gran # 4.8, Lymphocytes % 20.7, Monocytes % 6.6, Eosinophils % 6.1, Basophils % 0.7, Lymphocytes # 1.5, Monocytes # 0.5, Eosinophils # 0.5 H, Basophils # 0.1, PUBS MCHC 32.7, MCH 27.7 08/28/16 2111: POC Glucose 114 H 08/28/16 1731: POC Glucose 111 H 08/28/16 1228: POC Glucose 87 08/28/16 0900: Magnesium 1.2 L 08/28/16 0900: Sodium 142, Potassium 3.1 L, Chloride 107, Carbon Dioxide 29, BUN 14, Creatinine 1.9 H, Estimated Creat Clear 51, Estimated GFR (MDRD) 27 L, Glucose 91, Calcium 7.1 L, WBC 6.8, RBC 3.57 L, Hgb 9.8 L, Hct 30.3 L, MCV 84.8, RDW 16.3, Plt Count 431 H, MPV 9.7, Gran % 71.4, Gran # 4.8, Lymphocytes % 15.3, Monocytes % 6.5, Eosinophils % 6.1, Basophils % 0.8, Lymphocytes # 1.0, Monocytes # 0.4, Eosinophils # 0.4, Basophils # 0.1, PUBS MCHC 32.5, MCH 27.5 08/28/16 0852: POC Glucose 98 at 1642
[2016-08-30 19:30] VITALS: BP 142/71
[2016-08-30 19:45] VITALS: BP 142/71
== END 2016-08-30 20:13 | disposition home or self-care (01) | DRG 330 ==
LOC: ER 12:06 → 2ND 16:13
PROVIDERS: Emergency Medicine; Surgery
PROC: 0DQN0ZZ Repair Sigmoid Colon, Open Approach (ICD-10-PCS; 2016-08-20)
PROC: 0D1B0Z4 Bypass Ileum to Cutaneous, Open Approach (ICD-10-PCS; principal; 2016-08-20 14:30)
DX: K57.20 Diverticulitis of large intestine with perforation and abscess without bleeding (principal); T81.32XA Disruption of internal operation (surgical) wound, not elsewhere classified, initial encounter; K91.3 Postprocedural intestinal obstruction
CPT/HCPCS: C1751; J0131; J0330; J1335; J2405; J2543; J2710; P9016; Q9967

== ENCOUNTER 2016-09-20 21:30 | Emergency (ER) | payer BC ==
[~2016-09-20] VITALS: Ht 170.2 cm; Wt 80.7 kg
[~2016-09-20 21:30] MED LIST changes: +AUGMENTIN 875-1 EACH PO; +LEVOTHYROXINE0.15 M1 PO; +PERCOCET1 TAB PO; +VITAMIN D31000 IU PO
--- NOTE | 2016-09-20 22:23 | Emergency Room Report ---
History of Present Illness Time Seen by [id number] Presenting Problem in Triage Pt arrived:Wheelchair Presenting Problem:REPORTS COLOSTOMY PLACE LAST MONTH. HAVING PROBLEMS LEAKING, SKIN REDDNESS AND EXCORIATED. 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 N Clinical Suspician of Infection? N Mental Status: 1 - Regular (Normal Baseline) Sepsis Risk:Low Sepsis Risk Have you (or family members/close friends) recently traveled outside the [place]? N If Yes, where/when: Have you had exposure to infectious disease within the past month? N TB? Other? Specify: Source patient, RN notes reviewed, family, old records Exam Limitations no limitations Comment colostomy area inflamed and diff to keep colostomy bag on - no other c/o Cardiac Chest Pain Chest pain indicative of cardiac No Timing/Duration this evening Severity moderate ALLERGIES Coded Allergies: adhesive tape (Intermediate, I-RASH 08/20/16) hydrocodone (Intermediate, I-ITCHING 08/20/16) Home Medications Active Scripts OXYCODONE HCL/ACETAMINOPHEN (Percocet 5-325 MG Tablet) 1-2 TAB PO Q4HP PRN pain #23 TAB Prov: 08/30/16 Amoxicillin/Potassium Clav (Augmentin 875-125 Tablet) 1 EACH PO BID #20 TAB Prov: 08/30/16 Reported Medications ACIDOPH/L.BULG/BIF.B/S.THERMOP (Bacid Caplet) 1 TAB PO BID Nystatin (Nystatin 1 Ml) 1 CASEY TP DAILYP PRN RASH Omeprazole (Omeprazole 20MG) 20 MG PO DAILY CHOLECALCIFEROL (VITAMIN D3) (Vitamin D) 5,000 IUNITS PO DAILY BISOPROLOL FUMARATE (Bisoprolol 5MG) 2.5 MG PO DAILY #90 FENOFIBRATE NANOCRYSTALLIZED (Fenofibrate) 145 MG PO DAILY #90 Levothyroxine Sodium 0.15 MG PO DAILY #15 History Medical History General CAD? No Angina: No DC: No Hypertension? Yes Hyperlipidemia? Yes CHF? No DVT? No PE? No COPD? No Asthma? No Anemia? No GERD? No Gastric ulcers? No GI Bleed? No Hernia? No Thyroid Problems? Yes Hypothyroidism? No CVA? No Seizures? No Diabetes? No Renal Insuffiency? No End Stage Renal Disease? No UTI? No Stones? No BPH? No GB Disease: No Nephritic Syndrome? No Asplenia? No Hepatitis? No Sickle Cell Disease? No Arthritis? Yes Migraines? No Cataracts? No Glaucoma? No MRSA? No HIV? No TB? No Anxiety? No Depression? No Cancer? Yes Site: THYROID Immunization Hx DT/Tetanus 04/22/2014 Flu 2015-FSN Pneumonia Refuses Surgical Hx Previous Surgery?Y HYST JOINT FUSION-FINGER RK BLADDER TACK,TVT WED SINUS TONSIL/ADNOID REMOVAL THYROIDECTOMY PARATHYROIDECTOMY WISDOM TEETH TENDON REPAIR FINGER PELVIC BASAL CELL CARCINOMA TIGH RALPH BUNIONECTOMY VAGINAL SUSPENSION COLOSTOMY Family History Family Hx Diabetes Yes CAD Yes Hypertension Yes Hyperlipidemia Yes Cancer Yes TB No Social History Smoking Hx Smoker: Never Smoker Tobacco: No Packs/day N/A Alcohol Alcohol: No Drugs none Review of Systems All Other Systems Reviewed and Negative Constitutional denies fever Eyes denies drainage ENT denies: ear pain, epistaxis, throat pain. Respiratory denies cough, denies shortness of breath, denies wheezing Cardiovascular denies chest pain, denies palpitations, denies syncope Gastrointestinal denies abdominal pain, denies diarrhea, denies vomiting Genitourinary denies: dysuria, frequency. Musculoskeletal denies joint swelling Skin see HPI, other Psychiatric/Neurological denies seizure Physical Exam Vital Signs Vital Signs Date Time Temp Pulse Resp B/P Pulse O2 O2 Flow FiO2 Ox Delivery Rate 09/20 2222 89 18 129/59 96 09/20 2144 98.6 89 18 146/86 96 - WBC >12,000 or <4,000 or 10% bands? 2 or more SIRS Criteria Met? B/P:129/59 MAP:106 Creatinine >2.0? UA output<0.5ml/kg/hr for 2 hrs? Platelet count >100,000? Lactate >2.0mmol/1? INR >1.2 or PTT > than 60 sec? Evidence of Organ Dysfunction? Provider documented clinical suspician of infection? N Sepsis Criteria Count: 0 Sepsis Risk: Low Sepsis Risk General Appearance no apparent distress Eye Exam - bilateral eye PERRL Ear, Nose, Throat normal ENT inspection Neck supple Respiratory Status No: respiratory distress. 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 No Departure Departure Time of Disposition 2343 Disposition DC Home or Self Care(routine) Clinical Impression Primary Impression: Colostomy complication Condition STABLE Referrals Milady MUSA,Buck Floyd (Family) Patient Instructions DI for Colostomy or Ileostomy Reversal Additional Instructions keep appt with surg Discharge Counseling Counseled pt/family regarding diagnosis, test results, follow up needs ED Critical Care Critical Care No at [phone]
--- NOTE | 2016-09-20 22:23 | Emergency Room Report ---
History of Present Illness Time Seen by [id number] Presenting Problem in Triage Pt arrived:Wheelchair Presenting Problem:REPORTS COLOSTOMY PLACE LAST MONTH. HAVING PROBLEMS LEAKING, SKIN REDDNESS AND EXCORIATED. 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 N Clinical Suspician of Infection? N Mental Status: 1 - Regular (Normal Baseline) Sepsis Risk:Low Sepsis Risk Have you (or family members/close friends) recently traveled outside the [place]? N If Yes, where/when: Have you had exposure to infectious disease within the past month? N TB? Other? Specify: Source patient, RN notes reviewed, family, old records Exam Limitations no limitations Comment colostomy area inflamed and diff to keep colostomy bag on - no other c/o Cardiac Chest Pain Chest pain indicative of cardiac No Timing/Duration this evening Severity moderate ALLERGIES Coded Allergies: adhesive tape (Intermediate, I-RASH 08/20/16) hydrocodone (Intermediate, I-ITCHING 08/20/16) Home Medications Active Scripts OXYCODONE HCL/ACETAMINOPHEN (Percocet 5-325 MG Tablet) 1-2 TAB PO Q4HP PRN pain #23 TAB Prov: 08/30/16 Amoxicillin/Potassium Clav (Augmentin 875-125 Tablet) 1 EACH PO BID #20 TAB Prov: 08/30/16 Reported Medications ACIDOPH/L.BULG/BIF.B/S.THERMOP (Bacid Caplet) 1 TAB PO BID Nystatin (Nystatin 1 Ml) 1 CASEY TP DAILYP PRN RASH Omeprazole (Omeprazole 20MG) 20 MG PO DAILY CHOLECALCIFEROL (VITAMIN D3) (Vitamin D) 5,000 IUNITS PO DAILY BISOPROLOL FUMARATE (Bisoprolol 5MG) 2.5 MG PO DAILY #90 FENOFIBRATE NANOCRYSTALLIZED (Fenofibrate) 145 MG PO DAILY #90 Levothyroxine Sodium 0.15 MG PO DAILY #15 History Medical History General CAD? No Angina: No OR: No Hypertension? Yes Hyperlipidemia? Yes CHF? No DVT? No PE? No COPD? No Asthma? No Anemia? No GERD? No Gastric ulcers? No GI Bleed? No Hernia? No Thyroid Problems? Yes Hypothyroidism? No CVA? No Seizures? No Diabetes? No Renal Insuffiency? No End Stage Renal Disease? No UTI? No Stones? No BPH? No GB Disease: No Nephritic Syndrome? No Asplenia? No Hepatitis? No Sickle Cell Disease? No Arthritis? Yes Migraines? No Cataracts? No Glaucoma? No MRSA? No HIV? No TB? No Anxiety? No Depression? No Cancer? Yes Site: THYROID Immunization Hx DT/Tetanus 04/22/2014 Flu 2015-FSN Pneumonia Refuses Surgical Hx Previous Surgery?Y HYST JOINT FUSION-FINGER RK BLADDER TACK,TVT WED SINUS TONSIL/ADNOID REMOVAL THYROIDECTOMY PARATHYROIDECTOMY WISDOM TEETH TENDON REPAIR FINGER PELVIC BASAL CELL CARCINOMA TIGH RALPH BUNIONECTOMY VAGINAL SUSPENSION COLOSTOMY Family History Family Hx Diabetes Yes CAD Yes Hypertension Yes Hyperlipidemia Yes Cancer Yes TB No Social History Smoking Hx Smoker: Never Smoker Tobacco: No Packs/day N/A Alcohol Alcohol: No Drugs none Review of Systems All Other Systems Reviewed and Negative Constitutional denies fever Eyes denies drainage ENT denies: ear pain, epistaxis, throat pain. Respiratory denies cough, denies shortness of breath, denies wheezing Cardiovascular denies chest pain, denies palpitations, denies syncope Gastrointestinal denies abdominal pain, denies diarrhea, denies vomiting Genitourinary denies: dysuria, frequency. Musculoskeletal denies joint swelling Skin see HPI, other Psychiatric/Neurological denies seizure Physical Exam Vital Signs Vital Signs Date Time Temp Pulse Resp B/P Pulse O2 O2 Flow FiO2 Ox Delivery Rate 09/20 2222 89 18 129/59 96 09/20 2144 98.6 89 18 146/86 96 - WBC >12,000 or <4,000 or 10% bands? 2 or more SIRS Criteria Met? B/P:129/59 MAP:106 Creatinine >2.0? UA output<0.5ml/kg/hr for 2 hrs? Platelet count >100,000? Lactate >2.0mmol/1? INR >1.2 or PTT > than 60 sec? Evidence of Organ Dysfunction? Provider documented clinical suspician of infection? N Sepsis Criteria Count: 0 Sepsis Risk: Low Sepsis Risk General Appearance no apparent distress Eye Exam - bilateral eye PERRL Ear, Nose, Throat normal ENT inspection Neck supple Respiratory Status No: respiratory distress. 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 No Departure Departure Time of Disposition 2343 Disposition DC Home or Self Care(routine) Clinical Impression Primary Impression: Colostomy complication Condition STABLE Referrals Milady MUSA,Buck Floyd (Family) Patient Instructions DI for Colostomy or Ileostomy Reversal Additional Instructions keep appt with surg Discharge Counseling Counseled pt/family regarding diagnosis, test results, follow up needs ED Critical Care Critical Care No at 234
[2016-09-20 23:51] VITALS: BP 142/76
== END 2016-09-20 23:54 | disposition home or self-care (01) ==
LOC: ER 21:30
DX: R60.9 Edema, unspecified (principal); Y83.3 Surgical operation with formation of external stoma as the cause of abnormal reaction of the patient, or of later complication, without mention of misadventure at the time of the procedure; Y73.8 Miscellaneous gastroenterology and urology devices associated with adverse incidents, not elsewhere classified; Y92.009 Unspecified place in unspecified non-institutional (private) residence as the place of occurrence of the external cause; I10 Essential (primary) hypertension

== ENCOUNTER → 2017-05-17 | Outpatient (CLI) | payer BC ==
[~2017-05-17] MED LIST changes: +ALLEGRA ALLERGY60 MG; +CALCIUM500 M1; +CLIMARA0.025 MG/2; +FISH OIL + D31 EACH; +FULL CIRCLE BIOT5 MG; +LEADER MAGNESIU1 TAB
== END ==
LOC: LAB 16:26
DX: E83.51 Hypocalcemia (principal); E89.0 Postprocedural hypothyroidism; E04.2 Nontoxic multinodular goiter; E21.0 Primary hyperparathyroidism; C73 Malignant neoplasm of thyroid gland

== ENCOUNTER → 2017-06-06 | Outpatient (CLI) | payer BC ==
[2017-06-06 10:42] LABS: HEMOGLOBIN 11.3 g/dL (12.2-16.2); LYMPH # 2.4 K/mm3 (0.7-4.5); LYMPH % 38.2 % (10-50.0)
--- NOTE | 2017-06-06 12:20 | RADIOLOGY REPORT PS360 ---
CHEST(2 VIEWS-NOT PORTABLE) HISTORY: HTN ORDERING PHYSICIAN: SHIRIN HART DPM PATIENT AGE: 62 years COMPARISON: 01/09/2017 FINDINGS: The cardiomediastinal silhouette and pulmonary vascularity are within normal limits. The lungs are clear without infiltrates, suspicious nodules, or pleural effusions. No acute bony abnormalities. There are degenerative changes in the thoracic spine IMPRESSION: Negative chest, no acute finding
[2017-06-06 12:25] LABS: BUN 21 mg/dL (7-18); GFR (ESTIMATED) 38 ML/MIN (59-)
== END ==
LOC: LAB 10:22
PROVIDERS: Podiatrist
DX: M20.11 Hallux valgus (acquired), right foot (principal); Z01.810 Encounter for preprocedural cardiovascular examination; Z01.811 Encounter for preprocedural respiratory examination; Z01.812 Encounter for preprocedural laboratory examination

== ENCOUNTER 2017-06-15 06:17 | Day surgery (SDC) | payer BC ==
[~2017-06-15] VITALS: Ht 170.2 cm; Wt 92.5 kg
--- NOTE | 2017-06-15 09:14 | RADIOLOGY REPORT PS360 ---
FOOT-RT-2 VIEWS HISTORY: Follow-up surgery RT BUNIONECTOMY ORDERING PHYSICIAN: SHIRIN HART DPM PATIENT AGE: 62 years COMPARISON: 05/12/2017 FINDINGS: 5 images submitted with the C-arm show interval bunionectomy of the distal first metatarsal along with osteotomy of the distal first metatarsal with placement of a screw. There is minimal lateral displacement of the distal osteotomy fragment. IMPRESSION: Status post bunionectomy and first metatarsal osteotomy as described above
--- NOTE | 2017-06-15 09:14 | Anesthesia Record ---
Anesthesia Record Part I Total IV fluids: 1600 EBL (ml): 15 Urine Output: 0 B/P: 133/69 % SaO2: 96 Pulse: 76 Resps: 16 Temp: 97.9 Patient is: Drowsy, Stable Stable to PACU at: 0910 at 0914
--- NOTE | 2017-06-15 09:15 | Anesthesia Record ---
Anesthesia Record Part II Discharge time: 939 Destination: Same day surgery PACU nurse assessment review? Yes Patient is: Stable Anesthesia complications? No at 0914
--- NOTE | 2017-06-15 09:48 | Operative Note-Podiatry ---
Procedure/Operative Record Procedure DATE OF PROCEDURE 06/15/17 PREOPERATIVE DIAGNOSIS Right hallux abductovalgus deformity POSTOPERATIVE DIAGNOSIS Same as Preop Dx PROCEDURE PERFORMED Right Anthony bunionectomy with vamsi Shields SURGEON Gayatri Alvarez DPM ANESTHESIA General 30 cc 0.5% marcaine plain EBL (ml) 15 OPERATIVE NOTE/DISCHARGE/PLAN Indication for Procedure: Ms. Pineda a 62 y/o female who presents with pain to the right great toe joint. She had a left Anthony bunionectomy over 10 years ago. She complains of pain to right 1st MPJ with activity, walking. Radiographs of the right foot show hallux valgus, long 2nd met/ray. The patient has tried modification of shoe gear, taping, strapping, inserts, ice, elevation, injections, and NSAIDs. After a long discussion with the patient in regards to the conservative vs. surgical treatment for HAV deformity, the patient has elected to proceed with surgery because they have failed conservative treatment and continue to have pain and worsening symptoms affecting daily activities. We discussed doing a more invasive procedure with longer recovery to address all deformities. We discussed doing a Lapidus bunionectomy to address 1st MCJ hypermobility, second metatarsal osteotomy and hammertoe repair. Due the patient's age and her activity level she does not want a lengthy recovery so we have discussed and the patient has agreed to an Anthony bunionectomy. The patient has been instructed on the planned procedure, all the risks vs. benefits of the procedure to include bleeding, infection, nerve and blood vessel damage, need for further surgery, recurrence of soft tissue mass, delay in healing of soft tissue or bone, failure of the bones to heel, non-union, mal-union, prolonged pain and recovery, residual deformity, prolonged swelling, CRPS/RSD, dvt, and anesthetic complications. No guarantees were given. All questions fully answered. The patient verbalized understanding and agreed to proceed with surgery. Consent was obtained. On this date and time patient was deemed an appropriate surgical candidate. With informed consent signed, the patient was taken to the operating theater. The patient was positioned supine. General anesthesia was induced. Tourniquet was applied to the right mid-calf. Right Anthony Bunionectomy with Vamsi Shields: The right lower extremity was prepped and draped in normal sterile fashion. Attention was directed to the 1st metatarsophalangeal joint (MPJ), where a dorsal linear incision was mapped out extending distal from the MPJ to proximal on the met shaft. The tourniquet was inflated at 225 mmHg. Dissection was carried thru skin and subcutaneous tissue with care taken to maintain surgical hemostasis and safely retract neurovascular structures. Dissection was then carried through deep fascia linearly over the 1st MPJ, exposing the met head. There was minor early arthritic changes noted with wearing down of the cartilage on the lateral metatarsal head. A lateral release was performed including releasing the adductor tendon at its insertion on the base of the proximal phalanx. The fibular suspensory ligament was also released. Deformtiy was noted to be reduced. A McGlamry elevator was used to pass underneath the metatarsal heads releasing more of the contracture. Utilizing a sagittal saw the dorsal medial eminence was resected. A standard Anthony chevron osteotomy was then performed the bone capital fragment was shifted laterally and impacted on the metatarsal. The plantar cut on the chevron was short creating a shorter shelf. When the capital fragment was shifted a portion of the plantar shelf started to fracture but did not fracture all the way through the plantar cortex. A 0.062 K wire was used to temporarily fixate the reduction. A second K wire from superior to inferior on the capital fragment medially was then used to fixate the crack in the cortex. Intraoperative fluoroscopy was then utilized to check the reduction. Adequate reduction was noted with alignment of the joint. The wound was flushed with copious amounts of saline. [employer] 3.0 mm cannulated headed screw was inserted in standard technique. Compression was noted across the osteotomy. The fracture was also still in good alignment with no displacement. Good apposition and position was noted. X-ray confirmed position and hardware stable. The wound was again flushed with copious amounts of saline. At this point attention was directed to the medial capsular redundancy was noted. The redundant tissue was resected, medial capsulorrhaphy performed and repaired with 2-0 Vicryl . 4-0 Vicryl was used to close deep tissue in a running fashion. 4-0 Vicryl was used to close subq layer and a running fashion. 4-0 Monocryl was then used to reapproximate the skin in a subcuticular running fashion. Viaflow was inserted into the incision. Mastisol and quarter inch Steri-Strips were then applied to the incision. The tourniquet was deflated after 64 mins and immediate hyperemic response was noted to the digits. Post op ankle block given with 0.5% marcaine plain. The wounds were cleansed. Xeroform, dry sterile dressing was then applied. The patient was awoken from anesthesia and transferred to recovery with vital signs stable and neurovascular status intact. Specimen: None Materials: [employer] 0.9 K wire [employer] 3.0mm partially threaded headed cannulated screw x 1 Viaflow Discharge/Plan: D/C home today when ready and vital signs stable. Patient is to maintain dressing clean dry and intact. Ice top or right foot and elevate on two pillows. Non weight bearing to the right lower extremity with forefoot offloading post op shoe. Patient has the walker. Rx for [place] 7.5 #28, Zofran, Motrin given. Continue vitamin D supplement. Obtain post op films, right foot, 3 views. Follow up with me in 1 week. at 0947
[2017-06-15 11:07] VITALS: BP 148/80
--- NOTE | 2017-06-15 12:26 | RADIOLOGY REPORT PS360 ---
FOOT-RT-3 VIEWS HISTORY: Follow-up surgery POSTOP XRAYS 3 VIEW RIGHT FOOT ORDERING PHYSICIAN: SHIRIN HART DPM PATIENT AGE: 62 years COMPARISON: 05/12/2017 FINDINGS: There has been an interval bunionectomy with osteotomy of the distal aspect of the first metatarsal. A screw and K wire is present at the osteotomy site. There is mild lateral displacement of the distal osteotomy fragment with minimal valgus angulation of the distal osteotomy fragment with good bony apposition. There are osteoarthritic changes of the second metatarsophalangeal joint. There is a small amount postsurgical gas at the first MTP area. IMPRESSION: Postsurgical changes from recent bunionectomy and first metatarsal osteotomy as described above
== END 2017-06-15 10:33 | disposition home or self-care (01) ==
LOC: SDC 06:17
PROVIDERS: Podiatrist
PROC: 0QSN0ZZ Reposition Right Metatarsal, Open Approach (ICD-10-PCS; principal; 2017-06-15 07:30)
DX: M20.11 Hallux valgus (acquired), right foot (principal); I10 Essential (primary) hypertension; E78.5 Hyperlipidemia, unspecified; Z83.3 Family history of diabetes mellitus; Z82.49 Family history of ischemic heart disease and other diseases of the circulatory system; Z88.5 Allergy status to narcotic agent; Z91.048 Other nonmedicinal substance allergy status
CPT/HCPCS: C1713; C1762; C1776; J2405

== ENCOUNTER 2017-08-11 09:05 | Day surgery (SDC) | payer BC ==
--- NOTE | 2017-08-11 12:14 | Operative Note ---
Surgeon/Diagnoses Surgeon/Driver Starting Gate(s) Date of procedure: 08/11/17 Surgeon: MD Quinn Zayas Diagnoses Pre-op diagnosis: screening colonoscopy diverticulosis history of diverticulitis / low anterior resection Post-op diagnosis colon polyp hemorrhoids Procedure Procedure Procedure: Colonoscopy with biopsy (polypectomy by means other than snare) Indications: YONATHAN ROMERO is a 62 year-old Female with a history of need for screening colonoscopy. 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 During initial therapy she did undergo diverting loop ileostomy that has since been taken down. Findings: Bowel preparation relatively fair Hemorrhoidal cushions with no thrombosis or active bleeding Fairly severe tortuosity and spasticity Distal transverse colon polyp Procedure Description: After informed consent was obtained, the patient was taken to the endoscopy suite. IV sedation ensued after she was transferred to the LEFT lateral decubitus position. Digital rectal exam revealed hemorrhoidal cushions with no thrombosis or bleeding. The colonoscope was placed in position. The entire colon was evaluated. Bowel preparation was relatively fair with irrigation and suctioning used to improve visualization. Fairly significant tortuosity and spasticity may visualization difficult. Scattered diverticulosis was noted. A small distal transverse colon polyp was excised with cold biopsy forceps. No additional lesions were seen. The colonoscope was carefully removed and the patient was transferred to recovery. EBL (ml): 1 Anesthesia: IV sedation with 13 mg of Versed and 200 g of fentanyl Complications: No immediate Specimens: Distal transverse colon polyp Disposition Disposition: Stable to recovery from where she will be discharged home. She will follow-up in one week. Repeat colonoscopy is pending pathology but will likely be between 2-3 years secondary to spasticity and tortuosity. at 1211
[2017-08-11 13:58] VITALS: BP 104/86
== END 2017-08-11 13:14 | disposition home or self-care (01) ==
LOC: SDC 09:05
PROVIDERS: Surgery
PROC: 0DBL8ZX Excision of Transverse Colon, Via Natural or Artificial Opening Endoscopic, Diagnostic (ICD-10-PCS; principal; 2017-08-11 09:30)
DX: Z12.11 Encounter for screening for malignant neoplasm of colon (principal); K57.90 Diverticulosis of intestine, part unspecified, without perforation or abscess without bleeding; K63.5 Polyp of colon; K64.9 Unspecified hemorrhoids